=== PATIENT | male | born 1980 | race African-American/Black ===

== ENCOUNTER 2019-06-10 19:43 | Emergency (ER) | payer OTHER ==
[~2019-06-10] VITALS: Ht 170.2 cm; Wt 139.3 kg
[2019-06-10 20:06] VITALS: BP 149/88
[2019-06-10 20:36] LABS: INFLUENZA A PATIENT NEGATIVE (NEGATIVE); INFLUENZA B PATIENT NEGATIVE (NEGATIVE)
[2019-06-10] MEDS: IBUPROFEN 400 MG TABLET. PO ONE (20:47)
[2019-06-10] MEDS: ONDANSETRON ODT 4 MG TAB.RAPDIS. PO ONE (20:47)
[2019-06-10] MEDS: ACETAMINOPHEN 500 MG TABLET PO ONE (20:47)
--- NOTE | 2019-06-10 21:10 | RAD ---
CHEST PA LATERAL History: Fever, cough Comparison: None. Findings: Frontal and lateral views of chest were obtained. Limited pulmonary inflation noted. The cardiomediastinal silhouette is normal. Pulmonary vasculature is normal. The lungs are clear. No pleural effusion or pneumothorax is seen. There is no acute bone abnormality. IMPRESSION: No acute cardiopulmonary process. Electronically signed by: Russ Rojo MD (06/10/2019 9:07 PM) [facility]
[2019-06-10] MEDS ORDERED: ONDA4TAB12 PO (21:29)
--- NOTE | 2019-06-10 21:30 | PHYS DOC ---
Past Medical History Past Medical History: Hypertension (VALENTÍN NARAYAN APRN) Past Surgical History: No Surgical History (VALENTÍN NARAYAN APRN) Alcohol Use: None Drug Use: None (VALENTÍN NARAYAN APRN) Attending Signature I have participated in the care of this patient and I have reviewed and agree with all pertinent clinical information above including history, exam, and recommendations. (ABIMBOLA PANDEY MD) Adult General Chief Complaint Chief Complaint: FLU SYMPTOM HPI HPI Patient is a 38 year old male with history of hypertension who presents to the ED today complaining of fever and body aches, chills that began yesterday. Also complaining of one episode of vomiting yesterday. Denies any abdominal pain. (VALENTÍN NARAYAN APRN) Review of Systems Review of Systems Constitutional: Reports fever, body aches, chills Eyes: Denies change in visual acuity, redness, or eye pain [] HENT: Denies nasal congestion or sore throat [] Respiratory: Denies cough or shortness of breath [] Cardiovascular: No additional information not addressed in HPI [] GI: Reports one episode of vomiting. Denies abdominal pain, nausea, bloody stools or diarrhea [] : Denies dysuria or hematuria [] Musculoskeletal: Denies back pain or joint pain [] Integument: Denies rash or skin lesions [] Neurologic: Denies headache, focal weakness or sensory changes [] All other systems were reviewed and found to be within normal limits, except as documented in this note. (VALENTÍN NARAYAN APRN) Current Medications Current Medications Current Medications Medications (Trade) Dose Ordered Sig/[facility] Start Time Stop Time Status Last Admin Dose Admin Acetaminophen (Tylenol) 1,000 mg 1X ONCE 06/10/19 20:45 06/10/19 20:46 DC 06/10/19 20:47 1,000 MG Ibuprofen (Motrin) 800 mg 1X ONCE 06/10/19 20:45 06/10/19 20:46 DC 06/10/19 20:47 800 MG Ondansetron HCl (Zofran Odt) 4 mg 1X ONCE 06/10/19 20:45 06/10/19 20:46 DC 06/10/19 20:47 4 MG (ABIMBOLA PANDEY MD) Allergies Allergies Allergies Coded Allergies Type Severity Reaction Last Updated Verified No Known Drug Allergies 06/10/19 No (ABIMBOLA PANDEY MD) Physical Exam Physical Exam Constitutional: Well developed, well nourished, no acute distress, non-toxic appearance. [] HENT: Normocephalic, atraumatic, bilateral external ears normal, oropharynx moist, no oral exudates, nose normal. [] Eyes: PERRLA, EOMI, conjunctiva normal, no discharge. [] Neck: Normal range of motion, no tenderness, supple, no stridor. [] Cardiovascular:Heart rate regular rhythm, no murmur [] Lungs & Thorax: Bilateral breath sounds clear to auscultation [] Abdomen: Bowel sounds normal, soft, no tenderness, no masses, no pulsatile masses. [] Skin: Warm, dry, no erythema, no rash. [] Back: No tenderness, no CVA tenderness. [] Extremities: No tenderness, no cyanosis, no clubbing, ROM intact, no edema. [] Neurologic: Alert and oriented X 3, normal motor function, normal sensory function, no focal deficits noted. [] Psychologic: Affect normal, judgement normal, mood normal. [] (VALENTÍN NARAYAN APRN) Current Patient Data Vital Signs Vital Signs Date Time Temp Pulse Resp B/P (MAP) Pulse Ox O2 Delivery O2 Flow Rate FiO2 06/10/19 20:06 102.5 119 20 149/88 (108) 95 Room Air 102.5 (ABIMBOLA PANDEY MD) Lab Values Laboratory Tests Test 06/10/19 20:04 Influenza Type A Antigen Negative (NEGATIVE) Influenza Type B Antigen Negative (NEGATIVE) (ABIMBOLA PANDEY MD) EKG EKG [] (VALENTÍN NARAYAN APRN) Radiology/Procedures Radiology/Procedures [] (VALENTÍN NARAYAN APRN) Course & Med Decision Making Course & Med Decision Making Pertinent Labs and Imaging studies reviewed. (See chart for details) This is a 38-year-old male patient presented to the ED today with multiple aches, chills, symptoms began yesterday. Also complaining of one episode of vomiting yesterday. No abdominal pain. No tenderness of the abdomen. Temperature 102.5 on arrival. Negative influenza A or B, negative chest x-ray. Recommended supportive care measures. Given prescription for Zofran, Tylenol/Motrin for pain or fever. Instructed to push fluids and rest, follow-up with primary care doctor in the course of this week. (VALENTÍN NARAYAN APRN) Dragon Disclaimer Dragon Disclaimer This electronic medical record was generated, in whole or in part, using a voice recognition dictation system. (VALENTÍN NARAYAN APRN) Departure Departure Impression: Primary Impression: Fever Additional Impression: Vomiting Disposition: 01 HOME, SELF-CARE Condition: STABLE Referrals: NO PCP (PCP) follow up with your doctor in 1-2 weeks Patient Instructions: Fever, Adult, [id number], Nausea and Vomiting Additional Instructions: You were evaluated in the emergency room with symptoms suspicious of viral illness. Please push fluids, maintain good hand hygiene. Rest. Please take Tylenol every 4 hours and Motrin every 6 hours. Please take Zofran as needed for nausea or vomiting. Please follow-up with your own doctor in the next 1 week. Come back to the ED at any point symptoms worsen. Scripts Ondansetron (ONDANSETRON ODT) 4 Mg Tab.rapdis 1 TAB PO PRN Q6-8HRS, #16 TAB Prov: VALENTÍN NARAYAN APRN 06/10/19 Problem Qualifiers Primary Impression: Fever Fever type: unspecified Qualified Codes: R50.9 - Fever, unspecified Additional Impression: Vomiting Vomiting type: associated with bulimia nervosa Nausea presence: unspecified Qualified Codes: F50.2 - Bulimia nervosa VALENTÍN NARAYAN APRN Jun 10, 2019 21:29 ABIMBOLA PANDEY MD Jun 10, 2019 21:34
== END 2019-06-10 21:35 | disposition home or self-care (01) ==
LOC: ER 19:43
DX: R50.9 Fever, unspecified (principal); R11.10 Vomiting, unspecified; M79.10 Myalgia, unspecified site; I10 Essential (primary) hypertension
CPT/HCPCS: 71046; 87804; 99285; Q0162

== ENCOUNTER 2019-06-24 18:44 | Emergency (ER) | payer OTHER ==
[~2019-06-24 18:44] MED LIST: ONDA4TAB12 PO
[2019-06-24 19:43] LABS: BILIRUBIN,URINE NEGATIVE (NEG); CLARITY,URINE CLOUDY; COLOR,URINE YELLOW; NITRITE,URINE NEGATIVE (NEG); PROTEIN,URINE NEGATIVE (NEG-TRACE); UROBILINOGEN,URINE 0.2 mg/dL (0.2 mg/dL)
[2019-06-24 19:48] LABS: BACTERIA,URINE 0 /HPF (0-FEW); RBC,URINE OCC /HPF (0-2)
[2019-06-24 19:49] LABS: SQUAMOUS EPITHELIAL CELL,UR OCC /LPF
--- NOTE | 2019-06-24 20:22 | PHYS DOC ---
Past Medical History Past Medical History: Hypertension (CESAR HADDAD APRN) Past Surgical History: No Surgical History (CESAR HADDAD APRN) Alcohol Use: None Drug Use: None (CESAR HADDAD APRN) Attending Signature I have participated in the care of this patient and I have reviewed and agree with all pertinent clinical information above including history, exam, and recommendations. (ABIMBOLA PANDEY MD) Adult General Chief Complaint Chief Complaint: ABDOMINAL PAIN HPI HPI Patient is a 38 year old [male who presents with left lower quadrant abdominal pain. Patient reports he started have some pain earlier today, reports it has gotten a little bit worse. Does report he seems to have some difficulty passing urine. Does state he has taken an ibuprofen earlier today, but has not taken anything since that time. States he does have a loss of appetite, denies any nausea or vomiting. Denies any recent fevers. Denies any dyspnea. Last bowel movement this morning, however does report it was softer than usual and does seem to have some round pellets. (CESAR HADDAD APRN) Review of Systems Review of Systems Constitutional: Denies fever or chills [] Eyes: Denies change in visual acuity, redness, or eye pain [] HENT: Denies nasal congestion or sore throat [] Respiratory: Denies cough or shortness of breath [] Cardiovascular: No additional information not addressed in HPI [] GI: Reports left lower quadrant abdominal pain, minimal nausea. Denies vomiting, denies diarrhea, denies constipation[] : Denies dysuria or hematuria [] Musculoskeletal: Denies back pain or joint pain [] Integument: Denies rash or skin lesions [] Neurologic: Denies headache, focal weakness or sensory changes [] Endocrine: Denies polyuria or polydipsia [] All other systems were reviewed and found to be within normal limits, except as documented in this note. (CESAR HADDAD APRN) Current Medications Current Medications Current Medications Medications (Trade) Dose Ordered Sig/[facility] Start Time Stop Time Status Last Admin Dose Admin Ciprofloxacin (Cipro) 500 mg 1X ONCE 06/24/19 22:30 06/24/19 22:31 DC 06/24/19 22:25 500 MG Ketorolac Tromethamine (Toradol 15mg Vial) 15 mg 1X ONCE 06/24/19 20:30 06/24/19 20:31 DC 06/24/19 20:46 15 MG Metronidazole (Flagyl) 500 mg 1X ONCE 06/24/19 22:30 06/24/19 22:31 DC 06/24/19 22:25 500 MG Ondansetron HCl (Zofran) 4 mg 1X ONCE 06/24/19 20:30 06/24/19 20:31 DC 06/24/19 20:46 4 MG Sodium Chloride 1,000 ml @ 1,000 mls/hr 1X ONCE 06/24/19 20:30 06/24/19 21:29 DC 06/24/19 20:30 1,000 MLS/HR (ABIMBOLA PANDEY MD) Allergies Allergies Allergies Coded Allergies Type Severity Reaction Last Updated Verified No Known Drug Allergies 06/10/19 No (ABIMBOLA PANDEY MD) Physical Exam Physical Exam Constitutional: Well developed, well nourished, no acute distress, non-toxic appearance. Obese[] Eyes: PERRLA, EOMI, conjunctiva normal, no discharge. [] Neck: Normal range of motion, no tenderness, supple, no stridor. [] Cardiovascular:Heart rate regular rhythm, no murmur [] Lungs & Thorax: Bilateral breath sounds clear to auscultation [] Abdomen: Bowel sounds diminished overall, soft, left lower quadrant tenderness, no masses, no pulsatile masses. [] Skin: Warm, dry, no erythema, no rash. [] Back: No tenderness, no CVA tenderness. [] Extremities: No tenderness, no cyanosis, no clubbing, ROM intact, no edema. [] Neurologic: Alert and oriented X 3, normal motor function, normal sensory function, no focal deficits noted. [] Psychologic: Affect normal, judgement normal, mood normal. [] (CESAR HADDAD APRN) Current Patient Data Vital Signs Vital Signs Date Time Temp Pulse Resp B/P (MAP) Pulse Ox O2 Delivery O2 Flow Rate FiO2 06/24/19 22:29 104 22 154/97 (116) 98 Room Air 06/24/19 19:44 98.6 98.6 (ABIMBOLA PANDEY MD) Lab Values Laboratory Tests Test 06/24/19 19:25 06/24/19 20:50 Urine Collection Type Unknown Urine Color Yellow Urine Clarity Cloudy Urine pH 5.0 Urine Specific Ward 1.015 Urine Protein Negative mg/dL (NEG-TRACE) Urine Glucose (UA) Negative mg/dL (NEG) Urine Ketones (Stick) Negative mg/dL (NEG) Urine Blood Negative (NEG) Urine Nitrite Negative (NEG) Urine Bilirubin Negative (NEG) Urine Urobilinogen Dipstick 0.2 mg/dL (0.2 mg/dL) Urine Leukocyte Esterase Negative (NEG) Urine RBC Occ /HPF (0-2) Urine WBC 1-4 /HPF (0-4) Urine Squamous Epithelial Cells Occ /LPF Urine Bacteria 0 /HPF (0-FEW) Urine Mucus Mod /LPF White Blood Count 11.2 x10^3/uL (4.0-11.0) H Red Blood Count 6.10 x10^6/uL (4.30-5.70) H Hemoglobin 13.8 g/dL (13.0-17.5) Hematocrit 43.5 % (39.0-53.0) Mean Corpuscular Volume 71 fL (79-100) L Mean Corpuscular Hemoglobin 23 pg (25-35) L Mean Corpuscular Hemoglobin Concent 32 g/dL (31-37) Red Cell Distribution Width 15.1 % (11.5-14.5) H Platelet Count 315 x10^3/uL (140-400) Neutrophils (%) (Auto) 73 % (31-73) Lymphocytes (%) (Auto) 18 % (24-48) L Monocytes (%) (Auto) 8 % (0-9) Eosinophils (%) (Auto) 0 % (0-3) Basophils (%) (Auto) 1 % (0-3) Neutrophils # (Auto) 8.1 x10^3/uL (1.8-7.7) H Lymphocytes # (Auto) 2.0 x10^3/uL (1.0-4.8) Monocytes # (Auto) 0.9 x10^3/uL (0.0-1.1) Eosinophils # (Auto) 0.0 x10^3/uL (0.0-0.7) Basophils # (Auto) 0.1 x10^3/uL (0.0-0.2) Platelet Estimate Adequate (ADEQUATE) Polychromasia Slight Hypochromasia Mod Microcytosis Marked Sodium Level 135 mmol/L (136-145) L Potassium Level 3.7 mmol/L (3.5-5.1) Chloride Level 99 mmol/L (98-107) Carbon Dioxide Level 28 mmol/L (21-32) Anion Gap 8 (6-14) Blood Urea Nitrogen 9 mg/dL (8-26) Creatinine 1.1 mg/dL (0.7-1.3) Estimated GFR (Cockcroft-Gault) 90.6 BUN/Creatinine Ratio 8 (6-20) Glucose Level 119 mg/dL (70-99) H Calcium Level 9.2 mg/dL (8.5-10.1) Total Bilirubin 0.7 mg/dL (0.2-1.0) Aspartate Amino Transferase (AST) 15 U/L (15-37) Alanine Aminotransferase (ALT) 26 U/L (16-63) Alkaline Phosphatase 60 U/L (46-116) Total Protein 7.8 g/dL (6.4-8.2) Albumin 3.6 g/dL (3.4-5.0) Albumin/Globulin Ratio 0.9 (1.0-1.7) L Lipase 64 U/L (73-393) L Laboratory Tests 06/24/19 20:50 Laboratory Tests 06/24/19 20:50 (ABIMBOLA PANDEY MD) EKG EKG [] (CESAR HADDAD APRN) Radiology/Procedures Radiology/Procedures [] Mild basilar volume loss. Unremarkable visualized heart. Limited evaluation of the solid abdominal and pelvic organs without intravenous contrast. No focal hepatic abnormality. Small focus of mineralization along the right liver margin on image 21 series 2. Unremarkable gallbladder, pancreas, spleen and adrenal glands. No nephrolithiasis or hydroureteronephrosis. Unremarkable urinary bladder and prostate. Segmental colonic wall thickening with surrounding inflammatory changes involving the mid descending colon. Punctate focus of air medial to the colon in this region, image 52 series 2. This is favored air within an inflamed diverticulia when correlating with coronal image 32 series 4. No fluid collection. Normal appendix. Nonobstructed small bowel. Unremarkable stomach. Minimal vascular calcifications. No free pelvic fluid. Age accelerated lower lumbar facet degeneration at L5-S1 more so than L4-L5. This results in bony neural foraminal encroachment on the left more so than right at L5-S1. This is severe on the left. Impression: 1. Colonic wall edema and surrounding inflammatory changes involving the mid descending colon that appears secondary to diverticulitis. Tiny focus of air along the colon that is surrounded by inflammatory changes is favored secondary to air within an inflamed diverticula as opposed to a small contained perforation. No fluid collection or bowel obstruction. 2. Age-accelerated lower lumbar facet degeneration. This results in severe bony neural foraminal encroachment on the left at L5-S1. Recommend correlation for chronic symptoms referrable to the left L5 distribution. Electronically signed by: SHERIE MAGALLON MD (06/24/2019 9:23 PM) [facility] [place] (CESAR HADDAD APRN) Course & Med Decision Making Course & Med Decision Making Pertinent Labs and Imaging studies reviewed. (See chart for details) [Reviewed results with patient, will treat patient. One dose here and we'll provide prescription for remaining medications. Patient advised to avoid alcohol taking metronidazole. Advised patient to take the entire course as prescribed. Advised patient to watch his diet, increase fiber, follow up with primary care (CESAR HADDAD APRN) Dragon Disclaimer Dragon Disclaimer This electronic medical record was generated, in whole or in part, using a voice recognition dictation system. (CESAR HADDAD APRN) Departure Departure Impression: Primary Impression: Diverticulitis Disposition: HOME, SELF-CARE Condition: GOOD Referrals: NO PCP (PCP) Patient Instructions: Diverticulitis, [id number] Additional Instructions: As he described, make sure to take the antibiotics as prescribed for the entire duration. Avoid alcohol when taking the medication. Try to increase fiber in your diet. Scripts Ciprofloxacin Hcl (CIPROFLOXACIN HCL) 500 Mg Tablet 1 TAB PO BID, #20 TAB Prov: CESAR HADDAD APRN 06/24/19 Metronidazole (METRONIDAZOLE) 500 Mg Tablet 1 TAB PO TID for 10 Days, #30 TAB 0 Refills Prov: CESAR HADDAD APRN 06/24/19 CESAR HADDAD APRN Jun 24, 2019 20:22 ABIMBOLA PANDEY MD Jun 25, 2019 07:55
[2019-06-24] MEDS: IV NORMAL SALINE 1000ML BAG 1,000 ML IV ONE (20:30)
[2019-06-24] MEDS: ONDANSETRON PF 4 MG/2 ML VIAL. IVP ONE (20:46)
[2019-06-24] MEDS: KETOROLAC 15 MG/ML VIAL. IVP ONE (20:46)
[2019-06-24 21:02] LABS: BASO # 0.1 x10^3/uL (0.0-0.2); BASO % 1 % (0-3); EOS % 0 % (0-3); HEMATOCRIT 43.5 % (39.0-53.0); HEMOGLOBIN 13.8 g/dL (13.0-17.5); LYMPH % 18 % (24-48); MEAN CORPUSCULAR HEMOGLOBIN 23 pg (25-35); MEAN CORPUSCULAR HGB CONC 32 g/dL (31-37); MEAN CORPUSCULAR VOLUME 71 fL (79-100); MONO # 0.9 x10^3/uL (0.0-1.1); MONO % 8 % (0-9); NEUT # 8.1 x10^3/uL (1.8-7.7); NEUT % 73 % (31-73); PLATELET COUNT 315 x10^3/uL (140-400); RED CELL DISTRIBUTION WIDTH 15.1 % (11.5-14.5); WHITE BLOOD COUNT 11.2 x10^3/uL (4.0-11.0)
[2019-06-24 21:11] LABS: CALCIUM 9.2 mg/dL (8.5-10.1); CREATININE 1.1 mg/dL (0.7-1.3); GFR 90.6; POTASSIUM 3.7 mmol/L (3.5-5.1)
[2019-06-24 21:18] LABS: ALBUMIN 3.6 g/dL (3.4-5.0); ALBUMIN/GLOBULIN RATIO 0.9 (1.0-1.7); TOTAL BILIRUBIN 0.7 mg/dL (0.2-1.0); TOTAL PROTEIN 7.8 g/dL (6.4-8.2)
--- NOTE | 2019-06-24 21:26 | RAD ---
Study: CT abdomen and pelvis without contrast Indication: Left lower quadrant abdominal pain. Comparison: None. Technique: Helical CT imaging performed of the abdomen and pelvis without the use of intravenous contrast. Sagittal and coronal reformats were obtained. One or more of the following individualized dose reduction techniques were utilized for this examination: 1. Automated exposure control 2. Adjustment of the mA and/or kV according to patient size 3. Use of iterative reconstruction technique. Findings: Mild basilar volume loss. Unremarkable visualized heart. Limited evaluation of the solid abdominal and pelvic organs without intravenous contrast. No focal hepatic abnormality. Small focus of mineralization along the right liver margin on image 21 series 2. Unremarkable gallbladder, pancreas, spleen and adrenal glands. No nephrolithiasis or hydroureteronephrosis. Unremarkable urinary bladder and prostate. Segmental colonic wall thickening with surrounding inflammatory changes involving the mid descending colon. Punctate focus of air medial to the colon in this region, image 52 series 2. This is favored air within an inflamed diverticulia when correlating with coronal image 32 series 4. No fluid collection. Normal appendix. Nonobstructed small bowel. Unremarkable stomach. Minimal vascular calcifications. No free pelvic fluid. Age accelerated lower lumbar facet degeneration at L5-S1 more so than L4-L5. This results in bony neural foraminal encroachment on the left more so than right at L5-S1. This is severe on the left. Impression: 1. Colonic wall edema and surrounding inflammatory changes involving the mid descending colon that appears secondary to diverticulitis. Tiny focus of air along the colon that is surrounded by inflammatory changes is favored secondary to air within an inflamed diverticula as opposed to a small contained perforation. No fluid collection or bowel obstruction. 2. Age-accelerated lower lumbar facet degeneration. This results in severe bony neural foraminal encroachment on the left at L5-S1. Recommend correlation for chronic symptoms referrable to the left L5 distribution. Electronically signed by: SHERIE MAGALLON MD (06/24/2019 9:23 PM) [facility] [place]
[2019-06-24 21:35] LABS: HYPOCHROMIA MOD; MICROCYTOSIS MARKED; PLT ESTIMATE ADEQUATE (ADEQUATE); POLYCHROMASIA SLIGHT
[2019-06-24] MEDS ORDERED: METR-34 PO (22:23)
[2019-06-24] MEDS ORDERED: CIPR500T PO (22:23)
[2019-06-24] MEDS: CIPROFLOXACIN HCL 250 MG TABLET. PO ONE (22:25)
[2019-06-24] MEDS: metroNIDAZOLE 500 MG TABLET PO ONE (22:25)
[2019-06-24 22:29] VITALS: BP 154/97
== END 2019-06-24 22:32 | disposition home or self-care (01) ==
LOC: ER 18:44
DX: K57.92 Diverticulitis of intestine, part unspecified, without perforation or abscess without bleeding (principal); I10 Essential (primary) hypertension; R19.7 Diarrhea, unspecified
CPT/HCPCS: 36415; 74176; 80053; 81001; 83690; 85025; 96361; 96374; 96375; 99285; J1885; J2405; J7030

== ENCOUNTER 2021-03-08 09:44 | Emergency (ER) | payer OTHER ==
[~2021-03-08] VITALS: Ht 175.3 cm; Wt 135.4 kg
[~2021-03-08 09:44] MED LIST changes: +CIPR500T2 PO; +METR-34 PO
--- NOTE | 2021-03-08 10:08 | PHYS DOC ---
Past Medical History Past Medical History: Hypertension (KAREL MONROY RECLAMATION ENGINEER) Past Surgical History: No Surgical History (KAREL MONROY RECLAMATION ENGINEER) Smoking Status: Former Smoker Alcohol Use: None Drug Use: None (KAREL MONROY APRN) General Adult EDM: Chief Complaint: NAUSEA/VOMITING/DIARRHEA HPI: HPI: Patient is a 40 year old male who presents with last week he had diarrhea nausea and vomiting but this week he has had this nausea and vomiting epigastric pain. He states that the pain does not radiate and just sits in the epigastric area and is like a dull and sharp type pain. He denies fever, chest pain, shortness of breath, cough, headache, dizziness, syncope, vision change, numbness or tingling, focal weakness, blood in his vomit or stool. He states he takes no medications daily. He is a smoker and he did have the Covid Norm & Norm vaccine in September. He does have a history of in our charting that says he has hypertension. He states he has been keeping some water and Gatorade down. (KAREL MONROY RECLAMATION ENGINEER) Review of Systems: Review of Systems: Constitutional: Denies fever or chills. [] Eyes: Denies change in visual acuity. [] HENT: Denies nasal congestion or sore throat. [] Respiratory: Denies cough or shortness of breath. [] Cardiovascular: Denies chest pain or edema. [] GI: + Epigastric abdominal pain, +nausea, +vomiting, denies bloody stools or +diarrhea. [] : Denies dysuria. [] Musculoskeletal: Denies back pain or joint pain. [] Integument: Denies rash. [] Neurologic: Denies headache, focal weakness or sensory changes. [] Endocrine: Denies polyuria or polydipsia. [] Lymphatic: Denies swollen glands. [] Psychiatric: Denies depression or anxiety. [] (KAREL MONROY RECLAMATION ENGINEER) Heart Score: C/O Chest Pain: No HEART Score for Chest Pain: HEART Score for Chest Pain Response (Comments) Value History Slighlty/Non-Suspicious 0 ECG Normal 0 Age < 45 0 Risk Factors 1 or 2 Risk Factors 1 Troponin < Normal Limit 0 Total 1 Risk Factors: Risk Factors: DM, Current or recent (<one month) smoker, HTN, HLP, family history of CAD, obesity. Risk Scores: Score 0 - 3: 2.5% MACE over next 6 weeks - Discharge Home Score 4 - 6: 20.3% MACE over next 6 weeks - Admit for Clinical Observation Score 7 - 10: 72.7% MACE over next 6 weeks - Early Invasive Strategies (KAREL MONROY APRN) Current Medications: Current Medications Medications (Trade) Dose Ordered Sig/Marybeth Start Time Stop Time Status Last Admin Dose Admin Famotidine (Pepcid Vial) 20 mg 1X ONCE 03/08/21 10:00 03/08/21 10:01 UNV Ondansetron HCl (Zofran) 4 mg 1X ONCE 03/08/21 10:00 03/08/21 10:01 UNV Sodium Chloride 1,000 ml @ 1,000 mls/hr Q1H 03/08/21 10:00 03/08/21 10:59 UNV (KAREL MONROY APRN) Allergies: Allergies: Allergies Coded Allergies Type Severity Reaction Last Updated Verified No Known Drug Allergies 06/10/19 No (KAREL MONROY APRN) Physical Exam: PE: Constitutional: Well developed, well nourished, no acute distress, non-toxic appearance. [] HENT: Normocephalic, atraumatic, bilateral external ears normal, oropharynx moist, no oral exudates, nose normal. [] Eyes: PERRLA, EOMI, conjunctiva normal, no discharge. [] Neck: Normal range of motion, no tenderness, supple, no stridor. [] Cardiovascular:Heart rate regular rhythm, no murmur [] Lungs & Thorax: Bilateral breath sounds clear to auscultation [] Abdomen: Bowel sounds normal, soft, epigastric tenderness, no masses, no pulsatile masses. [] Skin: Warm, dry, no erythema, no rash. [] Back: No tenderness, no CVA tenderness. [] Extremities: No tenderness, no cyanosis, no clubbing, ROM intact, no edema. [] Neurologic: Alert and oriented X 3, normal motor function, normal sensory function, no focal deficits noted. [] Psychologic: Affect normal, judgement normal, mood normal. [] (KAREL MONROY APRN) EKG: EK and read by Dr. Johnson is sinus rhythm and no STEMI. No ischemic changes (KAREL MONROY APRN) Radiology/Procedures: Radiology/Procedures: [] Impression: [facility] [address] [place], [place] [id number] IMAGING REPORT Signed PATIENT: BYRNO PRADO ACCOUNT: [id number] : 1980 LOCATION: ER AGE: 40 SEX: M EXAM STATUS: REG ER ORD. PHYSICIAN: KAREL MONROY APRN REASON: diarrhea, vomiting, nausea, abdominal tenderness PROCEDURE: CT ABD PELV W/ IV CONTRST ONLY PQRS Compliance Statement: One or more of the following individualized dose reduction techniques were utilized for this examination: 1. Automated exposure control 2. Adjustment of the mA and/or kV according to patient size 3. Use of iterative reconstruction technique CT abdomen/pelvis with contrast 03/08/2021 12:03 PM INDICATION: Diarrhea, vomiting, nausea and abdominal tenderness COMPARISON: CT abdomen 06/24/2019 TECHNIQUE: Multiple axial CT images of the abdomen and pelvis were obtained after the intravenous administration of Isovue-370. Coronal and sagittal refor mats are provided. FINDINGS: Evaluation of the abdomen is limited by motion artifact. There is bibasilar subsegmental atelectasis and/or scarring. Mild cardiomegaly. Pancreas and gallbladder are normal in appearance. Liver, spleen, and adrenal glands are normal in appearance. The abdominal aorta is normal in course and caliber. There are no pathologically enlarged lymph nodes in the abdomen and pelvis. There is no abdominal free fluid. There is no free intraperitoneal air. Small and large bowel are normal in caliber. There is no evidence for bowel obstruction. There are no pericolonic inflammatory changes. A normal, nondilated appendix is visualized without adjacent inflammatory changes. There is ill-defined hypoenhancement of the interpolar left kidney measuring approximately 4.4 x 3.0 cm with perinephric fat stranding. Additional wedge- shaped area of hypoattenuation identified along the inferior pole of left kidney. Findings are most suggestive of pyelonephritis. Urinary bladder is within normal limits given degree of distention. Prostate and seminal vesicles are normal. Small fat-containing bilateral inguinal hernias. No suspicious osseous abnormality is identified. IMPRESSION: Constellation of findings is most suggestive of pyelonephritis involving the left kidney. Correlate with urinalysis. If there are no signs or symptoms of infection, this may increase suspicion for underlying renal neoplasm. Short-term follow-up renal mass protocol CT could be of benefit to assess for resolution or underlying neoplastic process. Electronically signed by: Tone Kramer MD (03/08/2021 12:40 PM) [id number] DICTATED and SIGNED BY: TONE KRAMER MD DATE: 03/08/21 [id number] [facility] [address] [place], [place] [id number] IMAGING REPORT Signed PATIENT: BYRON PRADO ACCOUNT: [id number] : 1980 LOCATION: ER AGE: 40 SEX: M EXAM STATUS: REG ER ORD. PHYSICIAN: KAREL MONROY APRN REASON: ABDNORMAL FINDINGS ON CT PROCEDURE: RENAL COMPLETE LEFT EXAM: RENAL ULTRASOUND CLINICAL HISTORY: Reason: ABDNORMAL FINDINGS ON CT specifically, findings of pyelonephritis of the left kidney although underlying mass lesion cannot be excluded. Vomiting/nausea and abdominal tenderness. COMPARISON: CT study performed today. TECHNIQUE: Ultrasound examination of the bilateral kidneys and urinary bladder was performed. FINDINGS: The longitudinal and AP and transverse dimensions of the left kidney are 12.8 cm and 5.5 cm and 5.0 cm respectively. No hydronephrosis or renal mass or per inephric fluid collection is seen on the left side. The right kidney was not evaluated sonographically. The urinary bladder is not abnormally distended. No intraluminal echodensities or masses are seen. IMPRESSION: Normal left renal sonogram. No obvious mass lesion is seen sonographically. Finding seen on CT are consistent with pyelonephritis. Electronically signed by: Senthil Wilcox MD (03/08/2021 3:08 PM) [id number] DICTATED and SIGNED BY: SENTHIL WILCOX MD DATE: 03/08/21 [id number] (KAREL MONROY APRN) Course & Med Decision Making: Course & Med Decision Making Pertinent Labs and Imaging studies reviewed. (See chart for details) COVID-19 CRITERIA: The patient was evaluated during the global COVID-19 pandemic, and that diagnosis was suspected/considered upon their initial p resentation. Their evaluation, treatment and testing was consistent with current guidelines for patients who present with complaints or symptoms that may be related to COVID-19. Alert and oriented x4. Ambulatory steady gait. Speaks in full clear sentences. Skin pink warm and dry. Afebrile. Abdomen is soft but tender to the epigastric area. No rigidity. Lungs are clear to auscultation all lobes. CT scan reading suggesting findings of pyelonephritis and possible underlying renal neoplasm. I have ordered Rocephin IV. He is also received a liter of IV fluid. Troponin only slight elevated at 0.021. No specific Ekg changes to suspect STEMI or cardiac event, also all symptoms have been going on for [address] Johnson aware of this and states no need to repeat troponin. Heart score is a 1. Renal US showed no acute findings. Urinalysis does not show infection or bacteria. No kidney symptoms. Patient has Gastroenteritis likely. I have gone over these findings with Dr Johnson and he states to send patient home and to follow up with primary care provider. [] (KAREL MONROY APRN) Course & Med Decision Making I discussed the case with the [facility] staff. Patient presented with several weeks of gastrointestinal symptoms and epigastric discomfort. EKG was nonischemic. Troponin did not meet levels for NSTEMI. Given duration of symptoms, do not feel that delta troponin would be helpful at this time. Patient is a 40-year-old male without coronary risk factor and no typical chest pain. Likelihood of CAD is very low. CT imaging did show some perinephric fat stranding on the left, but the patient did not report any urinary symptoms to suggest infection and his UA was without infectious changes. UA also did not show any blood. Ultrasound follow-up study showed a normal appearance of the kidney, no evidence of neoplasm. Given no urinary symptoms antibiotic coverage was deferred after he initially had Rocephin ordered in the ED. He was instructed to follow-up with his PCP regarding his ED work-up. (MAKAYLA JOHNSON MD) Dragon Disclaimer: Dragon Disclaimer: This electronic medical record was generated, in whole or in part, using a voice recognition dictation system. (KAREL MONROY APRN) COVID-19 Patient Risks: Age 65 or older: No Sign of co-morbidity: Yes Exp to person + for COVID: No Exp to PUI: No Travel from affected area: No Lower respiratory symptoms: Yes Fever: No Other: Yes (N,V) (KAREL MONROY APRN) PPE Use: Full PPE with N95 mask or PAPR: Yes (KAREL MONROY APRN) Departure Departure Impression: Primary Impression: Nausea & vomiting Qualified Codes: R11.2 - Nausea with vomiting, unspecified Additional Impressions: Diarrhea Qualified Codes: R19.7 - Diarrhea, unspecified Abnormal radiologic findings on diagnostic imaging of left kidney Disposition: HOME / SELF CARE / HOMELESS Condition: STABLE Referrals: NO PCP (PCP) Patient Instructions: Diarrhea, Diet for Diarrhea, Adult, Incidental Abnormal Radiological Finding, Nausea and Vomiting Additional Instructions: Follow-up with your primary care provider soon as possible. Drink plenty of fluids. If you continue to have vomiting and diarrhea or pain you need to return emergency room. Scripts Ondansetron (ONDANSETRON ODT) 4 Mg Tab.rapdis 1 TAB PO PRN Q6-8HRS, #16 TAB Prov: KAREL MONROY APRN 03/08/21 Famotidine (FAMOTIDINE) 20 Mg Tablet 20 MG PO BID, #25 TAB Prov: KAREL MONROY APRN 03/08/21 KAREL MONROY APRN Mar 08, 2021 10:08 MAKAYLA JOHNSON MD Mar 08, 2021 15:48
[2021-03-08] MEDS: IOHEXOL 300 MG/ML 100ML VIAL. IV ONE (10:15)
[2021-03-08] MEDS ORDERED: CONTRAST GIVEN. MC PRN (10:15)
[2021-03-08] MEDS: IV NORMAL SALINE 1000ML BAG 1,000 ML IV SCH (10:21)
[2021-03-08] MEDS: ONDANSETRON PF 4 MG/2 ML VIAL. IVP ONE (10:21)
[2021-03-08] MEDS: FAMOTIDINE 20 MG/2 ML VIAL IVP ONE (10:21)
[2021-03-08 10:34] LABS: BASO # 0.1 x10^3/uL (0.0-0.2); BASO % 1 % (0-3); EOS % 0 % (0-3); HEMATOCRIT 42.4 % (39.0-53.0); HEMOGLOBIN 13.8 g/dL (13.0-17.5); LYMPH # 2.4 x10^3/uL (1.0-4.8); LYMPH % 27 % (24-48); MEAN CORPUSCULAR HEMOGLOBIN 24 pg (25-35); MEAN CORPUSCULAR HGB CONC 33 g/dL (31-37); MEAN CORPUSCULAR VOLUME 72 fL (79-100); MONO # 0.9 x10^3/uL (0.0-1.1); MONO % 10 % (0-9); NEUT # 5.7 x10^3/uL (1.8-7.7); NEUT % 62 % (31-73); PLATELET COUNT 266 x10^3/uL (140-400); RED BLOOD COUNT 5.86 x10^6/uL (4.30-5.70); RED CELL DISTRIBUTION WIDTH 14.5 % (11.5-14.5); WHITE BLOOD COUNT 9.1 x10^3/uL (4.0-11.0)
[2021-03-08 11:33] LABS: CALCIUM 8.4 mg/dL (8.5-10.1); CREATININE 1.2 mg/dL (0.7-1.3); GFR 81.1; POTASSIUM 3.6 mmol/L (3.5-5.1)
[2021-03-08 11:42] LABS: ALBUMIN 3.2 g/dL (3.4-5.0); ALBUMIN/GLOBULIN RATIO 0.9 (1.0-1.7); MAGNESIUM 2.1 mg/dL (1.8-2.4); TOTAL BILIRUBIN 0.9 mg/dL (0.2-1.0); TOTAL PROTEIN 6.7 g/dL (6.4-8.2)
[2021-03-08 13:24] LABS: BILIRUBIN,URINE NEGATIVE (NEG); CLARITY,URINE CLEAR; COLOR,URINE YELLOW; NITRITE,URINE NEGATIVE (NEG); PH,URINE 5.5 (<5.0-8.0); PROTEIN,URINE NEGATIVE (NEG-TRACE)
[2021-03-08 13:31] LABS: BARBITURATES NEG (NEG); BENZODIAZEPINES NEG (NEG); CANNABINOIDS POS (NEG); COCAINE NEG (NEG); METHADONE NEG (NEG); OPIATES NEG (NEG); PHENCYCLIDINE NEG (NEG)
[2021-03-08 13:33] LABS: AMPHETAMINE/METHAMPHETAMINE NEG (NEG); HYALINE CASTS, URINE FEW /HPF
[2021-03-08 13:38] LABS: BACTERIA,URINE 0 /HPF (0-FEW); RBC,URINE 0 /HPF (0-2); WBC,URINE 0 /HPF (0-4)
--- NOTE | 2021-03-08 14:00 | RAD ---
PQRS Compliance Statement: One or more of the following individualized dose reduction techniques were utilized for this examinat ion: 1. Automated exposure control 2. Adjustment of the mA and/or kV according to patient size 3. Use of iterative reconstruction technique CT abdomen/pelvis with contrast 03/08/2021 12:03 PM INDICATION: Diarrhea, vomiting, nausea and abdominal tenderness COMPARISON: CT abdomen 06/24/2019 TECHNIQUE: Multiple axial CT images of the abdomen and pelvis were obtained after the intravenous adm inistration of Isovue-370. Coronal and sagittal reformats are provided. FINDINGS: Evaluation of the abdomen is limited by motion artifact. There is bibasilar subsegmental at electasis and/or scarring. Mild cardiomegaly. Pancreas and gallbladder are normal in appearance. Live r, spleen, and adrenal glands are normal in appearance. The abdominal aorta is normal in course and caliber. There are no pathologically enlarged lymph nodes in the abdomen and pelvis. There is no abdominal free fluid. There is no free intraperitoneal air. Small and large bowel are normal in caliber. There is no evidence for bowel obstruction. There are no pericolonic inflammatory changes. A normal, nondilated appendix is visualized without adjacent infla mmatory changes. There is ill-defined hypoenhancement of the interpolar left kidney measuring approximately 4.4 x 3.0 cm with perinephric fat stranding. Additional wedge-shaped area of hypoattenuation identified along t he inferior pole of left kidney. Findings are most suggestive of pyelonephritis. Urinary bladder is within normal limits given degree of distention. Prostate and seminal vesicles are normal. Small fat-containing bilateral inguinal hernias. No suspicious osseous abnormality is identi fied. IMPRESSION: Constellation of findings is most suggestive of pyelonephritis involving the left kidney. Correlate w ith urinalysis. If there are no signs or symptoms of infection, this may increase suspicion for under lying renal neoplasm. Short-term follow-up renal mass protocol CT could be of benefit to assess for r esolution or underlying neoplastic process. Electronically signed by: Wendi Mello MD (03/08/2021 12:40 PM) [id number]
[2021-03-08] MEDS: cefTRIAXone IV Push 1 GM VIAL. IVP ONE (14:11)
--- NOTE | 2021-03-08 15:11 | RAD ---
EXAM: RENAL ULTRASOUND CLINICAL HISTORY: Reason: ABDNORMAL FINDINGS ON CT specifically, findings of pyelonephritis of the l eft kidney although underlying mass lesion cannot be excluded. Vomiting/nausea and abdominal tenderne ss. COMPARISON: CT study performed today. TECHNIQUE: Ultrasound examination of the bilateral kidneys and urinary bladder was performed. FINDINGS: The longitudinal and AP and transverse dimensions of the left kidney are 12.8 cm and 5.5 cm and 5.0 c m respectively. No hydronephrosis or renal mass or perinephric fluid collection is seen on the left s francia. The right kidney was not evaluated sonographically. The urinary bladder is not abnormally disten ded. No intraluminal echodensities or masses are seen. IMPRESSION: Normal left renal sonogram. No obvious mass lesion is seen sonographically. Finding seen on CT are co nsistent with pyelonephritis. Electronically signed by: Gaudencio Wilcox MD (03/08/2021 3:08 PM) [id number]
--- NOTE | 2021-03-08 15:18 | EKG ---
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
[2021-03-08] MEDS ORDERED: ONDA4TAB12 PO (15:20)
[2021-03-08] MEDS ORDERED: FAMO20TA5 PO (15:20)
[2021-03-08 15:30] VITALS: BP 152/99
== END 2021-03-08 15:50 | disposition home or self-care (01) ==
LOC: ER 09:44
DX: R11.2 Nausea with vomiting, unspecified (principal); Z20.822 Contact with and (suspected) exposure to COVID-19; R19.7 Diarrhea, unspecified; R93.422 Abnormal radiologic findings on diagnostic imaging of left kidney; R10.13 Epigastric pain; I10 Essential (primary) hypertension; Z87.891 Personal history of nicotine dependence
CPT/HCPCS: 36415; 74177; 76775; 80053; 80307; 81001; 83690; 83735; 84484; 85025; 87426; 93005; 96361; 96374; 96375; 99285; J0696; J2405; J3490; J7030; Q9967; U0003; U0005

== ENCOUNTER 2021-03-15 02:43 | Inpatient (IN) | payer OTHER ==
[~2021-03-15] VITALS: Ht 175.3 cm; Wt 136.5 kg
[~2021-03-15 02:43] MED LIST changes: +FAMO20TA5 PO
--- NOTE | 2021-03-15 04:03 | PHYS DOC ---
Past Medical History Past Medical History: Hypertension Past Surgical History: No Surgical History Smoking Status: Current Every Day Smoker Alcohol Use: None Drug Use: None General Adult EDM: Chief Complaint: SHORTNESS OF BREATH HPI: HPI: Patient is a 40-year-old male who presents for shortness of breath. He is here 1 week ago for similar complaints in addition to constellation of upper respiratory and gastrointestinal symptoms that were nonconcerning for any emergent or surgical issues, he is Covid negative at that time with unremarkable work-up and discharged home. He reports improvement in URI symptoms but ongoing shortness of breath that is worse when lying flat in addition to intermittent nausea and looser stools than usual. He denies any significant cardiac history or other known medical issues, takes no medications on a daily basis. He smokes, denies alcohol or illicit drug abuse. Has no significant family medical history for early cardiac . States that he was trying to sleep this evening but was having worsening shortness of breath when lying flat and at times, woke up in a panic gasping for breath. Review of Systems: Review of Systems: Fourteen body systems of review of systems have been reviewed. See HPI for pertinent positives and negative responses, other dixon all other systems are negative, non-pertinent or non-contributory Heart Score: C/O Chest Pain: No HEART Score for Chest Pain: HEART Score for Chest Pain Response (Comments) Value History Slighlty/Non-Suspicious 0 ECG Normal 0 Age < 45 0 Risk Factors 1 or 2 Risk Factors 1 Troponin < Normal Limit 0 Total 1 Risk Factors: Risk Factors: DM, Current or recent (<one month) smoker, HTN, HLP, family history of CAD, obesity. Risk Scores: Score 0 - 3: 2.5% MACE over next 6 weeks - Discharge Home Score 4 - 6: 20.3% MACE over next 6 weeks - Admit for Clinical Observation Score 7 - 10: 72.7% MACE over next 6 weeks - Early Invasive Strategies Allergies: Allergies: Allergies Coded Allergies Type Severity Reaction Last Updated Verified No Known Drug Allergies 06/10/19 No Physical Exam: PE: Constitutional: Well developed, well nourished and obese, nontoxic in appearance but appears uncomfortable HENT: Normocephalic, atraumatic, bilateral external ears normal, oropharynx moist, no oral exudates, nose normal. Eyes: PERRLA, EOMI, conjunctiva normal, no discharge. Neck: Normal range of motion, no tenderness, supple, no stridor. Cardiovascular: Heart rate regular, sinus rhythm, no murmurs rubs or gallops Lungs & Thorax: Increased work of breathing, accessory muscle use noted in neck, appears uncomfortable with bibasilar Rales Abdomen: Bowel sounds normal, soft, no tenderness, no masses, no pulsatile masses. Nonsurgical abdomen, no peritoneal signs Skin: Warm, dry, no erythema, no rash. Back: No tenderness, no CVA tenderness. Extremities: No tenderness, no cyanosis, no clubbing, ROM intact, no edema. Neurologic: Alert and oriented X 3, grossly normal motor & sensory function, no focal deficits noted. Psychologic: Anxious affect and mood Current Patient Data: Labs: Laboratory Tests Test 03/15/21 04:05 03/15/21 04:50 SARS-CoV-2 Antigen (Rapid) Negative White Blood Count 7.7 x10^3/uL Red Blood Count 5.52 x10^6/uL Hemoglobin 12.7 g/dL Hematocrit 39.9 % Mean Corpuscular Volume 72 fL Mean Corpuscular Hemoglobin 23 pg Mean Corpuscular Hemoglobin Concent 32 g/dL Red Cell Distribution Width 15.0 % Platelet Count 376 x10^3/uL Neutrophils (%) (Auto) 57 % Lymphocytes (%) (Auto) 34 % Monocytes (%) (Auto) 7 % Eosinophils (%) (Auto) 1 % Basophils (%) (Auto) 2 % Neutrophils # (Auto) 4.3 x10^3/uL Lymphocytes # (Auto) 2.6 x10^3/uL Monocytes # (Auto) 0.5 x10^3/uL Eosinophils # (Auto) 0.1 x10^3/uL Basophils # (Auto) 0.1 x10^3/uL Sodium Level 141 mmol/L Potassium Level 3.8 mmol/L Chloride Level 105 mmol/L Carbon Dioxide Level 26 mmol/L Anion Gap 10 Blood Urea Nitrogen 10 mg/dL Creatinine 1.2 mg/dL Estimated GFR (Cockcroft-Gault) 81.1 BUN/Creatinine Ratio 8 Glucose Level 110 mg/dL Calcium Level 8.9 mg/dL Total Bilirubin 0.3 mg/dL Aspartate Amino Transf (AST/SGOT) 12 U/L Alanine Aminotransferase (ALT/SGPT) 25 U/L Alkaline Phosphatase 47 U/L Troponin I Quantitative 0.037 ng/mL AT-Mgm-C-Type Natriuretic Peptide 2774 pg/mL Total Protein 7.4 g/dL Albumin 3.1 g/dL Albumin/Globulin Ratio 0.7 Current Medications Medications (Trade) Dose Ordered Sig/Marybeth Route PRN Reason Start Time Stop Time Status Last Admin Dose Admin Iohexol (Omnipaque 350 Mg/ml) 100 ml 1X ONCE IV 03/15/21 05:30 03/15/21 05:31 DC 03/15/21 05:45 Info (CONTRAST GIVEN -- Rx MONITORING) 1 each PRN DAILY PRN MC SEE COMMENTS 03/15/21 05:30 03/17/21 05:29 Vital Signs: Vital Signs Date Time Temp Pulse Resp B/P (MAP) Pulse Ox O2 Delivery O2 Flow Rate FiO2 03/15/21 03:30 98.7 106 20 162/109 (126) Room Air 98.7 EKG: EKG: This rhythmEKG ordered and interpreted by myself 0 [place] is 95 bpm, unremarkable intervals, no axis deviation, no STEMI Radiology/Procedures: Radiology/Procedures: EXAM: CT chest with contrast - pulmonary embolus protocol CLINICAL HISTORY: SHORTNESS OF BREATH COMPARISON: None. TECHNIQUE: CT of the chest following the administration of intravenous contrast during the pulmonary arterial phase. Axial, coronal and sagittal reformatted images were generated including MIP images. ---PQRS compliance statement - One or more of the following individualized dose reduction techniques were utilized for this study: 1. Automated exposure control 2. Adjustment of the mA and/or kV according to patient size 3. Use of iterative reconstruction technique--- FINDINGS: CHEST: Diagnostic quality: Suboptimal contrast bolus. Pulmonary emboli: No large central pulmonary emboli seen. The pulmonary artery branches are not adequately assessed. Right heart strain: None Pulmonary arteries: Normal in caliber. Heart is mildly enlarged. No pericardial effusion. Trace bilateral pleural effusion. No pneumothorax. AP window lymph node measures 3 x 1.5 cm. A few borderline enlarged mediastinal lymph nodes are seen. Linear opacities bilaterally including lower lobes, lingula and right upper lobe likely scarring/atelectasis. Small lung nodules may be obscured by motion artifact. Patchy groundglass opacities are seen. Visualized Upper abdomen: Trace infiltration about the left kidney Bones: Multilevel degenerative changes of the spine are seen. No aggressive osseous lesion. IMPRESSION: 1. Markedly suboptimal contrast bolus. No large central pulmonary emboli seen. The pulmonary artery branches are not adequately assessed. 2. Trace pleural effusions. 3. Bilateral groundglass opacities possibly infectious or inflammatory process. 4. Enlarged AP window lymph node may be reactive. Episodic disease is not excluded in the appropriate scenario. 5. Trace infiltration about the left kidney is partially visualized, possibly pyelonephritis. Electronically signed by: Mathieu Mendenhall MD (03/15/2021 5:56 AM) [facility] Course & Med Decision Making: Course & Med Decision Making Airway patent, breathing unlabored, IV access and vitals obtained nonconcerning for any emergent or surgical issues HPI, physical exam and comprehensive ER work-up concerning for fluid overload/pulmonary edema. I am concerned for cardiomyopathy, I suspect etiology to be pulmonary hypertension/sleep apnea related Patient initially 87% on room air but after repositioning in upright position while in room, this improved. Patient had several episodes of oxygen desaturations into the upper 80s with positional movement and lying flat while in room that again responded to positional changes and subsequent CPAP use I contacted hospitalist and discussed need for hospitalization for further inpatient diagnostic work-up and intervention as indicated, they agreed and accepted patient under their care. I disclosed all findings and information with patient with good understanding, all questions and concerns addressed prior to admission Antonio Disclaimer: Antonio Disclaimer: This electronic medical record was generated, in whole or in part, using a voice recognition dictation system. Departure Departure Impression: Primary Impression: Pulmonary edema Disposition: ADMITTED INPATIENT Admitting Physician: CRYSTALS (dr green) Condition: STABLE Referrals: NO PCP (PCP) Scripts Empagliflozin (Jardiance) 25 Mg Tablet 25 MG PO DAILY for DM2 for 30 Days, #30 TAB 5 Refills Prov: LYDIA AUGUST MD 03/16/21 Linagliptin (TRADJENTA) 5 Mg Tablet 5 MG PO DAILY for DM2 for 30 Days, #30 TAB 5 Refills Prov: LYDIA AUGUST MD 03/16/21 Aspirin (ASPIRIN EC) 81 Mg Tablet. 81 MG PO DAILYWBKFT for CHF for 30 Days, #30 TAB.SR 11 Refills Prov: LYDIA AUGUST MD 03/16/21 Spironolactone (ALDACTONE) 25 Mg Tablet 25 MG PO DAILY for CHF for 30 Days, #30 TAB 5 Refills Prov: LYDIA AUGUST MD 03/16/21 Losartan Potassium (LOSARTAN POTASSIUM ) 25 Mg Tablet 25 MG PO DAILY for CHF for 30 Days, #30 TAB 5 Refills Prov: LYDIA AUGUST MD 03/16/21 Metoprolol Succinate (Toprol XL) 50 Mg Tab.er.24h 50 MG PO DAILY for CHF for 30 Days, #30 TAB.SR 5 Refills Prov: LYDIA AUGUST MD 03/16/21 Nitroglycerin (NITROSTAT) 0.4 Mg Tab.subl 0.4 MG SL PRN Q5MIN PRN for CHEST PAIN for 30 Days, #9 TAB Prov: LYDIA AUGUST MD 03/16/21 Atorvastatin Calcium (ATORVASTATIN CALCIUM) 10 Mg Tablet 10 MG PO QHS for CHF for 30 Days, #30 TAB 5 Refills Prov: LYDIA AUGUST MD 03/16/21 CHESTER MENDOZA DO Mar 15, 2021 04:03
--- NOTE | 2021-03-15 04:29 | RAD ---
EXAM: AP View of the chest DATE: 03/15/2021 4:14 AM INDICATION: Reason: shob / Spl. Instructions: / History: COMPARISON: 06/10/2019 FINDINGS: Marked cardiomegaly. Bilateral interstitial prominence. Trace right pleural effusion. No pneumothorax . IMPRESSION: Cardiomegaly with interstitial prominence and trace right pleural effusion may be seen with pulmonary edema. Atypical infectious or inflammatory process may also have this appearance. Electronically signed by: Mathieu Mendenhall MD (03/15/2021 4:27 AM) ANNA
[2021-03-15 05:11] LABS: BASO # 0.1 x10^3/uL (0.0-0.2); BASO % 2 % (0-3); EOS # 0.1 x10^3/uL (0.0-0.7); EOS % 1 % (0-3); HEMATOCRIT 39.9 % (39.0-53.0); HEMOGLOBIN 12.7 g/dL (13.0-17.5); LYMPH # 2.6 x10^3/uL (1.0-4.8); LYMPH % 34 % (24-48); MEAN CORPUSCULAR HEMOGLOBIN 23 pg (25-35); MEAN CORPUSCULAR HGB CONC 32 g/dL (31-37); MEAN CORPUSCULAR VOLUME 72 fL (79-100); MONO # 0.5 x10^3/uL (0.0-1.1); MONO % 7 % (0-9); NEUT # 4.3 x10^3/uL (1.8-7.7); NEUT % 57 % (31-73); PLATELET COUNT 376 x10^3/uL (140-400); RED BLOOD COUNT 5.52 x10^6/uL (4.30-5.70); WHITE BLOOD COUNT 7.7 x10^3/uL (4.0-11.0)
--- NOTE | 2021-03-15 05:11 | EKG ---
[facility] [address] [place] [address] Test Date: 2021-03-15 Test Time: 05:01:41 Pat Name: BYRON PRADO Department: Room: Gender: M Lcac Operator: : 1980 Requested By: CHESTER MENDOZA Order Number: [id number] Reading MD: Measurements Intervals [place] Rate: 95 P: 49 SC: 166 QRS: 73 QRSD: 104 T: 39 QT: 360 QTc: 456 Interpretive Statements SINUS RHYTHM LEFT ATRIAL ABNORMALITY ABNORMAL ECG RI6.02 No previous ECG available for comparison
[2021-03-15 05:17] LABS: CALCIUM 8.9 mg/dL (8.5-10.1); CREATININE 1.2 mg/dL (0.7-1.3); GFR 81.1; POTASSIUM 3.8 mmol/L (3.5-5.1)
[2021-03-15 05:23] LABS: ALBUMIN 3.1 g/dL (3.4-5.0); ALBUMIN/GLOBULIN RATIO 0.7 (1.0-1.7); TOTAL BILIRUBIN 0.3 mg/dL (0.2-1.0); TOTAL PROTEIN 7.4 g/dL (6.4-8.2)
[2021-03-15] MEDS ORDERED: CONTRAST GIVEN. MC PRN (05:30)
[2021-03-15] MEDS ORDERED: IOHEXOL 350 MG/ML 100 ML VIAL. IV ONE (05:30)
--- NOTE | 2021-03-15 05:58 | RAD ---
EXAM: CT chest with contrast - pulmonary embolus protocol CLINICAL HISTORY: SHORTNESS OF BREATH COMPARISON: None. TECHNIQUE: CT of the chest following the administration of intravenous contrast during the pulmonary arterial phase. Axial, coronal and sagittal reformatted images were generated including MIP images. ---PQRS compliance statement - One or more of the following individualized dose reduction techniques were utilized for this study: 1. Automated exposure control 2. Adjustment of the mA and/or kV according to patient size 3. Use of iterative reconstruction technique--- FINDINGS: CHEST: Diagnostic quality: Suboptimal contrast bolus. Pulmonary emboli: No large central pulmonary emboli seen. The pulmonary artery branches are not adeq uately assessed. Right heart strain: None Pulmonary arteries: Normal in caliber. Heart is mildly enlarged. No pericardial effusion. Trace bilateral pleural effusion. No pneumothorax. AP window lymph node measures 3 x 1.5 cm. A few borderline enlarged mediastinal lymph nodes are seen. Linear opacities bilaterally including lower lobes, lingula and right upper lobe likely scarring/ate lectasis. Small lung nodules may be obscured by motion artifact. Patchy groundglass opacities are see n. Visualized Upper abdomen: Trace infiltration about the left kidney Bones: Multilevel degenerative changes of the spine are seen. No aggressive osseous lesion. IMPRESSION: 1. Markedly suboptimal contrast bolus. No large central pulmonary emboli seen. The pulmonary artery branches are not adequately assessed. 2. Trace pleural effusions. 3. Bilateral groundglass opacities possibly infectious or inflammatory process. 4. Enlarged AP window lymph node may be reactive. Episodic disease is not excluded in the appropriat e scenario. 5. Trace infiltration about the left kidney is partially visualized, possibly pyelonephritis. Electronically signed by: Mathieu Mendenhall MD (03/15/2021 5:56 AM) ANNA
[2021-03-15] MEDS ORDERED: cefTRIAXone IV Push 1 GM VIAL. IVP ONE (06:30)
[2021-03-15] MEDS ORDERED: AZITHRMYCN 500MG IVPB FOR OMNI 250 ML IV ONE (06:30)
[2021-03-15] MEDS ORDERED: ACETAMINOPHEN 325 MG TABLET. PO PRN (06:45)
[2021-03-15] MEDS ORDERED: ONDANSETRON PF 4 MG/2 ML VIAL. IVP PRN (06:45)
[2021-03-15] MEDS ORDERED: guaiFENesin DM 200MG/20MG 10 ML SYRUP PO PRN (06:45)
[2021-03-15] MEDS ORDERED: hydrALAZINE 20 MG/ML VIAL. IVP PRN (06:45)
[2021-03-15] MEDS ORDERED: NITROGLYCERIN SUBLINGUAL 0.4 MG BOTTLE OF 25. SL PRN (06:45)
--- NOTE | 2021-03-15 06:53 | PDOC1 ---
History and Physical Date of Admission Date of Admission DATE: 03/15/21 TIME: 06:44 Identification/Chief Complaint Chief Complaint Shortness of breath Source Source: Patient History of Present Illness History of Present Illness Mr Zheng is a 40-year-old male with PMHx HTN, morbid obesity, smoker who presents for shortness of breath. He is here 1 week ago for similar complaints in addition to constellation of upper respiratory and gastrointestinal symptoms that were nonconcerning for any emergent or surgical issues, he is Covid negative at that time with unremarkable work-up and discharged home. He reports improvement in URI symptoms but ongoing shortness of breath that is worse when lying flat in addition to intermittent nausea and looser stools than usual. He denies any significant cardiac history or other known medical issues, takes no medications on a daily basis. He smokes, denies alcohol or illicit drug abuse. Has no significant family medical history for early cardiac . States that he was trying to sleep this evening but was having worsening shortness of breath when lying flat and at times, woke up in a panic gasping for breath. 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 He also notes that he has been having diarrhea for a week. No liquid stools just loose bowel movements. He had a Norm & Norm vaccine against COVID-19 in September 2020 Patient with O2 saturations 87% on room air worsening O2 saturation with laying flat which improved significantly with CPAP. Afebrile, tachycardic WBC 7.7, Hb 12.7, platelets 376.41, K3.8, BUN 10, CR 1.2, glucose 1, albumin 3.1, LFTs otherwise within normal laboratory limits, troponin 0.037, NT proBNP 2774, rapid COVID-19 negative EKG appears sinus rhythm rate 35 bpm normal axis and intervals, peaking of p waves, QTC 456, no ST segment elevations or T WI Chest radiograph with cardiomegaly and interstitial prominence. Due to tachycardia shortness of breath he underwent CTPA which was negative for pulmonary embolism but revealed small lymphadenopathy and bibasilar groundglass opacities. Admitted for further care. Past Medical History Cardiovascular: HTN Past Surgical History Past Surgical History: No pertinent history Family History Family History: Coronary Artery Disease, Diabetes, High Cholestrol, Hypertension Social History Smoke: 1 pack per day ALCOHOL: none Drugs: None Current Problem List Problem List Problems Medical Problems: (1) Pulmonary edema Status: Acute Current Medications Current Medications Current Medications Iohexol (Omnipaque 350 Mg/ml) 100 ml 1X ONCE IV Last administered on 03/15/21at 05:45; Start 03/15/21 at 05:30; Stop 03/15/21 at 05:31; Status DC Info (CONTRAST GIVEN -- Rx MONITORING) 1 each PRN DAILY PRN MC SEE COMMENTS; Start 03/15/21 at 05:30; Stop 03/17/21 at 05:29 Ceftriaxone Sodium (Rocephin) 1 gm 1X ONCE IVP ; Start 03/15/21 at 06:30; Stop 03/15/21 at 06:31; Status DC Azithromycin 250 ml @ 250 mls/hr 1X ONCE IV ; Start 03/15/21 at 06:30; Stop 03/15/21 at 07:29 Active Scripts Active Ondansetron Odt (Ondansetron) 4 Mg Tab.rapdis 1 Tab PO PRN Q6-8HRS Famotidine 20 Mg Tablet 20 Mg PO BID Ciprofloxacin Hcl 500 Mg Tablet 1 Tab PO BID Metronidazole 500 Mg Tablet 1 Tab PO TID 10 Days Ondansetron Odt (Ondansetron) 4 Mg Tab.rapdis 1 Tab PO PRN Q6-8HRS Allergies Allergies: Coded Allergies: No Known Drug Allergies (Unverified , 06/10/19) ROS General: YES: Fatigue, Malaise; No: Chills, Night Sweats, Appetite, Other PSYCHOLOGICAL ROS: No: Anxiety, Behavioral Disorder, Concentration difficultie, Decreased libido, Depression, Disorientation, Hallucinations, Hostility, Irritablity, Memory difficulties, Mood Swings, Obsessive thoughts, Physical abuse, Sexual abuse, Sleep disturbances, Suicidal ideation, Other Eyes: No Blurry vision, No Decreased vision, No Double vision, No Dry eyes, No Excessive tearing, No Eye Pain, No Itchy Eyes, No Loss of vision, No Ph otophobia, No Scotomata, No Uses contacts, No Uses glasses, No Other HEENT: No: Heacaches, Visual Changes, Hearing change, Nasal congestion, Nasal discharge, Oral lesions, Sinus pain, Sore Throat, Epistaxis, Sneezing, Snoring, Tinnitus, Vertigo, Vocal changes, Other ALLERGY AND IMMUNOLOGY: No: Hives, Insect Bite Sensitivity, Itchy/Watery Eyes, Nasal Congestion, Post Nasal Drip, Seasonal Allergies, Other Hematological and Lymphatic: No: Bleeding Problems, Blood Clots, Blood Transfusions, Brusing, Night Sweats, Pallor, Swollen Lymph Nodes, Other ENDOCRINE: No: Breast Changes, Galactorrhea, Hair Pattern Changes, Hot Flashes, Malaise/lethargy, Mood Swings, Palpitations, Polydipsia/polyuria, Skin Changes, Temperature Intolerance, Unexpected Weight Changes, Other Breast: No New/Changing Breast Lumps, No Nipple changes, No Nipple discharge, No Other Respiratory: YES: Shortness of breath, SOB with excertion; No: Cough, Hemoptysis, Orthopnea, Pleuritic Pain, Sputum Changes, Stridor, Tachypnea, Wheezing, Other Cardiovascular: yes Orthopnea, yes Paroxysmal Noc. Dyspnea, yes Edema; No Chest Pain, No Palpitations, No Lt Headedness, No Other Gastrointestinal: Yes Diarrhea; No Nausea, No Vomiting, No Abdominal Pain, No Constipation, No Melena, No Hematochezia, No Other Genitourinary: No Dysuria, No Frequency, No Incontinence, No Hematuria, No Retention, No Discharge, No Urgency, No Pain, No Flank Pain, No Other, No , No , No , No , No , No , No Musculoskeletal: No Gait Disturbance, No Joint Pain, No Joint Stiffness, No Joint Swelling, No Muscle Pain, No Muscular Weakness, No Pain In:, No Swelling In:, No Other Neurological: No Behavorial Changes, No Bowel/Bladder ControlChng, No Confusion, No Dizziness, No Gait Disturbance, No Headaches, No Impaired Coord/balance, No Memory Loss, No Numbness/Tingling, No Seizures, No Speech Problems, No Tremors, No Visual Changes, No Weakness, No Other Skin: No Dry Skin, No Eczema, No Hair Changes, No Lumps, No Mole Changes, No Mottling, No Nail Changes, No Pruritus, No Rash, No Skin Lesion Changes, No Other, No Acne Physical Exam General: Alert, Oriented X3, Cooperative, moderate distress HEENT: Atraumatic, PERRLA, EOMI, Mucous membr. moist/pink Lungs: Normal air movement, Other (bibasilar crackles) Heart: S1S2, RRR, no thrills, no rubs, no gallops, no murmurs Abdomen: Normal bowel sounds, Soft, No tenderness, No hepatosplenomegaly, No masses Rectal Exam: not examined Extremities: No clubbing, No cyanosis, Normal pulses, No tenderness/swelling, Other (2+ edema to mid mcdonough) Skin: No rashes, No breakdown, No significant lesion Neuro: Normal gait, Normal speech, Strength at 5/5 X4 ext, Normal tone, Sensation intact, Cranial nerves 3-12 NL, Reflexes 2+ Psych/Mental Status: Mental status NL, Mood NL Vitals Vitals Vital Signs Date Time Temp Pulse Resp B/P (MAP) Pulse Ox O2 Delivery O2 Flow Rate FiO2 03/15/21 05:10 94 BiPAP/CPAP 03/15/21 03:57 100 35 139/99 (112) 03/15/21 03:30 98.7 98.7 Labs Labs Laboratory Tests Test 03/15/21 04:05 03/15/21 04:50 SARS-CoV-2 Antigen (Rapid) Negative (NEGATIVE) White Blood Count 7.7 x10^3/uL (4.0-11.0) Red Blood Count 5.52 x10^6/uL (4.30-5.70) Hemoglobin 12.7 g/dL (13.0-17.5) Hematocrit 39.9 % (39.0-53.0) Mean Corpuscular Volume 72 fL (79-100) Mean Corpuscular Hemoglobin 23 pg (25-35) Mean Corpuscular Hemoglobin Concent 32 g/dL (31-37) Red Cell Distribution Width 15.0 % (11.5-14.5) Platelet Count 376 x10^3/uL (140-400) Neutrophils (%) (Auto) 57 % (31-73) Lymphocytes (%) (Auto) 34 % (24-48) Monocytes (%) (Auto) 7 % (0-9) Eosinophils (%) (Auto) 1 % (0-3) Basophils (%) (Auto) 2 % (0-3) Neutrophils # (Auto) 4.3 x10^3/uL (1.8-7.7) Lymphocytes # (Auto) 2.6 x10^3/uL (1.0-4.8) Monocytes # (Auto) 0.5 x10^3/uL (0.0-1.1) Eosinophils # (Auto) 0.1 x10^3/uL (0.0-0.7) Basophils # (Auto) 0.1 x10^3/uL (0.0-0.2) Sodium Level 141 mmol/L (136-145) Potassium Level 3.8 mmol/L (3.5-5.1) Chloride Level 105 mmol/L (98-107) Carbon Dioxide Level 26 mmol/L (21-32) Anion Gap 10 (6-14) Blood Urea Nitrogen 10 mg/dL (8-26) Creatinine 1.2 mg/dL (0.7-1.3) Estimated GFR (Cockcroft-Gault) 81.1 BUN/Creatinine Ratio 8 (6-20) Glucose Level 110 mg/dL (70-99) Calcium Level 8.9 mg/dL (8.5-10.1) Total Bilirubin 0.3 mg/dL (0.2-1.0) Aspartate Amino Transf (AST/SGOT) 12 U/L (15-37) Alanine Aminotransferase (ALT/SGPT) 25 U/L (16-63) Alkaline Phosphatase 47 U/L (46-116) Troponin I Quantitative 0.037 ng/mL (0.000-0.055) UY-Knl-W-Type Natriuretic Peptide 2774 pg/mL (0-124) Total Protein 7.4 g/dL (6.4-8.2) Albumin 3.1 g/dL (3.4-5.0) Albumin/Globulin Ratio 0.7 (1.0-1.7) Laboratory Tests Test 03/15/21 04:05 03/15/21 04:50 SARS-CoV-2 Antigen (Rapid) Negative (NEGATIVE) White Blood Count 7.7 x10^3/uL (4.0-11.0) Red Blood Count 5.52 x10^6/uL (4.30-5.70) Hemoglobin 12.7 g/dL (13.0-17.5) Hematocrit 39.9 % (39.0-53.0) Mean Corpuscular Volume 72 fL (79-100) Mean Corpuscular Hemoglobin 23 pg (25-35) Mean Corpuscular Hemoglobin Concent 32 g/dL (31-37) Red Cell Distribution Width 15.0 % (11.5-14.5) Platelet Count 376 x10^3/uL (140-400) Neutrophils (%) (Auto) 57 % (31-73) Lymphocytes (%) (Auto) 34 % (24-48) Monocytes (%) (Auto) 7 % (0-9) Eosinophils (%) (Auto) 1 % (0-3) Basophils (%) (Auto) 2 % (0-3) Neutrophils # (Auto) 4.3 x10^3/uL (1.8-7.7) Lymphocytes # (Auto) 2.6 x10^3/uL (1.0-4.8) Monocytes # (Auto) 0.5 x10^3/uL (0.0-1.1) Eosinophils # (Auto) 0.1 x10^3/uL (0.0-0.7) Basophils # (Auto) 0.1 x10^3/uL (0.0-0.2) Sodium Level 141 mmol/L (136-145) Potassium Level 3.8 mmol/L (3.5-5.1) Chloride Level 105 mmol/L (98-107) Carbon Dioxide Level 26 mmol/L (21-32) Anion Gap 10 (6-14) Blood Urea Nitrogen 10 mg/dL (8-26) Creatinine 1.2 mg/dL (0.7-1.3) Estimated GFR (Cockcroft-Gault) 81.1 BUN/Creatinine Ratio 8 (6-20) Glucose Level 110 mg/dL (70-99) Calcium Level 8.9 mg/dL (8.5-10.1) Total Bilirubin 0.3 mg/dL (0.2-1.0) Aspartate Amino Transf (AST/SGOT) 12 U/L (15-37) Alanine Aminotransferase (ALT/SGPT) 25 U/L (16-63) Alkaline Phosphatase 47 U/L (46-116) Troponin I Quantitative 0.037 ng/mL (0.000-0.055) DT-Xdw-K-Type Natriuretic Peptide 2774 pg/mL (0-124) Total Protein 7.4 g/dL (6.4-8.2) Albumin 3.1 g/dL (3.4-5.0) Albumin/Globulin Ratio 0.7 (1.0-1.7) Images Images Chest radiograph: Marked cardiomegaly. Bilateral interstitial prominence. Trace right pleural effu rodney. No pneumothorax. IMPRESSION: Cardiomegaly with interstitial prominence and trace right pleural effusion may be seen with pulmonary edema. Atypical infectious or inflammatory process may also have this appearance. CTPA: CHEST: Diagnostic quality: Suboptimal contrast bolus. Pulmonary emboli: No large central pulmonary emboli seen. The pulmonary artery branches are not adequately assessed. Right heart strain: None Pulmonary arteries: Normal in caliber. Heart is mildly enlarged. No pericardial effusion. Trace bilateral pleural effusion. No pneumothorax. AP window lymph node measures 3 x 1.5 cm. A few borderline enlarged mediastinal lymph nodes are seen. Linear opacities bilaterally including lower lobes, lingula and right upper lobe likely scarring/atelectasis. Small lung nodules may be obscured by motion artifact. Patchy groundglass opacities are seen. Visualized Upper abdomen: Trace infiltration about the left kidney Bones: Multilevel degenerative changes of the spine are seen. No aggressive osseous lesion. IMPRESSION: 1. Markedly suboptimal contrast bolus. No large central pulmonary emboli seen. The pulmonary artery branches are not adequately assessed. 2. Trace pleural effusions. 3. Bilateral groundglass opacities possibly infectious or inflammatory process. 4. Enlarged AP window lymph node may be reactive. Episodic disease is not excluded in the appropriate scenario. 5. Trace infiltration about the left kidney is partially visualized, possibly pyelonephritis. VTE Prophylaxis Ordered VTE Prophylaxis Devices: No VTE Pharmacological Prophylaxi: Yes Assessment/Plan Assessment/Plan A/P: Shortness of breath - with CHF symptoms. Will diurese. Smoking cessation 6 minutes Acute diastolic CHF - IV lasix BID. Consult cardiology. Will get on BB prior to d/c. statin, ASA. Will needs outpatient ischemic w/u, echo, and daily weight, I/O Hypertension - needs treatment Tobaccoism - counseled on cessation Morbid obesity - counseled on lifestyle modification Diarrhea - will r/o COVID 19, likely his loose stools are related to abdominal swelling from acute CHF FEN - Cardiac diet PPX - lovenox FULL CODE Dispo - inpatient for acute CHF Justifications for Admission Other Justification LYDIA AUGSUT MD Mar 15, 2021 06:53
[2021-03-15] MEDS ORDERED: FUROSEMIDE 40 MG/4 ML VIAL. IVP ONE ×2 (09:00→14:30)
[2021-03-15] MEDS ORDERED: LOPERAMIDE 2 MG CAPSULE PO PRN (09:00)
--- NOTE | 2021-03-15 11:40 | PDOC2 ---
JULIO CESAR RED SKI PATROL DIRECTOR 03/15/21 1140: CARDIAC CONSULT DATE OF CONSULT Date of Consult DATE: 03/15/21 TIME: 11:34 REASON FOR CONSULT Reason for Consult: CHF REFERRING PHYSICIAN Referring Physician: Dr. Thomas SOURCE Source: Chart review, Patient HISTORY OF PRESENT ILLNESS HISTORY OF PRESENT ILLNESS This is a 40 yo male who presented secondary to shortness of breath. Was seen in ED last week for SOA and URI symptoms. Was COVID negative at that time. Reports improvement in URI symptoms but has had progressive shortness of breath that is now associated with orthopnea. Associated with mild LE edema. NT Pro BNP elevated and CXR with evidence of pulmonary edema, which prompted this consult. He denies any chest pain, palpitations, dizziness, diaphoresis, or nausea/vomiting. No fevers or sick contacts. Is feeling better s/p IV diuresis. PAST MEDICAL HISTORY Cardiovascular: HTN Pulmonary: No pertinent hx GI: No pertinent hx Endocrine: Other (obesity ) PAST SURGICAL HISTORY Past Surgical History: No pertinent history FAMILY HISTORY Family History: Diabetes, Heart Disease, Hypertension SOCIAL HISTORY Smoke: 1 pack per day ALCOHOL: none Drugs: None CURRENT MEDICATIONS CURRENT MEDICATIONS Current Medications Medications (Trade) Dose Ordered Sig/Marybeth Route PRN Reason Start Time Stop Time Status Last Admin Dose Admin Iohexol (Omnipaque 350 Mg/ml) 100 ml 1X ONCE IV 03/15/21 05:30 03/15/21 05:31 DC 03/15/21 05:45 Ceftriaxone Sodium (Rocephin) 1 gm 1X ONCE IVP 03/15/21 06:30 03/15/21 06:31 DC 03/15/21 07:54 Azithromycin 250 ml @ 250 mls/hr 1X ONCE IV 03/15/21 06:30 03/15/21 07:29 DC 03/15/21 08:50 Furosemide (Lasix) 40 mg 1X ONCE IVP 03/15/21 09:00 03/15/21 09:07 DC 03/15/21 10:05 ALLERGIES ALLERGIES: Coded Allergies: No Known Drug Allergies (Unverified , 06/10/19) ROS Review of System 14 point ROS conducted with pertinent positives noted above in HPI PHYSICAL EXAM General: Alert, Oriented X3, Cooperative, No acute distress HEENT: Atraumatic Lungs: Other (diminished bases) Heart: Regular rate (SR/ST) Abdomen: Soft, Other (obese) Extremities: Other (1+ bilateral LE edema ) Skin: No significant lesion Neuro: Normal speech, Sensation intact Psych/Mental Status: Mental status NL, Mood NL MUSCULOSKELETAL: No deformity VITALS/I&O VITALS/I&O: Vital Signs Date Time Temp Pulse Resp B/P (MAP) Pulse Ox O2 Delivery O2 Flow Rate FiO2 03/15/21 10:43 97 Room Air 03/15/21 10:05 98 29 157/97 (117) 03/15/21 03:30 98.7 98.7 LABS Lab: Laboratory Tests Test 03/15/21 04:05 03/15/21 04:50 SARS-CoV-2 Antigen (Rapid) Negative (NEGATIVE) White Blood Count 7.7 x10^3/uL (4.0-11.0) Red Blood Count 5.52 x10^6/uL (4.30-5.70) Hemoglobin 12.7 g/dL (13.0-17.5) L Hematocrit 39.9 % (39.0-53.0) Mean Corpuscular Volume 72 fL (79-100) L Mean Corpuscular Hemoglobin 23 pg (25-35) L Mean Corpuscular Hemoglobin Concent 32 g/dL (31-37) Red Cell Distribution Width 15.0 % (11.5-14.5) H Platelet Count 376 x10^3/uL (140-400) Neutrophils (%) (Auto) 57 % (31-73) Lymphocytes (%) (Auto) 34 % (24-48) Monocytes (%) (Auto) 7 % (0-9) Eosinophils (%) (Auto) 1 % (0-3) Basophils (%) (Auto) 2 % (0-3) Neutrophils # (Auto) 4.3 x10^3/uL (1.8-7.7) Lymphocytes # (Auto) 2.6 x10^3/uL (1.0-4.8) Monocytes # (Auto) 0.5 x10^3/uL (0.0-1.1) Eosinophils # (Auto) 0.1 x10^3/uL (0.0-0.7) Basophils # (Auto) 0.1 x10^3/uL (0.0-0.2) Sodium Level 141 mmol/L (136-145) Potassium Level 3.8 mmol/L (3.5-5.1) Chloride Level 105 mmol/L (98-107) Carbon Dioxide Level 26 mmol/L (21-32) Anion Gap 10 (6-14) Blood Urea Nitrogen 10 mg/dL (8-26) Creatinine 1.2 mg/dL (0.7-1.3) Estimated GFR (Cockcroft-Gault) 81.1 BUN/Creatinine Ratio 8 (6-20) Glucose Level 110 mg/dL (70-99) H Calcium Level 8.9 mg/dL (8.5-10.1) Total Bilirubin 0.3 mg/dL (0.2-1.0) Aspartate Amino Transferase (AST) 12 U/L (15-37) L Alanine Aminotransferase (ALT) 25 U/L (16-63) Alkaline Phosphatase 47 U/L (46-116) Troponin I Quantitative 0.037 ng/mL (0.000-0.055) KB-Mid-S-Type Natriuretic Peptide 2774 pg/mL (0-124) H Total Protein 7.4 g/dL (6.4-8.2) Albumin 3.1 g/dL (3.4-5.0) L Albumin/Globulin Ratio 0.7 (1.0-1.7) L Procalcitonin < 0.10 ng/mL (0.00-0.10) Laboratory Tests 03/15/21 04:50 Laboratory Tests 03/15/21 04:50 ASSESSMENT/PLAN ASSESSMENT/PLAN 1. Acute respiratory failure with CHF 2. Acute probable diastolic CHF; improved s/p IV diuresis 3. Hypertension; untreated 4. Tobaccoism; discussed/encouraged cessation Recommendations Mild diuresis with electrolyte replacement Echo to assess LV systolic function if COVID antigen is negative TSH, lipids Discussed dietary Na restriction Start amlodipine for BP control ELIZABETH STOVALL MD 03/16/21 0929: CARDIAC CONSULT ASSESSMENT/PLAN ASSESSMENT/PLAN Patient seen and examined 03/15/2021. Agree with BELLHOP's assessment and plan. Continue diuresis for acute on chronic probably diastolic heart failure Covid test pending Agree with 2D echo to assess LV function if Covid test comes back negative Start amlodipine for better blood pressure control Thank you for your consultation JULIO CESAR RED APRN Mar 15, 2021 11:40 ELIZABTEH STOVALL MD Mar 16, 2021 09:29
[2021-03-15] MEDS ORDERED: POTASSIUM CHLORIDE 20 MEQ TABLET.ER. PO ONE (14:30)
[2021-03-15 15:00] VITALS: BP 148/97
[2021-03-15 15:01] LABS: CHOLESTEROL/HDL RATIO 6.2
[2021-03-15] MEDS: PANTOPRAZOLE 40 MG TABLET.DR. PO SCH (16:49)
[2021-03-15 19:25] VITALS: BP 145/94
[2021-03-15 23:00] VITALS: BP 171/102
[2021-03-16 00:11] LABS: HEMOGLOBIN A1C 6.5 % (4.8-5.6)
--- NOTE | 2021-03-16 01:30 | NUR ---
UPON CHECKING PT'S CPAP, PT WAS NOTED TO HAVE LONG PERIODS OF APNEA WITHOUT VISIBLE ATTEMPT TO TAKE A BREATH. THEN PT STARTED AGAIN, LARGE BREATHS AND TACHYPNEA. BREATHING PATTERN IS QUITE IRREGULAR. PT MACHINE SETTINGS CHANGED FROM CPAP 12 TO BIPAP 18/10 RATE 18 25%. BREATHING PATTERN REMAINS IRREGULAR, WAXING AND WANING PERIODICALLY, MINUTE VENTILATION IS MAINTAINED BETTER ON BIPAP SETTINGS.
[2021-03-16 03:00] VITALS: BP 126/81
[2021-03-16 04:08] LABS: BASO # 0.1 x10^3/uL (0.0-0.2); BASO % 1 % (0-3); EOS # 0.1 x10^3/uL (0.0-0.7); EOS % 2 % (0-3); HEMATOCRIT 40.9 % (39.0-53.0); HEMOGLOBIN 13.2 g/dL (13.0-17.5); LYMPH # 3.2 x10^3/uL (1.0-4.8); LYMPH % 39 % (24-48); MEAN CORPUSCULAR HEMOGLOBIN 24 pg (25-35); MEAN CORPUSCULAR HGB CONC 32 g/dL (31-37); MEAN CORPUSCULAR VOLUME 73 fL (79-100); MONO # 0.7 x10^3/uL (0.0-1.1); MONO % 8 % (0-9); NEUT % 50 % (31-73); PLATELET COUNT 378 x10^3/uL (140-400); RED BLOOD COUNT 5.57 x10^6/uL (4.30-5.70); RED CELL DISTRIBUTION WIDTH 14.6 % (11.5-14.5); WHITE BLOOD COUNT 8.1 x10^3/uL (4.0-11.0)
[2021-03-16 04:29] LABS: CALCIUM 8.8 mg/dL (8.5-10.1); CREATININE 1.3 mg/dL (0.7-1.3); POTASSIUM 3.6 mmol/L (3.5-5.1)
[2021-03-16 07:00] VITALS: BP 172/97
[2021-03-16] MEDS ORDERED: FLU VACC QUAD 21-22 (6MOS+) PF 0.5 ML SYRINGE. VAX IM ONE (09:00)
[2021-03-16] MEDS: PANTOPRAZOLE 40 MG TABLET.DR. PO SCH (09:23)
--- NOTE | 2021-03-16 09:49 | PDOC ---
JULIO CESAR RED PHARMACY ASSISTANT 03/16/21 0949: CARDIO Progress Notes Date and Time Date of Service 03/16/21 Time of Evaluation 1140 Subjective Subjective: No Chest Pain, No shortness of breath, No Palpitations Vitals Vitals Vital Signs Date Time Temp Pulse Resp B/P (MAP) Pulse Ox O2 Delivery O2 Flow Rate FiO2 03/16/21 09:23 108 172/97 03/16/21 07:00 98.6 18 95 Room Air 98.6 Weight Weight [ ] Input and Output Intake and Output Intake and Output 03/16/21 07:00 Intake Total 2630 ml Output Total 2700 ml Balance -70 ml Intake Oral 2380 ml IV Total 250 ml Output Urine Total 2700 ml Laboratory Labs Laboratory Tests Test 03/15/21 12:00 03/15/21 18:30 03/16/21 03:20 Troponin I Quantitative 0.027 ng/mL (0.000-0.055) 0.026 ng/mL (0.000-0.055) Iron Level 41 ug/dL (65-175) Total Iron Binding Capacity 262 ug/dL (250-450) Iron Saturation 16 % (15-34) White Blood Count 8.1 x10^3/uL (4.0-11.0) Red Blood Count 5.57 x10^6/uL (4.30-5.70) Hemoglobin 13.2 g/dL (13.0-17.5) Hematocrit 40.9 % (39.0-53.0) Mean Corpuscular Volume 73 fL (79-100) Mean Corpuscular Hemoglobin 24 pg (25-35) Mean Corpuscular Hemoglobin Concent 32 g/dL (31-37) Red Cell Distribution Width 14.6 % (11.5-14.5) Platelet Count 378 x10^3/uL (140-400) Neutrophils (%) (Auto) 50 % (31-73) Lymphocytes (%) (Auto) 39 % (24-48) Monocytes (%) (Auto) 8 % (0-9) Eosinophils (%) (Auto) 2 % (0-3) Basophils (%) (Auto) 1 % (0-3) Neutrophils # (Auto) 4.0 x10^3/uL (1.8-7.7) Lymphocytes # (Auto) 3.2 x10^3/uL (1.0-4.8) Monocytes # (Auto) 0.7 x10^3/uL (0.0-1.1) Eosinophils # (Auto) 0.1 x10^3/uL (0.0-0.7) Basophils # (Auto) 0.1 x10^3/uL (0.0-0.2) Sodium Level 138 mmol/L (136-145) Potassium Level 3.6 mmol/L (3.5-5.1) Chloride Level 103 mmol/L (98-107) Carbon Dioxide Level 26 mmol/L (21-32) Anion Gap 9 (6-14) Blood Urea Nitrogen 12 mg/dL (8-26) Creatinine 1.3 mg/dL (0.7-1.3) Estimated GFR (Cockcroft-Gault) 74.0 Glucose Level 115 mg/dL (70-99) Calcium Level 8.8 mg/dL (8.5-10.1) Magnesium Level 1.9 mg/dL (1.8-2.4) Physical Exam HEENT: Neck Supple W Full Motion Chest: Symmetric LUNGS: Other (diminished bases ) Heart: S1S2, RRR Abdomen: Soft N/T, Other (obese) Extremities: No Edema Neurology: alert, oriented, follow commands Assessment Assessment 1. Acute respiratory failure with CHF 2. Acute systolic CHF; improved s/p IV diuresis 3. Cardiomyopathy; Echo with LVEF 25%. 3. Hypertension; untreated 4. Tobaccoism; discussed/encouraged cessation Recommendations Add Toprol, losartan, Aldactone for HF optimization Discussed dietary Na restriction and 2000cc FR Daily weights Will need outpatient ischemic evaluation Follow up in our office with Dr. Dia as scheduled Reassess LV systolic function in 3 months to assess need for AICD Justicifation of Admission Dx: Justifications for Admission: Justification of Admission Dx: Yes Comments: Acute systolic CHF Cardiomyopathy ELIZABETH DIA MD 03/16/212101: CARDIO Progress Notes Assessment Assessment Patient seen and examined. Agree with PATROL COMMUN[employer] SERVICE OFFICER's assessment and plan. Continue diuresis for acute on chronic probably diastolic heart failure 2D echo showed EF 25% Plan ischemic evaluation possibly with cardiac cath as outpatient JULIO CESAR RED APRN Mar 16, 2021 09:49 ELIZABETH DIA MD Mar 16, 2021 21:02
--- NOTE | 2021-03-16 10:31 | CARD ---
MR#: [id number] Date of Study: 03/15/2021 Ordering Physician: JULIO CESAR RED, Referring Physician: JULIO CESAR RED, Tech: Imelda Lentz, [facility] APPROVED REPORT EXAM: Two-dimensional and M-mode echocardiogram with Doppler and color Doppler. Other Information Quality : AverageHR: 100bpm INDICATION Congestive Heart Failure RISK FACTORS Hypertension Smoking 2D DIMENSIONS Left Atrium(2D)4.0 (1.6-4.0cm)IVSd1.1 (0.7-1.1cm) Aortic Root(2D)3.8 (2.0-3.7cm)LVDd7.7 (3.9-5.9cm) LVOT Diameter2.5 (1.8-2.4cm)PWd1.5 (0.7-1.1cm) LVDs6.7 (2.5-4.0cm)FS (%) 15.2 % SV103.8 ml Aortic Valve AoV Peak Hieu.96.5cm/sAoV VTI16.0cm AO Peak GR.3.7mmHgLVOT VTI 11.61cm AO Mean GR.3mmHg Mitral Valve MV E Pnkmttex19.0cm/sMV E Peak Gr.3mmHg MV DECEL [id number] A Ohhscvbu62.9cm/s MV E Mean Gr.2mmHgE/A Ratio1.2 TDI Lateral E' P. V5.53cm/sMedial E' P. V3.73cm/s E/Lateral E'15.4E/Medial E'22.8 Tricuspid Valve TR P. [id number]/sRAP [id number] TR Peak Gr.[id number] LEFT VENTRICLE The Left Ventricle is moderately to severely dilated. There is mild concentric left ventricular hyper trophy. The systolic function is severely impaired. The Ejection Fraction is estimated at 25%. There is severe global hypokinesis of the left ventricle. Tissue Doppler imaging reveals moderate left vent ricular diastolic dysfunction. ATRIA The left atrium is mildly dilated. The right atrium is mildly dilated. AORTIC VALVE The aortic valve is normal in structure and function. Doppler and Color Flow revealed trace aortic re gurgitation. There is no significant aortic valvular stenosis. Calculated aortic valve area is 3.36 c m2 with maximum pressure gradient of 4 mmHg and mean pressure gradient of 3 mmHg. MITRAL VALVE The mitral valve is normal in structure and function. There is no evidence of mitral valve prolapse. There is no mitral valve stenosis. Doppler and Color-flow revealed trace to mild mitral regurgitation . TRICUSPID VALVE The tricuspid valve is normal in structure and function. Doppler and Color Flow revealed trace tricus pid regurgitation with an estimated PAP of 31 mmHg. There is no tricuspid valve stenosis. PULMONIC VALVE The pulmonary valve is normal in structure and function. Doppler and Color Flow revealed trace pulmon ic valvular regurgitation. GREAT VESSELS The aortic root is normal in size. The IVC is normal in size and collapses >50% with inspiration. PERICARDIAL EFFUSION There is no evidence of significant pericardial effusion. Critical Notification Critical Value: No <Conclusion> The Left Ventricle is moderately to severely dilated. The systolic function is severely impaired. The Ejection Fraction is estimated at 25%. There is severe global hypokinesis of the left ventricle. There is mild concentric left ventricular hypertrophy. Doppler and Color Flow revealed trace aortic regurgitation. There is no significant aortic valvular stenosis. Doppler and Color-flow revealed trace to mild mitral regurgitation. Doppler and Color Flow revealed trace tricuspid regurgitation with an estimated PAP of 31 mmHg. Signed by : Derek Álvarez MD Electronically Approved : 03/16/2021 10:31:08
[2021-03-16 10:44] VITALS: BP 143/96
--- NOTE | 2021-03-16 11:58 | PDOC ---
[employer] PROGRESS NOTE Date of Service DOS: DATE: 03/16/21 TIME: 11:55 Chief Complaint Chief Complaint A/P: Shortness of breath - with CHF symptoms. Will dikikoe. Smoking cessation 6 minutes Acute systolic and diastolic CHF - IV lasix improved. Consult cardiology. Will get on BB prior to d/c. statin, ASA. Will needs outpatient ischemic w/u, daily weight, I/O. EF 25% Hypertension - needs treatment Tobaccoism - counseled on cessation Morbid obesity - counseled on lifestyle modification Diarrhea - will r/o COVID 19, likely his loose stools are related to abdominal swelling from acute CHF Presumptive PRAVEEN - improved with BIPAP Hyperglycemia - A1c returned 6.5 consistent with newly diagnosed DM2. Will start tradjenta, would benefit from jardiance given his CHF. FEN - Cardiac diet PPX - lovenox FULL CODE Dispo - inpatient for acute CHF History of Present Illness History of Present Illness Mr Zheng is a 40-year-old male with PMHx HTN, morbid obesity, smoker who presents for shortness of breath. He is here 1 week ago for similar complaints in addition to constellation of upper respiratory and gastrointestinal symptoms that were nonconcerning for any emergent or surgical issues, he is Covid negative at that time with unremarkable work-up and discharged home. He reports improvement in URI symptoms but ongoing shortness of breath that is worse when lying flat in addition to intermittent nausea and looser stools than usual. He denies any significant cardiac history or other known medical issues, takes no medications on a daily basis. He smokes, denies alcohol or illicit drug abuse. Has no significant family medical history for early cardiac . States that he was trying to sleep this evening but was having worsening shortness of breath when lying flat and at times, woke up in a panic gasping for breath. 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 He also notes that he has been having diarrhea for a week. No liquid stools just loose bowel movements. He had a Norm & Norm vaccine against COVID-19 in September 2020 Patient with O2 saturations 87% on room air worsening O2 saturation with laying flat which improved significantly with CPAP. Afebrile, tachycardic WBC 7.7, Hb 12.7, platelets 376.41, K3.8, BUN 10, CR 1.2, glucose 1, albumin 3.1, LFTs otherwise within normal laboratory limits, troponin 0.037, NT proBNP 2774, rapid COVID-19 negative EKG appears sinus rhythm rate 35 bpm normal axis and intervals, peaking of p waves, QTC 456, no ST segment elevations or T WI Chest radiograph with cardiomegaly and interstitial prominence. Due to tachycardia shortness of breath he underwent CTPA which was negative for pulmonary embolism but revealed small lymphadenopathy and bibasilar groundglass opacities. Admitted for further care. He was short of breath requiring BiPAP overnight with improvement. IV Lasix did improve his breath and swelling. Echocardiogram revealed EF 25% global hypokinesis. Vitals/I&O Vitals/I&O: Vital Signs Date Time Temp Pulse Resp B/P (MAP) Pulse Ox O2 Delivery O2 Flow Rate FiO2 03/16/21 10:44 98.8 100 18 143/96 (112) 95 Room Air 98.8 I & O 03/15/21 03/15/21 03/16/21 15:00 23:00 07:00 Intake Total 250 ml 980 ml 1400 ml Output Total 1100 ml 1200 ml 400 ml Balance -850 ml -220 ml 1000 ml Physical Exam General: Alert, Oriented X3, Cooperative, moderate distress Heart: Regular rate (SR/ST) Abdomen: Normal bowel sounds, Soft, No tenderness, No hepatosplenomegaly, No masses Extremities: No clubbing, No cyanosis, Normal pulses, No tenderness/swelling, Other (2+ edema to mid mcdonough) Skin: No rashes, No breakdown, No significant lesion Labs Labs: Laboratory Tests Test 03/15/21 12:00 03/15/21 18:30 03/16/21 03:20 Troponin I Quantitative 0.027 ng/mL (0.000-0.055) 0.026 ng/mL (0.000-0.055) Iron Level 41 ug/dL (65-175) Total Iron Binding Capacity 262 ug/dL (250-450) Iron Saturation 16 % (15-34) White Blood Count 8.1 x10^3/uL (4.0-11.0) Red Blood Count 5.57 x10^6/uL (4.30-5.70) Hemoglobin 13.2 g/dL (13.0-17.5) Hematocrit 40.9 % (39.0-53.0) Mean Corpuscular Volume 73 fL (79-100) Mean Corpuscular Hemoglobin 24 pg (25-35) Mean Corpuscular Hemoglobin Concent 32 g/dL (31-37) Red Cell Distribution Width 14.6 % (11.5-14.5) Platelet Count 378 x10^3/uL (140-400) Neutrophils (%) (Auto) 50 % (31-73) Lymphocytes (%) (Auto) 39 % (24-48) Monocytes (%) (Auto) 8 % (0-9) Eosinophils (%) (Auto) 2 % (0-3) Basophils (%) (Auto) 1 % (0-3) Neutrophils # (Auto) 4.0 x10^3/uL (1.8-7.7) Lymphocytes # (Auto) 3.2 x10^3/uL (1.0-4.8) Monocytes # (Auto) 0.7 x10^3/uL (0.0-1.1) Eosinophils # (Auto) 0.1 x10^3/uL (0.0-0.7) Basophils # (Auto) 0.1 x10^3/uL (0.0-0.2) Sodium Level 138 mmol/L (136-145) Potassium Level 3.6 mmol/L (3.5-5.1) Chloride Level 103 mmol/L (98-107) Carbon Dioxide Level 26 mmol/L (21-32) Anion Gap 9 (6-14) Blood Urea Nitrogen 12 mg/dL (8-26) Creatinine 1.3 mg/dL (0.7-1.3) Estimated GFR (Cockcroft-Gault) 74.0 Glucose Level 115 mg/dL (70-99) Calcium Level 8.8 mg/dL (8.5-10.1) Magnesium Level 1.9 mg/dL (1.8-2.4) Assessment and Plan Assessmemt and Plan Problems Medical Problems: (1) Pulmonary edema Status: Acute Comment Review of Relevant I have reviewed the following items jimmy (where applicable) has been applied. Medications: Current Medications Medications (Trade) Dose Ordered Sig/Marybeth Route PRN Reason Start Time Stop Time Status Last Admin Dose Admin Furosemide (Lasix) 40 mg 1X ONCE IVP 03/15/21 14:30 9/28/21 14:31 DC 03/15/21 16:48 Potassium Chloride (Klor-Con) 40 meq 1X ONCE PO 03/15/21 14:30 03/15/21 14:31 DC 03/15/21 16:49 Amlodipine Besylate (Norvasc) 5 mg DAILY PO 03/16/21 09:00 03/16/21 09:23 Pantoprazole Sodium (Protonix) 40 mg DAILYAC PO 03/15/21 16:30 03/16/21 09:23 Images: Echo: The Left Ventricle is moderately to severely dilated. The systolic function is severely impaired. The Ejection Fraction is estimated at 25%. There is severe global hypokinesis of the left ventricle. There is mild concentric left ventricular hypertrophy. Doppler and Color Flow revealed trace aortic regurgitation. There is no significant aortic valvular stenosis. Doppler and Color-flow revealed trace to mild mitral regurgitation. Doppler and Color Flow revealed trace tricuspid regurgitation with an estimated PAP of 31 mmHg. Justifications for Admission Other Justification LYDIA AUGUST MD Mar 16, 2021 11:58
[2021-03-16] MEDS ORDERED: DEXTROSE 50% 25 GM / 50ML DISP.SYRIN. IV PRN (12:00)
[2021-03-16] MEDS ORDERED: ASPIRIN ENTERIC COATED 325 MG TABLET.DR. PO ONE (12:00)
[2021-03-16] MEDS ORDERED: MAGNESIUM OXIDE 400 MG TABLET PO ONE (12:00)
[2021-03-16] MEDS ORDERED: LOSARTAN POTASSIUM 25 MG TABLET. PO SCH (12:00)
[2021-03-16] MEDS ORDERED: POTASSIUM CHLORIDE 10 MEQ TABLET.ER. PO ONE (12:00)
[2021-03-16] MEDS ORDERED: LINAGLIPTIN 5 MG TABLET PO SCH (12:00)
[2021-03-16] MEDS: INSULIN LISPRO 300 UNITS/3 ML VIAL. SQ SCH ×2 (12:00→16:46)
--- NOTE | 2021-03-16 14:53 | NUR ---
SS following for discharge planning. SS reviewed pt chart and discussed with pt RN. Pt is from home and is currently on room air. COVID19 negative. Cardiology following. SS will continue to follow for discharge planning.
[2021-03-16 15:00] VITALS: BP 146/101
[2021-03-16] MEDS ORDERED: SPIRONOLACTONE 25 MG TABLET PO SCH (15:15)
[2021-03-16] MEDS ORDERED: METOPROLOL SUCC 24HR ER 50 MG TAB.ER.24H. PO SCH (15:30)
[2021-03-16] MEDS ORDERED: EMPA25TA PO (16:21)
[2021-03-16] MEDS ORDERED: METO50TA4 PO (16:21)
[2021-03-16] MEDS ORDERED: ATOR10TA60 PO (16:21)
[2021-03-16] MEDS ORDERED: SPIR25TA PO (16:21)
[2021-03-16] MEDS ORDERED: ASPI-886 PO (16:21)
[2021-03-16] MEDS ORDERED: LINA5TAB PO (16:21)
[2021-03-16] MEDS ORDERED: NITR0.4T24 SL (16:21)
[2021-03-16] MEDS ORDERED: LOSA25TA54 PO (16:21)
[2021-03-16 16:42] VITALS: BP 146/101
--- NOTE | 2021-03-16 16:46 | PDOC3 ---
Discharge Summary Visit Information Date of Admission: Mar 15, 2021 Date of Discharge: Mar 16, 2021 Admitting Diagnosis: Acute CHF Final Diagnosis Problems Medical Problems: (1) Pulmonary edema Status: Acute Brief Hospital Course Allergies Allergies Coded Allergies Type Severity Reaction Last Updated Verified No Known Drug Allergies 06/10/19 No Vital Signs Vital Signs Date Time Temp Pulse Resp B/P (MAP) Pulse Ox O2 Delivery O2 Flow Rate FiO2 03/16/21 15:00 98.1 102 18 146/101 (116) 98 Room Air 98.1 Lab Results Laboratory Tests Test 03/15/21 04:05 03/15/21 04:50 03/15/21 12:00 03/15/21 18:30 SARS-CoV-2 RNA (BRITTNY) Negative (Negative) SARS-CoV-2 Antigen (Rapid) Negative (NEGATIVE) White Blood Count 7.7 x10^3/uL (4.0-11.0) Red Blood Count 5.52 x10^6/uL (4.30-5.70) Hemoglobin 12.7 g/dL (13.0-17.5) Hematocrit 39.9 % (39.0-53.0) Mean Corpuscular Volume 72 fL (79-100) Mean Corpuscular Hemoglobin 23 pg (25-35) Mean Corpuscular Hemoglobin Concent 32 g/dL (31-37) Red Cell Distribution Width 15.0 % (11.5-14.5) Platelet Count 376 x10^3/uL (140-400) Neutrophils (%) (Auto) 57 % (31-73) Lymphocytes (%) (Auto) 34 % (24-48) Monocytes (%) (Auto) 7 % (0-9) Eosinophils (%) (Auto) 1 % (0-3) Basophils (%) (Auto) 2 % (0-3) Neutrophils # (Auto) 4.3 x10^3/uL (1.8-7.7) Lymphocytes # (Auto) 2.6 x10^3/uL (1.0-4.8) Monocytes # (Auto) 0.5 x10^3/uL (0.0-1.1) Eosinophils # (Auto) 0.1 x10^3/uL (0.0-0.7) Basophils # (Auto) 0.1 x10^3/uL (0.0-0.2) Sodium Level 141 mmol/L (136-145) Potassium Level 3.8 mmol/L (3.5-5.1) Chloride Level 105 mmol/L (98-107) Carbon Dioxide Level 26 mmol/L (21-32) Anion Gap 10 (6-14) Blood Urea Nitrogen 10 mg/dL (8-26) Creatinine 1.2 mg/dL (0.7-1.3) Estimated GFR (Cockcroft-Gault) 81.1 BUN/Creatinine Ratio 8 (6-20) Glucose Level 110 mg/dL (70-99) Hemoglobin A1c 6.5 % (4.8-5.6) Calcium Level 8.9 mg/dL (8.5-10.1) Total Bilirubin 0.3 mg/dL (0.2-1.0) Aspartate Amino Transf (AST/SGOT) 12 U/L (15-37) Alanine Aminotransferase (ALT/SGPT) 25 U/L (16-63) Alkaline Phosphatase 47 U/L (46-116) Troponin I Quantitative 0.037 ng/mL (0.000-0.055) 0.027 ng/mL (0.000-0.055) 0.026 ng/mL (0.000-0.055) NC-Hfj-V-Type Natriuretic Peptide 2774 pg/mL (0-124) Total Protein 7.4 g/dL (6.4-8.2) Albumin 3.1 g/dL (3.4-5.0) Albumin/Globulin Ratio 0.7 (1.0-1.7) Triglycerides Level 156 mg/dL (0-150) Cholesterol Level 154 mg/dL (0-200) LDL Cholesterol, Calculated 98 mg/dL (0-100) VLDL Cholesterol, Calculated 31 mg/dL (0-40) Non-HDL Cholesterol Calculated 129 mg/dL (0-129) HDL Cholesterol 25 mg/dL (40-60) Cholesterol/HDL Ratio 6.2 Procalcitonin < 0.10 ng/mL (0.00-0.10) Thyroid Stimulating Hormone (TSH) 3.728 uIU/mL (0.358-3.74) Iron Level 41 ug/dL (65-175) Total Iron Binding Capacity 262 ug/dL (250-450) Iron Saturation 16 % (15-34) Test 03/16/21 03:20 03/16/21 12:03 03/16/21 16:23 White Blood Count 8.1 x10^3/uL (4.0-11.0) Red Blood Count 5.57 x10^6/uL (4.30-5.70) Hemoglobin 13.2 g/dL (13.0-17.5) Hematocrit 40.9 % (39.0-53.0) Mean Corpuscular Volume 73 fL (79-100) Mean Corpuscular Hemoglobin 24 pg (25-35) Mean Corpuscular Hemoglobin Concent 32 g/dL (31-37) Red Cell Distribution Width 14.6 % (11.5-14.5) Platelet Count 378 x10^3/uL (140-400) Neutrophils (%) (Auto) 50 % (31-73) Lymphocytes (%) (Auto) 39 % (24-48) Monocytes (%) (Auto) 8 % (0-9) Eosinophils (%) (Auto) 2 % (0-3) Basophils (%) (Auto) 1 % (0-3) Neutrophils # (Auto) 4.0 x10^3/uL (1.8-7.7) Lymphocytes # (Auto) 3.2 x10^3/uL (1.0-4.8) Monocytes # (Auto) 0.7 x10^3/uL (0.0-1.1) Eosinophils # (Auto) 0.1 x10^3/uL (0.0-0.7) Basophils # (Auto) 0.1 x10^3/uL (0.0-0.2) Sodium Level 138 mmol/L (136-145) Potassium Level 3.6 mmol/L (3.5-5.1) Chloride Level 103 mmol/L (98-107) Carbon Dioxide Level 26 mmol/L (21-32) Anion Gap 9 (6-14) Blood Urea Nitrogen 12 mg/dL (8-26) Creatinine 1.3 mg/dL (0.7-1.3) Estimated GFR (Cockcroft-Gault) 74.0 Glucose Level 115 mg/dL (70-99) Calcium Level 8.8 mg/dL (8.5-10.1) Magnesium Level 1.9 mg/dL (1.8-2.4) Glucose (Fingerstick) 129 mg/dL (70-99) 125 mg/dL (70-99) Laboratory Tests Test 03/15/21 18:30 03/16/21 03:20 03/16/21 12:03 03/16/21 16:23 Iron Level 41 ug/dL (65-175) Total Iron Binding Capacity 262 ug/dL (250-450) Iron Saturation 16 % (15-34) Troponin I Quantitative 0.026 ng/mL (0.000-0.055) White Blood Count 8.1 x10^3/uL (4.0-11.0) Red Blood Count 5.57 x10^6/uL (4.30-5.70) Hemoglobin 13.2 g/dL (13.0-17.5) Hematocrit 40.9 % (39.0-53.0) Mean Corpuscular Volume 73 fL (79-100) Mean Corpuscular Hemoglobin 24 pg (25-35) Mean Corpuscular Hemoglobin Concent 32 g/dL (31-37) Red Cell Distribution Width 14.6 % (11.5-14.5) Platelet Count 378 x10^3/uL (140-400) Neutrophils (%) (Auto) 50 % (31-73) Lymphocytes (%) (Auto) 39 % (24-48) Monocytes (%) (Auto) 8 % (0-9) Eosinophils (%) (Auto) 2 % (0-3) Basophils (%) (Auto) 1 % (0-3) Neutrophils # (Auto) 4.0 x10^3/uL (1.8-7.7) Lymphocytes # (Auto) 3.2 x10^3/uL (1.0-4.8) Monocytes # (Auto) 0.7 x10^3/uL (0.0-1.1) Eosinophils # (Auto) 0.1 x10^3/uL (0.0-0.7) Basophils # (Auto) 0.1 x10^3/uL (0.0-0.2) Sodium Level 138 mmol/L (136-145) Potassium Level 3.6 mmol/L (3.5-5.1) Chloride Level 103 mmol/L (98-107) Carbon Dioxide Level 26 mmol/L (21-32) Anion Gap 9 (6-14) Blood Urea Nitrogen 12 mg/dL (8-26) Creatinine 1.3 mg/dL (0.7-1.3) Estimated GFR (Cockcroft-Gault) 74.0 Glucose Level 115 mg/dL (70-99) Calcium Level 8.8 mg/dL (8.5-10.1) Magnesium Level 1.9 mg/dL (1.8-2.4) Glucose (Fingerstick) 129 mg/dL (70-99) 125 mg/dL (70-99) Brief Hospital Course Mr Zheng is a 40-year-old male with PMHx HTN, morbid obesity, smoker who presents for shortness of breath. He is here 1 week ago for similar complaints in addition to constellation of upper respiratory and gastrointestinal symptoms that were nonconcerning for any emergent or surgical issues, he is Covid negative at that time with unremarkable work-up and discharged home. He reports improvement in URI symptoms but ongoing shortness of breath that is worse when lying flat in addition to intermittent nausea and looser stools than usual. He denies any significant cardiac history or other known medical issues, takes no medications on a daily basis. He smokes, denies alcohol or illicit drug abuse. Has no significant family medical history for early cardiac . States that he was trying to sleep this evening but was having worsening shortness of breath when lying flat and at times, woke up in a panic gasping for breath. 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 He also notes that he has been having diarrhea for a week. No liquid stools just loose bowel movements. He had a ParasitX & ParasitX vaccine against COVID-19 in September 2020 Patient with O2 saturations 87% on room air worsening O2 saturation with laying flat which improved significantly with CPAP. Afebrile, tachycardic WBC 7.7, Hb 12.7, platelets 376.41, K3.8, BUN 10, CR 1.2, glucose 1, albumin 3.1, LFTs otherwise within normal laboratory limits, troponin 0.037, NT proBNP 2774, rapid COVID-19 negative EKG appears sinus rhythm rate 35 bpm normal axis and intervals, peaking of p waves, QTC 456, no ST segment elevations or T WI Chest radiograph with cardiomegaly and interstitial prominence. Due to tachycardia shortness of breath he underwent CTPA which was negative for pulmonary embolism but revealed small lymphadenopathy and bibasilar groundglass opacities. Admitted for further care. He was short of breath requiring BiPAP overnight with improvement. IV Lasix did improve his breath and swelling. Echocardiogram revealed EF 25% global hypokinesis. Consults: Cardiology Problem list: Shortness of breath - with CHF symptoms. Will diurese. Smoking cessation 6 minutes Acute systolic and diastolic CHF - IV lasix improved. Consult cardiology. Will get on BB prior to d/c. statin, ASA. Will needs outpatient ischemic w/u, daily weight, I/O. EF 25% Hypertension - needs treatment Tobaccoism - counseled on cessation Morbid obesity - counseled on lifestyle modification Diarrhea - will r/o COVID 19, likely his loose stools are related to abdominal swelling from acute CHF Presumptive PRAVEEN - improved with BIPAP Hyperglycemia - A1c returned 6.5 consistent with newly diagnosed DM2. Will start tradjenta, would benefit from jardiance given his CHF. Counseled on diabetic care Greater than 30 minutes spent on d/c Discharge Information Condition at Discharge: Improved Follow Up: Weeks (1) Disposition/Orders: D/C to Home Scheduled Aspirin (Aspirin Ec) 81 Mg Tablet., 81 MG PO [id number] for CHF for 30 Days, #30 Ref 11 Prescribed by: LYDIA AUGUST MD on 03/16/21 1621 Atorvastatin Calcium (Atorvastatin Calcium) 10 Mg Tablet, 10 MG PO QHS for CHF for 30 Days, #30 Ref 5 Prescribed by: LYDIA AUGUST MD on 03/16/21 1621 Empagliflozin (Jardiance) 25 Mg Tablet, 25 MG PO DAILY for DM2 for 30 Days, #30 Ref 5 Prescribed by: LYDIA AUGUST MD on 03/16/21 1621 Famotidine (Famotidine) 20 Mg Tablet, 20 MG PO BID, #25 Prescribed by: KAREL MONROY APRN on 03/08/21 1520 Last Action: Reviewed on 03/15/21 1432 by YONNY AGUILAR Linagliptin (Tradjenta) 5 Mg Tablet, 5 MG PO DAILY for DM2 for 30 Days, #30 Ref 5 Prescribed by: LYDIA AUGUST MD on 03/16/21 1621 Losartan Potassium (Losartan Potassium ) 25 Mg Tablet, 25 MG PO DAILY for CHF for 30 Days, #30 Ref 5 Prescribed by: LYDIA AUGUST MD on 03/16/21 1621 Metoprolol Succinate (Toprol XL) 50 Mg Tab.er.24h, 50 MG PO DAILY for CHF for 30 Days, #30 Ref 5 Prescribed by: LYDIA AUGUST MD on 03/16/21 1621 Spironolactone (Aldactone) 25 Mg Tablet, 25 MG PO DAILY for CHF for 30 Days, #30 Ref 5 Prescribed by: LYDIA AUGUST MD on 03/16/21 1621 Scheduled PRN Nitroglycerin (Nitrostat) 0.4 Mg Tab.subl, 0.4 MG SL PRN Q5MIN PRN for CHEST PAIN for 30 Days, #9 Prescribed by: LYDIA AUGUST MD on 03/16/21 1621 Discontinued Medications Ciprofloxacin Hcl (Ciprofloxacin Hcl) 500 Mg Tablet, 1 TAB PO BID, #20 Prescribed by: CESAR HADDAD APRN on 06/24/19 2223 Metronidazole (Metronidazole) 500 Mg Tablet, 1 TAB PO TID for 10 Days, #30 Ref 0 Prescribed by: CESAR HADDAD APRN on 06/24/19 2223 Ondansetron (Ondansetron Odt) 4 Mg Tab.rapdis, 1 TAB PO PRN Q6-8HRS, #16 Prescribed by: Neena Espinal APRN on 06/10/19 2129 Ondansetron (Ondansetron Odt) 4 Mg Tab.rapdis, 1 TAB PO PRN Q6-8HRS, #16 Prescribed by: KAREL MONROY APRN on 03/08/21 1520 Last Action: Reviewed on 03/15/21 1432 by YONNY AGUILAR Justicifation of Admission Dx: Justifications for Admission: Justification of Admission Dx: Yes LYDIA AUGUST MD Mar 16, 2021 16:46
--- NOTE | 2021-03-16 18:00 | NUR ---
Discharge Note: BYRON PRADO Discharge instructions and discharge home medications reviewed with Patient and a copy given. All questions have been answered and understanding verbalized. The following instructions and handouts were given: CHF booklet, diabetes. IV discontinued, no complications. Patient discharged to home with self care. All belongings taken home with patient.
[2021-03-16] MEDS ORDERED: ATORVASTATIN CALCIUM 10 MG TABLET. PO SCH (21:00)
[2021-03-17] MEDS ORDERED: ASPIRIN ENTERIC COATED 81 MG TABLET.DR. PO SCH (08:00)
== END 2021-03-16 18:00 | disposition home or self-care (01) | DRG 291 ==
LOC: ER 02:43 → 6 SOUTH 06:42 → ED HOLD 06:53 → 6 SOUTH 13:45
PROVIDERS: ADMIT Family Medicine; ATTEND Family Medicine
PROC: 5A09357 Assistance with Respiratory Ventilation, Less than 24 Consecutive Hours, Continuous Positive Airway Pressure (ICD-10-PCS; principal; 2021-03-15)
PROC: 5A09357 Assistance with Respiratory Ventilation, Less than 24 Consecutive Hours, Continuous Positive Airway Pressure (ICD-10-PCS; 2021-03-16)
DX: I11.0 Hypertensive heart disease with heart failure (principal); J96.00 Acute respiratory failure, unspecified whether with hypoxia or hypercapnia; J98.11 Atelectasis; I50.43 Acute on chronic combined systolic (congestive) and diastolic (congestive) heart failure; I42.9 Cardiomyopathy, unspecified; E11.65 Type 2 diabetes mellitus with hyperglycemia; E66.01 Morbid (severe) obesity due to excess calories; F17.210 Nicotine dependence, cigarettes, uncomplicated; G47.33 Obstructive sleep apnea (adult) (pediatric); Z20.822 Contact with and (suspected) exposure to COVID-19; Z82.49 Family history of ischemic heart disease and other diseases of the circulatory system; Z83.3 Family history of diabetes mellitus; Z86.16 Personal history of COVID-19; E66.9 Obesity, unspecified
CPT/HCPCS: 36415; 71045; 71275; 80048; 80053; 80061; 82962; 83036; 83540; 83550; 83735; 83880; 84145; 84443; 84484; 85025; 87426; 90471; 90686; 93005; 93306; 94660; J0456; J0696; J1815; J1940; Q9967; U0003; U0005; 99285-25; G0378

== ENCOUNTER 2021-03-30 18:52 | Emergency (ER) | payer OTHER ==
[~2021-03-30] VITALS: Ht 175.3 cm; Wt 137.2 kg
[~2021-03-30 18:52] MED LIST changes: +ASPI-886 PO; +ATOR10TA60 PO; +EMPA25TA PO; +LINA5TAB PO; +LOSA25TA54 PO; +METO50TA4 PO; +NITR0.4T24 SL; +SPIR25TA PO
--- NOTE | 2021-03-30 19:26 | ED.ADGEN ---
Past Medical History Past Medical History: Hypertension Past Surgical History: No Surgical History Smoking Status: Current Every Day Smoker Alcohol Use: None Drug Use: None General Adult EDM: Chief Complaint: CHEST PAIN HPI: HPI: Patient is a 40 year old male coming in for chest pain starting 30 minutes prior to arrival. Patient states he was leaving his uncles house about the drive home refill of the pain that was gradually getting worse. Says the pain is pressure-like and substernal, does not radiate. No other associated symptoms such as lightheadedness, sweating, nausea. Patient states he is unable to lay down because a cause of shortness of breath. Patient was just discharged from this facility about 2 weeks ago for new diagnosis of CHF. Patient's echocardiogram from 2 weeks ago shows systolic dysfunction with an EF of 25%. Patient said the pain was 6 out of 10 at maximal intensity, was given the 24 mg aspirin and a nitroglycerin by EMS and says the pain is much better but now has a headache. Review of Systems: Review of Systems: All other systems within normal limits except for as noted in the HPI Current Medications: Current Medications Medications (Trade) Dose Ordered Sig/Marybeth Start Time Stop Time Status Last Admin Dose Admin Info (CONTRAST GIVEN -- Rx MONITORING) 1 each PRN DAILY PRN 03/30/21 21:15 04/01/21 21:14 Iohexol (Omnipaque 350 Mg/ml) 100 ml 1X ONCE 03/30/21 20:15 03/30/21 21:08 DC 03/30/21 20:44 100 ML Allergies: Allergies: Allergies Coded Allergies Type Severity Reaction Last Updated Verified No Known Drug Allergies 03/30/21 No Physical Exam: PE: Constitutional: Well developed, well nourished, no acute distress, non-toxic appearance. [] HENT: Normocephalic, atraumatic, bilateral external ears normal, nose normal. [] Eyes: PERRLA, conjunctiva normal, no discharge. [] Neck: No rigidity, supple, no stridor. [] Cardiovascular: Regular rate and rhythm, brisk cap refill [] Lungs & Thorax: Non labored symmetric respirations, no tachypnea or respiratory distress. Bilateral basilar crackles more prominent on the right [] Abdomen: Soft, nondistended. Skin: Warm, dry, no erythema, no rash. [] Back: Unremarkable Extremities: No deformities, range of motion grossly intact, no lower extremity edema [] Neurologic: Alert and oriented X 3, no focal deficits noted. [] Psychologic: Affect normal, judgement normal, mood normal. [] Current Patient Data: Labs: Laboratory Tests Test 03/30/21 19:15 03/30/21 22:40 White Blood Count 6.8 x10^3/uL (4.0-11.0) Red Blood Count 5.53 x10^6/uL (4.30-5.70) Hemoglobin 12.6 g/dL (13.0-17.5) L Hematocrit 39.6 % (39.0-53.0) Mean Corpuscular Volume 72 fL (79-100) L Mean Corpuscular Hemoglobin 23 pg (25-35) L Mean Corpuscular Hemoglobin Concent 32 g/dL (31-37) Red Cell Distribution Width 15.1 % (11.5-14.5) H Platelet Count 265 x10^3/uL (140-400) Neutrophils (%) (Auto) 46 % (31-73) Lymphocytes (%) (Auto) 44 % (24-48) Monocytes (%) (Auto) 7 % (0-9) Eosinophils (%) (Auto) 2 % (0-3) Basophils (%) (Auto) 1 % (0-3) Neutrophils # (Auto) 3.1 x10^3/uL (1.8-7.7) Lymphocytes # (Auto) 3.0 x10^3/uL (1.0-4.8) Monocytes # (Auto) 0.5 x10^3/uL (0.0-1.1) Eosinophils # (Auto) 0.1 x10^3/uL (0.0-0.7) Basophils # (Auto) 0.0 x10^3/uL (0.0-0.2) Platelet Estimate Adequate (ADEQUATE) Polychromasia Slight Hypochromasia Mod Microcytosis Mod Prothrombin Time 13.4 SEC (11.7-14.0) Prothrombin Time INR 1.0 (0.8-1.1) D-Dimer (Yolanda) 0.57 ug/mlFEU (0.00-0.50) H Sodium Level 141 mmol/L (136-145) Potassium Level 3.9 mmol/L (3.5-5.1) Chloride Level 107 mmol/L (98-107) Carbon Dioxide Level 23 mmol/L (21-32) Anion Gap 11 (6-14) Blood Urea Nitrogen 18 mg/dL (8-26) Creatinine 1.2 mg/dL (0.7-1.3) Estimated GFR (Cockcroft-Gault) 81.1 BUN/Creatinine Ratio 15 (6-20) Glucose Level 102 mg/dL (70-99) H Calcium Level 8.6 mg/dL (8.5-10.1) Magnesium Level 1.9 mg/dL (1.8-2.4) Total Bilirubin 0.5 mg/dL (0.2-1.0) Aspartate Amino Transferase (AST) 17 U/L (15-37) Alanine Aminotransferase (ALT) 38 U/L (16-63) Alkaline Phosphatase 55 U/L (46-116) Troponin I Quantitative 0.017 ng/mL (0.000-0.055) 0.021 ng/mL (0.000-0.055) IQ-Wgl-C-Type Natriuretic Peptide 2214 pg/mL (0-124) H Total Protein 6.8 g/dL (6.4-8.2) Albumin 3.4 g/dL (3.4-5.0) Albumin/Globulin Ratio 1.0 (1.0-1.7) Lipase 64 U/L (73-393) L Laboratory Tests 03/30/21 19:15 Laboratory Tests 03/30/21 19:15 Vital Signs: Vital Signs Date Time Temp Pulse Resp B/P (MAP) Pulse Ox O2 Delivery O2 Flow Rate FiO2 03/30/21 20:20 87 24 165/96 (119) 97 Room Air 03/30/21 18:57 99.2 99.2 EKG: EK:Sinus rhythm, heart rate 90 bpm, normal axis, no ST elevation or depression, no ectopy, T wave inversion in lead V6. Unable to obtain prior EKGs for comparison 2344: Heart rate 90 bpm, no changes from previous EKG Heart Score: C/O Chest Pain: Yes HEART Score for Chest Pain: HEART Score for Chest Pain Response (Comments) Value History Moderately Suspicious 1 ECG Normal 0 Age < 45 0 Risk Factors >3 Risk Factors or Hx CAD 2 Troponin < Normal Limit 0 Total 3 Risk Factors: Risk Factors: DM, Current or recent (<one month) smoker, HTN, HLP, family history of CAD, obesity. Risk Scores: Score 0 - 3: 2.5% MACE over next 6 weeks - Discharge Home Score 4 - 6: 20.3% MACE over next 6 weeks - Admit for Clinical Observation Score 7 - 10: 72.7% MACE over next 6 weeks - Early Invasive Strategies Radiology/Procedures: Radiology/Procedures: [place] [address] IMAGING REPORT Signed PATIENT: BYRON PRADO ACCOUNT: [id number] : 1980 LOCATION: ER AGE: 40 SEX: M EXAM STATUS: PRE ER ORD. PHYSICIAN: CRISTIANA ZHENG MD REASON: chest pain PROCEDURE: CHEST AP ONLY Exam: Chest one view INDICATION: Chest pain TECHNIQUE: Frontal view of the chest Comparisons: 03/15/2021 FINDINGS: Heart is mildly enlarged. Pulmonary vessels are within normal limits. The lung and pleural spaces are clear. IMPRESSION: No acute pulmonary process. Electronically signed by: Bhaskar Condon MD (03/30/2021 7:28 PM) [facility] DICTATED and SIGNED BY: BHASKAR CONDON MD DATE: 03/30/21 [id number] 0 [][place] [id number] IMAGING REPORT Signed PATIENT: GIORGIO LOWERY ACCOUNT: [id number] : 04/02/1978 LOCATION: ER AGE: 42 SEX: F EXAM STATUS: REG ER ORD. PHYSICIAN: CRISTIANA ZHENG MD REASON: SOA PROCEDURE: CHEST PA & LATERAL PA and lateral chest. HISTORY: Short of air PA and lateral views of the chest show the lungs are clear. Heart is normal in size. There is no effusion. IMPRESSION: 1. No acute chest disease. Electronically signed by: Narciso Hester MD (03/30/2021 8:10 PM) [facility] DICTATED and SIGNED BY: NARCISO HESTER MD DATE: 03/30/21 [id number] 0 Course & Med Decision Making: Course & Med Decision Making Pertinent Labs and Imaging studies reviewed. (See chart for details) Patient observed in emergency department without return of chest pain. Repeat EKG and troponin negative. Discussed options of discharge with return precautions versus admission for observation for chest pain rule out. Patient states that he would like to go home since he just stayed in the hospital and understands return precautions and how to use nitroglycerin and when to call EMS. He has an already scheduled follow-up appointment with cardiology in 5 days. [] Dragon Disclaimer: Dragon Disclaimer: This electronic medical record was generated, in whole or in part, using a voice recognition dictation system. Departure Departure Impression: Primary Impression: Chest pain Disposition: HOME / SELF CARE / HOMELESS Condition: STABLE Referrals: NO PCP (PCP) Patient Instructions: Chest Pain (Nonspecific) CRISTIANA ZHENG MD Mar 30, 2021 19:26
--- NOTE | 2021-03-30 19:30 | RAD ---
Exam: Chest one view INDICATION: Chest pain TECHNIQUE: Frontal view of the chest Comparisons: 03/15/2021 FINDINGS: Heart is mildly enlarged. Pulmonary vessels are within normal limits. The lung and pleural spaces are clear. IMPRESSION: No acute pulmonary process. Electronically signed by: Bhaskar Limon MD (03/30/2021 7:28 PM) [facility]
[2021-03-30 19:40] LABS: BASO % 1 % (0-3); EOS # 0.1 x10^3/uL (0.0-0.7); EOS % 2 % (0-3); HEMATOCRIT 39.6 % (39.0-53.0); HEMOGLOBIN 12.6 g/dL (13.0-17.5); LYMPH % 44 % (24-48); MEAN CORPUSCULAR HEMOGLOBIN 23 pg (25-35); MEAN CORPUSCULAR HGB CONC 32 g/dL (31-37); MEAN CORPUSCULAR VOLUME 72 fL (79-100); MONO # 0.5 x10^3/uL (0.0-1.1); MONO % 7 % (0-9); NEUT # 3.1 x10^3/uL (1.8-7.7); NEUT % 46 % (31-73); PLATELET COUNT 265 x10^3/uL (140-400); RED BLOOD COUNT 5.53 x10^6/uL (4.30-5.70); RED CELL DISTRIBUTION WIDTH 15.1 % (11.5-14.5); WHITE BLOOD COUNT 6.8 x10^3/uL (4.0-11.0)
[2021-03-30 19:41] LABS: CALCIUM 8.6 mg/dL (8.5-10.1); CREATININE 1.2 mg/dL (0.7-1.3); GFR 81.1; POTASSIUM 3.9 mmol/L (3.5-5.1); PROTHROMBIN TIME PATIENT 13.4 SEC (11.7-14.0)
[2021-03-30 19:45] LABS: D-DIMER 0.57 ug/mlFEU (0.00-0.50)
[2021-03-30 19:46] LABS: ALBUMIN 3.4 g/dL (3.4-5.0); MAGNESIUM 1.9 mg/dL (1.8-2.4); TOTAL BILIRUBIN 0.5 mg/dL (0.2-1.0); TOTAL PROTEIN 6.8 g/dL (6.4-8.2)
[2021-03-30 20:12] LABS: HYPOCHROMIA MOD; MICROCYTOSIS MOD; PLT ESTIMATE ADEQUATE (ADEQUATE); POLYCHROMASIA SLIGHT
[2021-03-30] MEDS ORDERED: IOHEXOL 350 MG/ML 100 ML VIAL. IV ONE (20:15)
--- NOTE | 2021-03-30 20:58 | RAD ---
Exam: CT of chest with contrast INDICATION: Elevated d-dimer, chest pain TECHNIQUE: Sequential axial images through the chest obtained following the administration of 100 mL of Omni 350 IV contrast. Sagittal and coronal reformatted images were reconstructed from the axial da ta and reviewed. 3-D reformatted images were reconstructed from the axial data and reviewed. Exposure: One or more of the following in the visualized dose reduction techniques were utilized for this examination: 1. Automated exposure control 2. Adjustment of the MA and/or KV according to patient size 3. Use of iterative of reconstructive technique Comparisons: Chest x-ray same day FINDINGS: Visualized portions of the thyroid are unremarkable. Numerous prominent and mildly enlarged prevascul ar and pretracheal lymph nodes. Heart size is enlarged. No pericardial effusion. Thoracic aorta has a normal course and caliber. Pulm onary artery is not enlarged. No pulmonary embolus identified within the main, lobar or segmental pul monary arteries. Airways are patent. No consolidation or pneumothorax. No suspicious lung nodules are identified. No pleural effusion or thickening. Visualized upper abdomen is unremarkable. No suspicious osseous lesions or acute fractures. IMPRESSION: No pulmonary embolus identified within the main, lobar or segmental pulmonary arteries. Electronically signed by: Bhaskar Limon MD (03/30/2021 8:56 PM) [facility]
[2021-03-30] MEDS ORDERED: CONTRAST GIVEN. MC PRN (21:15)
--- NOTE | 2021-03-30 23:54 | EKG ---
[facility] [address] [place] [address] Test Date: 2021-03-30 Test Time: 23:44:13 Pat Name: BYRON PRADO Department: Room: Gender: M Sizer Hand: : 1980 Requested By: CRISTIANA ZHENG Order Number: [id number] Reading MD: Derek Álvarez Measurements Intervals [place] Rate: 92 P: 23 MA: 150 QRS: 60 QRSD: 102 T: 49 QT: 382 QTc: 478 Interpretive Statements SINUS RHYTHM MILD NON SPECIFIC ST CHANGES Electronically Signed On 03-31-2021 15:55:59 CDT by Derek Álvarez
--- NOTE | 2021-03-30 23:54 | EKG ---
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
[2021-03-31 00:31] VITALS: BP 152/96
== END 2021-03-31 00:41 | disposition home or self-care (01) ==
LOC: ER 18:52
DX: R07.2 Precordial pain (principal); R06.02 Shortness of breath; R51.9 Headache, unspecified; I10 Essential (primary) hypertension; F17.200 Nicotine dependence, unspecified, uncomplicated
CPT/HCPCS: 36415; 71045; 71275; 80053; 83690; 83735; 83880; 84484; 85025; 85379; 85610; 93005; 99285; Q9967

== ENCOUNTER 2021-04-05 07:54 | Outpatient (CLI) | payer OTHER ==
[~2021-04-05] VITALS: Ht 175.3 cm; Wt 140.0 kg
[2021-04-05] VITALS (11 sets, daily range): BP systolic 130–165; BP diastolic 92–112
[~2021-04-05 07:54] MED LIST changes: +IODIXANOL 320 MG/ML 100 ML VIAL. ONE; +LIDOCAINE 1% PF 2 ML VIAL. ONE
[2021-04-05] MEDS ORDERED: VERAPAMIL 5 MG/2 ML VIAL. ONE (08:11)
[2021-04-05] MEDS ORDERED: MIDAZOLAM HCL/PF 5 MG/5 ML VIAL. ONE (08:11)
[2021-04-05] MEDS ORDERED: fentaNYL PF VIAL 100 MCG/2 ML VIAL ONE (08:11)
[2021-04-05] MEDS ORDERED: HEPARIN for IV BOLUS 10,000 UNIT/10 ML VIAL. ONE (08:11)
[2021-04-05] MEDS ORDERED: NITROGLYCERIN 200 MCG/2 ML SYRINGE FOR CATH/VASC LAB. ONE (08:12)
[2021-04-05] MEDS ORDERED: fentaNYL PF VIAL 100 MCG/2 ML VIAL IV ONE (09:00)
[2021-04-05] MEDS ORDERED: HEPARIN for IV BOLUS 10,000 UNIT/10 ML VIAL. IART ONE (09:00)
[2021-04-05] MEDS ORDERED: VERAPAMIL 5 MG/2 ML VIAL. IART ONE (09:00)
[2021-04-05] MEDS ORDERED: MIDAZOLAM HCL/PF 5 MG/5 ML VIAL. IV ONE (09:00)
[2021-04-05] MEDS ORDERED: IODIXANOL 320 MG/ML 100 ML VIAL. IART ONE (09:00)
[2021-04-05] MEDS ORDERED: NITROGLYCERIN 200 MCG/2 ML SYRINGE FOR CATH/VASC LAB. IART ONE (09:00)
[2021-04-05] MEDS ORDERED: LIDOCAINE 1% PF 2 ML VIAL. INJ ONE (09:00)
[2021-04-05] MEDS ORDERED: IODIXANOL 320 MG/ML 100 ML VIAL. ONE (09:11)
--- NOTE | 2021-04-05 10:08 | CARD ---
MR#: [id number] Date of Study: 04/05/2021 Ordering Physician: ELIZABETH DIA, Referring Physician: ELIZABETH DIA Tech: RT Darcy(R) APPROVED REPORT Technologist: Kae Mancilla RT(R) Nurse: Cary Portillo RN Procedure(s) performed: Left heart catheterization, selective coronary angiography via right transrad ial approach MODERATE SEDATION TIME: 50 MINUTES FLUORO TIME: 17.9 MIN DOSE: 153.8 GYCM2 CONTRAST: 188CC VISI INDICATION The indication(s) include : Cardiomyopathy, chronic systolic heart failure with EF 25%. [facility] Clinical Frailty Scale [facility] Clinical Frailty Scale: Mildly Frail Heart Failure Heart Failure: Yes If Yes, Newly Diagnosed: No If Yes, HF Type: Systolic If Yes, NYHA Class: Class II CASE TECHNIQUE IV conscious sedation was used throughout procedure with appropriate monitoring and was performed in the presence of a registered nurse who was an independent trained observer other than the physician p erforming the procedure. During this case, Fluoroscopy and low osmolar contrast were used for imaging . Specimen(s) Removed: No Estimated Blood loss: 15 cc's. PROCEDURE NARRATIVE After explaining the risks, benefits and alternative options, informed consent was obtained from leif ent. Patient was brought to the cardiac Installation And Repair Technician and right wrist was prepped and draped in the usual fashion after confirming a positive modified Kaden's test. Arterial access was obtained in the righ t radial artery and a 6 Nicaraguan sheath was inserted. 6 [place]araguan Angelo catheter was used to perform presley ective angiography of the right coronary artery. After several unsuccessful attempts at engaging the left main coronary artery with the 6 Nicaraguan Anderson followed by 6 Nicaraguan multipurpose catheter, this w as engaged with 6 Nicaraguan AL 1 catheter and selective angiography was performed. LVEDP and transaorti c gradients were measured. Left ventriculography was not performed since recent 2D echo showed EF 25 %. Patient tolerated the procedure well. Hemostasis was achieved using TR band. There were no imme diate complications. The following findings were noted: FINDINGS 1. Hemodynamics: Left ventricular end-diastolic pressure of 27 mmHg. No pullback gradient across th e aortic valve. 2. Coronary angiography: a. The left main coronary artery arose from the left sinus of Valsalva, gave rise to the left anteri or descending and left circumflex arteries and did not show any significant stenosis. b. The left anterior descending artery did not show any significant stenosis. c. The left circumflex artery did not show any significant stenosis. d. The right coronary artery was a large and dominant vessel arising from the right sinus of Valsalv a that did not show any significant stenosis. Conclusion No significant coronary artery disease Recommendations Optimization of medical therapy for nonischemic cardiomyopathy and repeat 2D echo in 3 months to eval uate the need for AICD implantation. Signed by : Elizabeth Dia, Electronically Approved : 04/05/2021 10:08:09
--- NOTE | 2021-04-05 10:15 | PDOC ---
MODERATE SEDATION ASSESSMENT RISKS/ALTERNATIVES Risks/Alternatives Risks and alternatives of this type of sedation and procedure discussed with: RISK/ALTERNATIVES: Patient H & P ON CHART H & P H & P on chart and reviewed for co-morbid conditions and appropriate labs. H&P ON CHART: Yes STATUS PREG STATUS ASSESSED: N/A MEDS/ALLERGIES REVIEWED Meds/Allergies Reviewed Medications and Allergies including time and route of recently administered narcotics and sedatives. MEDS/ALLERGIES REVIEWED: Yes ASA RATING ASA RATING: III AIRWAY ASSESSMENT Airway Assessment Airway patency, oral function limitations, presence of caps, crowns, dentures, partials, and ability to extend neck assessed. AIRWAY ASSESSMENT: Yes MALLAMPATI SCORE MALLAMPATI SCORE: II PRE-SEDATION ASSESSMENT PRE-SEDATION ASSESSMENT: Yes ELIZABETH STOVALL MD Apr 05, 2021 10:15
--- NOTE | 2021-04-05 12:02 | NUR ---
PIV removed, dressing changed at TR band site. No bleeding at site. Instructions provided on site care, sedation. Patient verbalized understanding. Patient states he is going to PCP appointment this afternoon at 1400-- states he does not want to reschedule because he wants to get straighten medications out. Labs printed and provided to patient. Patient's cousin is driving. Armboard present. Patient verbalized that he will remove tomorrow.
== END 2021-04-05 13:00 | disposition home or self-care (01) ==
LOC: CCL 07:54
PROVIDERS: ATTEND Internal Medicine Cardiovascular Disease
DX: I11.0 Hypertensive heart disease with heart failure (principal); I50.22 Chronic systolic (congestive) heart failure; I42.8 Other cardiomyopathies; E78.00 Pure hypercholesterolemia, unspecified; E11.9 Type 2 diabetes mellitus without complications; F17.210 Nicotine dependence, cigarettes, uncomplicated; Z79.82 Long term (current) use of aspirin; Z79.899 Other long term (current) drug therapy; Z98.890 Other specified postprocedural states; Z82.49 Family history of ischemic heart disease and other diseases of the circulatory system; Z83.3 Family history of diabetes mellitus
CPT/HCPCS: 93458; 99152; 99153; C1769; C1894; J1644; J2250; J3010; J3490; Q9967

== ENCOUNTER → 2021-04-06 | Outpatient (CLI) | payer OTHER ==
[2021-04-05 11:57] VITALS: BP 159/99
[~2021-04-06] MED LIST changes: -IODIXANOL 320 MG/ML 100 ML VIAL. ONE; -LIDOCAINE 1% PF 2 ML VIAL. ONE
--- NOTE | 2021-04-07 13:37 | SLEEP ---
DATE OF STUDY: 04/06/2021 POLYSOMNOGRAM OBJECTIVE: The patient is a 40-year-old male with snoring, fatigue, observed apnea, excessive somnolence, awakening short of breath. Height 5 feet 9 inches, weight 302 pounds, body mass index 45. [place] sleep score 6. INTERPRETATION: Sleep architecture is characterized by a sleep efficiency of 93% across the 8.4 hours of recording time. There is a decreased amount of slow-wave sleep. Sleep onset latency is 4 minutes. Respiratory monitoring shows a total of 228 events for an apnea-hypopnea index across the study of 29.2 events per hour of sleep. This was done as a split night study and prior to treatment, the apnea-hypopnea index is 76.6 events per hour of sleep. The patient is titrated on CPAP. He does have good control of apnea on 11 cm, but then turned to the supine position and apneas return. The CPAP was titrated to the final setting of 15 cm. The minimum oxygen saturation is 75%. There are no periodic limb movements of sleep or cardiac arrhythmias. IMPRESSION: Abnormal polysomnogram showing severe obstructive sleep apnea and hypopnea treatable on CPAP at 15 cm using a Respironics DreamWear full face mask, medium size. RECOMMENDATIONS: 1. The patient should be established on the setting. 2. He should avoid sedatives and alcohol and pursue weight loss. He should avoid the supine position. Thank you for letting us help with the patient's care. POLLO DR: Cynthia TID: [id number] CC: LYDIA AUGUST MD, Debbie Egan MD
== END ==
LOC: SLPLAB 19:25
PROVIDERS: ATTEND Internal Medicine
DX: G47.33 Obstructive sleep apnea (adult) (pediatric) (principal)
CPT/HCPCS: 95810

== ENCOUNTER 2021-05-20 12:15 | Emergency (ER) | payer OTHER ==
[~2021-05-20] VITALS: Ht 172.7 cm; Wt 145.0 kg
--- NOTE | 2021-05-20 14:36 | PHYS DOC ---
Past Medical History Past Medical History: CHF, Hypertension Past Surgical History: No Surgical History Smoking Status: Current Every Day Smoker Alcohol Use: None Drug Use: None General Adult EDM: Chief Complaint: COUGH HPI: HPI: Patient is a 40 year old male with history of nonischemic cardiomyopathy EF 25% , obstructive sleep apnea, HTN who presents with increasing shortness of breath cough. Symptoms been progressive over the past 2 weeks. He notices worsening orthopnea and exertional dyspnea. No chest pain. No fevers/chills. Cough is nonproductive. No sick contacts. Denies Covid contacts. Is vaccinated against Covid. He has not noticed much change in his lower extremity edema. Medications include metoprolol and spironolactone. States he has not missed any doses. States he is not currently on a diuretic medication. His superintendent pressure is Dr. Montejo. 03/2021 Cardiac Cath: no significant coronary artery disease 02/2021 Echo conclusion: The Left Ventricle is moderately to severely dilated. The systolic function is severely impaired. The Ejection Fraction is estimated at 25%. There is severe global hypokinesis of the left ventricle. There is mild concentric left ventricular hypertrophy. Doppler and Color Flow revealed trace aortic regurgitation. There is no significant aortic valvular stenosis. Doppler and Color-flow revealed trace to mild mitral regurgitation. Doppler and Color Flow revealed trace tricuspid regurgitation with an estimated PAP of 31 mmHg. Review of Systems: Review of Systems: Constitutional: Denies fever or chills. [] Eyes: Denies change in visual acuity. [] HENT: Denies nasal congestion or sore throat. [] Respiratory: Reports cough and shortness of breath Cardiovascular: Denies chest pain or edema. [] GI: Denies abdominal pain, nausea, vomiting, bloody stools or diarrhea. [] : Denies dysuria. [] Musculoskeletal: Denies back pain or joint pain. [] Integument: Denies rash. [] Neurologic: Denies headache, focal weakness or sensory changes. [] Endocrine: Denies polyuria or polydipsia. [] Lymphatic: Denies swollen glands. [] Psychiatric: Denies depression or anxiety. [] Heart Score: C/O Chest Pain: No Allergies: Allergies: Allergies Coded Allergies Type Severity Reaction Last Updated Verified No Known Drug Allergies 05/20/21 No Physical Exam: PE: Constitutional: Well developed, well nourished, no acute distress, non-toxic a ppearance. [] HENT: Normocephalic, atraumatic Eyes: conjunctiva normal, no discharge. [] Neck: Normal range of motion, no tenderness, supple, no stridor. [] Cardiovascular:Heart rate regular rhythm, no murmur [] Lungs & Thorax: Bilateral breath sounds clear to auscultation. Normal work of breathing. No crackles. [] Abdomen: Bowel sounds normal, soft, no tenderness, no masses, no pulsatile masses. [] Skin: Warm, dry, no erythema, no rash. [] Back: No tenderness, no CVA tenderness. [] Extremities: Trace pitting edema in bilateral lower extremity Neurologic: Alert and oriented X 3, normal motor function, normal sensory function, no focal deficits noted. [] Psychologic: Affect normal, judgement normal, mood normal. [] Current Patient Data: Vital Signs: Vital Signs Date Time Temp Pulse Resp B/P (MAP) Pulse Ox O2 Delivery O2 Flow Rate FiO2 05/20/21 14:25 98.1 96 16 131/93 (106) 98 98.1 EKG: EKG: [] Radiology/Procedures: Radiology/Procedures: [] Impression: [facility] [address] [place], [place] [id number] IMAGING REPORT Signed PATIENT: BYRON PRADO ACCOUNT: [id number] : 1980 LOCATION: ER AGE: 40 SEX: M EXAM STATUS: REG ER ORD. PHYSICIAN: MAKAYLA JOHNSON MD REASON: sob, HF hx PROCEDURE: CHEST AP ONLY EXAM: AP View of the chest DATE: 05/20/2021 2:42 PM INDICATION: Reason: sob, HF hx / Spl. Instructions: / History: COMPARISON: 03/30/2021 [id number] FINDINGS: Cardiomegaly. Patchy perihilar and lung base airspace opacities, mildly progressed compared to 03/30/2021. No pleural effusion. No pneumothorax. No focal parenchymal airspace opacity. IMPRESSION: Cardiomegaly with bilateral airspace opacities likely consolidative process such as pneumonia. Pulmonary edema could have this appearance although no pleural effusions are seen. Electronically signed by: Mathieu Jensen MD (05/20/2021 3:24 PM) [id number] DICTATED and SIGNED BY: MATHIEU JENSEN MD DATE: 05/20/21 [id number] 0 Course & Med Decision Making: Course & Med Decision Making Pertinent Labs and Imaging studies reviewed. (See chart for details) Patient 40-year-old male with history of nonischemic cardiomyopathy, EF 25% who presents with increasing cough and shortness of breath. Describes orthopnea and exertional dyspnea, concerning for heart failure exace rbation. Is not currently on any diuretic medication. We will check CXR, BNP, BMP, CBC, EKG, and Covid swabs. Consider Covid, CHF. No wheezes to suggest COPD. No fever/chills, sputum production suggest bacterial pneumonia. Fortunately, is hemodynamically stable, satting well on room air. 1442 BNP elevated from baseline, CXR with interstitial opacities read as pneumonia vs pulmonary edema. I favor edema given his history. COVID swabs pending. Discussed with Dr. Dia, the patient's superintendent pressure, and we feel he is appropriate for an outpatient trial of lasix 20mg BID. 1616 Dragon Disclaimer: Dragon Disclaimer: This electronic medical record was generated, in whole or in part, using a voice recognition dictation system. Departure Departure Impression: Primary Impression: Non-ischemic cardiomyopathy Additional Impression: Pulmonary edema Disposition: 01 HOME / SELF CARE / HOMELESS Condition: STABLE Referrals: RANDA AZEVEDO MD (PCP) Additional Instructions: Your Covid test is pending. Please self isolate until you know the results of this test. It appears that you have extra fluid on your lungs that are causing your cough and shortness of breath. Would like to start you on a medication called furosemide 20 mg daily to try to get you to pee off more of this fluid. Please call your superintendent pressure office to schedule a follow-up appointment. If you develop increasing shortness of breath, significant weight gain, sign ificant swelling in your legs, or other new/concerning symptoms please return to the emergency department for reevaluation. Scripts Furosemide (LASIX) 20 Mg Tablet 1 TAB PO DAILY for 30 Days, #30 TAB 0 Refills Prov: MAKAYLA JOHNSON MD 05/20/21 MAKAYLA JOHNSON MD May 20, 2021 14:36
[2021-05-20 14:56] LABS: BASO # 0.1 x10^3/uL (0.0-0.2); BASO % 1 % (0-3); EOS # 0.1 x10^3/uL (0.0-0.7); EOS % 2 % (0-3); HEMATOCRIT 38.5 % (39.0-53.0); HEMOGLOBIN 12.2 g/dL (13.0-17.5); LYMPH # 2.7 x10^3/uL (1.0-4.8); LYMPH % 38 % (24-48); MEAN CORPUSCULAR HEMOGLOBIN 23 pg (25-35); MEAN CORPUSCULAR HGB CONC 32 g/dL (31-37); MEAN CORPUSCULAR VOLUME 72 fL (79-100); MONO # 0.6 x10^3/uL (0.0-1.1); MONO % 8 % (0-9); NEUT # 3.8 x10^3/uL (1.8-7.7); NEUT % 52 % (31-73); PLATELET COUNT 350 x10^3/uL (140-400); RED BLOOD COUNT 5.32 x10^6/uL (4.30-5.70); RED CELL DISTRIBUTION WIDTH 15.4 % (11.5-14.5); WHITE BLOOD COUNT 7.3 x10^3/uL (4.0-11.0)
[2021-05-20 15:02] LABS: CALCIUM 8.5 mg/dL (8.5-10.1); CREATININE 1.1 mg/dL (0.7-1.3); GFR 89.7; MAGNESIUM 2.2 mg/dL (1.8-2.4)
--- NOTE | 2021-05-20 15:26 | RAD ---
EXAM: AP View of the chest DATE: 05/20/2021 2:42 PM INDICATION: Reason: sob, HF hx / Spl. Instructions: / History: COMPARISON: 03/30/2021 [id number] FINDINGS: Cardiomegaly. Patchy perihilar and lung base airspace opacities, mildly progressed compared to 2020. No pleural effusion. No pneumothorax. No focal parenchymal airspace opacity. IMPRESSION: Cardiomegaly with bilateral airspace opacities likely consolidative process such as pneumonia. Pulmon carol edema could have this appearance although no pleural effusions are seen. Electronically signed by: Mathieu Mendenhall MD (05/20/2021 3:24 PM) [id number]
[2021-05-20 15:42] LABS: HYPOCHROMIA MOD; MICROCYTOSIS SLIGHT; PLT ESTIMATE ADEQUATE (ADEQUATE)
[2021-05-20] MEDS ORDERED: FURO-69 PO (16:18)
[2021-05-20 16:27] VITALS: BP 143/90
--- NOTE | 2021-05-21 04:43 | EKG ---
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
--- NOTE | 2021-05-23 13:15 | NUR ---
IP: Informed pt of negative covid test. pt verbalized understanding.
== END 2021-05-20 16:28 | disposition home or self-care (01) ==
LOC: ER 12:15
DX: I42.8 Other cardiomyopathies (principal); J81.1 Chronic pulmonary edema; I11.0 Hypertensive heart disease with heart failure; I50.9 Heart failure, unspecified; F17.200 Nicotine dependence, unspecified, uncomplicated; Z20.822 Contact with and (suspected) exposure to COVID-19
CPT/HCPCS: 36415; 71045; 80048; 83735; 83880; 85025; 87426; 93005; 99285; U0003; U0005

== ENCOUNTER → 2021-08-25 | Outpatient (CLI) | payer OTHER ==
[~2021-08-25] MED LIST changes: -EMPA25TA PO; +EMPA25TA3 PO; +FURO-69 PO
--- NOTE | 2021-08-25 12:55 | CARD ---
MR#: [id number] Date of Study: 08/25/2021 Ordering Physician: ELIZABETH STOVALL, Referring Physician: Jasmina BARRIOS: Miles Kelly [facility] APPROVED REPORT EXAM: Two-dimensional and M-mode echocardiogram with Doppler and color Doppler. Other Information Quality : AverageHR: 84bpm Rhythm : NSR INDICATION Cardiomyopathy Congestive Heart Failure RISK FACTORS Hypertension Obesity Hyperlipidemia Smoking 2D DIMENSIONS Left Atrium(2D)6.1 (1.6-4.0cm)IVSd1.0 (0.7-1.1cm) Aortic Root(2D)4.1 (2.0-3.7cm)LVDd8.4 (3.9-5.9cm) LVOT Diameter2.5 (1.8-2.4cm)PWd1.3 (0.7-1.1cm) LA Mluext744 (18-58mL)LVDs7.2 (2.5-4.0cm) FS (%) 13.6 %SV106.5 ml LVEF(%)27.9 (>50%) M-Mode DIMENSIONS Left Atrium(MM)5.94 (2.5-4.0cm)Aortic Root4.12 (2.2-3.7cm) Aortic Valve AoV Peak Hieu.106.0cm/sAoV VTI19.0cm AO Peak GR.4.5mmHgLVOT Peak Hieu.51.2cm/s AO Mean GR.3mmHgAVA (VMAX)2.41cm2 Mitral Valve MV E Nencjkfu046.4cm/sMV E Peak Gr.6mmHg MV DECEL [id number] A Ylhriqmi77.2cm/s MV E Mean Gr.2mmHgE/A Ratio2.1 Pulmonary Valve PV Peak Fsihdkmj52.7cm/s Tricuspid Valve TR P. Vhobqntu066ui/sTR Peak Gr.34mmHg Pulmonary Vein S1 Zsvlhuwy32.9cm/sD2 Cfnqqrqz96.2cm/s LEFT VENTRICLE The Left Ventricle is severely dilated. There is normal left ventricular wall thickness. The ejection fraction is severely impaired. The Ejection Fraction is 25% There is global hypokinesis of the left ventricle. Transmitral Doppler flow pattern is Grade III-reversible restrictive diastolic dysfunction . No left ventricle thrombus noted on this study. There is no ventricular septal defect visualized. T here is no left ventricular aneurysm. There is no mass noted in the left ventricle. RIGHT VENTRICLE The right ventricle is normal size. There is normal right ventricular wall thickness. The right ventr icular systolic function is normal. ATRIA The left atrium is severely dilated. The right atrium size is normal. The interatrial septum is bowed towards the right consistent with elevated Left Atrial pressure. AORTIC VALVE The aortic valve is normal in structure and function. Doppler and Color Flow revealed no significant aortic regurgitation. There is no significant aortic valvular stenosis. There is no aortic valvular v egetation. MITRAL VALVE The mitral valve is normal in structure and function. There is no evidence of mitral valve prolapse. There is no mitral valve stenosis. Doppler and Color-flow revealed mild mitral regurgitation. TRICUSPID VALVE The tricuspid valve is normal in structure and function. Doppler and Color Flow revealed mild tricusp id regurgitation. The PA pressure was estimated at 42 mmHg. There is no tricuspid valve prolapse or v egetation. There is no tricuspid valve stenosis. PULMONIC VALVE Doppler and Color Flow revealed no pulmonic valvular regurgitation. There is no pulmonic valvular antonella nosis. GREAT VESSELS The aortic root is mildly enarged at 4.1 cm. The ascending aorta is normal in size. The IVC is normal in size and collapses >50% with inspiration. PERICARDIAL EFFUSION There is no pleural effusion. There is no evidence of significant pericardial effusion. Critical Notification Critical Value: No <Conclusion> The Left Ventricle is severely dilated. The ejection fraction is severely impaired. The Ejection Fraction is 25% There is global hypokinesis of the left ventricle. Doppler and Color Flow revealed mild tricuspid regurgitation. The PA pressure was estimated at 42 mmH g. Signed by : Alexis Montejo, Electronically Approved : 08/25/2021 12:54:47
== END ==
LOC: ECHO 09:01
PROVIDERS: ATTEND Internal Medicine Cardiovascular Disease
DX: I08.1 Rheumatic disorders of both mitral and tricuspid valves (principal); I77.810 Thoracic aortic ectasia; I50.22 Chronic systolic (congestive) heart failure
CPT/HCPCS: 93306; C8929

== ENCOUNTER 2021-08-30 01:44 | Inpatient (IN) | payer OTHER ==
[~2021-08-30] VITALS: Ht 172.7 cm; Wt 133.0 kg
--- NOTE | 2021-08-30 01:59 | PHYS DOC ---
Past Medical History Past Medical History: CHF, Hypertension Past Surgical History: No Surgical History Smoking Status: Current Every Day Smoker Alcohol Use: None Drug Use: None General Adult EDM: Chief Complaint: HYPERTENSION HPI: HPI: 40 year old male past medical history of nonischemic cardiomyopathy EF 25%, obstructive sleep apnea, HTN, HLD, tobacco use and diabetes, presents to the ed with c/o "pretty high blood pressure, " and he woke up this morning with a gradual onset, diffuse headache. States he took his blood pressure at this time but forgot what the number was. Thought if he took a warm shower tonight his blood pressure was going down. States it was 136/115. Denies any cocaine, no methamphetamine or excessive caffeine use. Denies any head or neck injury. States he has been to the hospital approximately year ago for his heart. Has not followed up with cardiology and states he has an appointment coming up these next 2 weeks. Forgot to take his BP medication today. Took 1 baby aspirin and 2 Advil prior to ED arrival. Review of Systems: Review of Systems: Constitutional: Denies fever or chills. [] Eyes: Denies change in visual acuity. [] HENT: Denies nasal congestion or sore throat. [] Respiratory: Denies cough or shortness of breath. [] Cardiovascular: Denies chest pain or edema. [] GI: Denies abdominal pain, nausea, vomiting, bloody stools or diarrhea. [] : Denies dysuria. [] Musculoskeletal: Denies back pain or joint pain. [] Integument: Denies rash. [] Neurologic: Denies headache, focal weakness or sensory changes. [] Endocrine: Denies polyuria or polydipsia. [] Lymphatic: Denies swollen glands. [] Psychiatric: Denies depression or anxiety. [] Heart Score: C/O Chest Pain: No Risk Factors: Risk Factors: DM, Current or recent (<one month) smoker, HTN, HLP, family history of CAD, obesity. Risk Scores: Score 0 - 3: 2.5% MACE over next 6 weeks - Discharge Home Score 4 - 6: 20.3% MACE over next 6 weeks - Admit for Clinical Observation Score 7 - 10: 72.7% MACE over next 6 weeks - Early Invasive Strategies Allergies: Allergies: Allergies Coded Allergies Type Severity Reaction Last Updated Verified No Known Drug Allergies 05/20/21 No Physical Exam: PE: Constitutional: Well developed, well nourished, no acute distress, non-toxic appearance. HENT: Normocephalic, atraumatic, Eyes: EOMI, conjunctiva normal, no discharge. Neck: Normal range of motion, supple, Cardiovascular: S1/2 present, regular rhythm Lungs & Thorax: Speaking in full sentences, bilateral equal chest rise, no tachypnea or increased work of breathing Abdomen: soft, no tenderness, Skin: Warm, dry, no erythema, no rash. [] Back: No tenderness, no CVA tenderness. [] Extremities: No tenderness, no cyanosis, no lower extremity edema Neurologic: Alert and oriented X 3, normal motor function, normal sensory function, no focal deficits noted. [] Psychologic: Affect normal, judgement normal, mood normal. [] EKG: EKG: Sinus rhythm 93 bpm, no axis deviation, QTC 470, no T wave inversion, no ST elevation or ST depression Radiology/Procedures: Radiology/Procedures: IMAGING REPORT Signed PATIENT: BYRON PRADO ACCOUNT: [id number] : 1980 LOCATION: ER AGE: 40 SEX: M EXAM STATUS: REG ER ORD. PHYSICIAN: MITIZ EPSTEIN DO REASON: headache, htn PROCEDURE: PORTABLE CHEST 1V AP chest x-ray HISTORY: Headache, hypertension. COMPARISON: Chest x-ray May 20, 2021 FINDINGS: Moderate to marked cardiomegaly stable. No pneumothorax. There are mild perihilar and lower lobe opacities could represent atelectasis or perhaps mild pulmonary edema. No pleural effusions. Bones are normal. IMPRESSION: Cardiomegaly stable. Mild perihilar and lower lobe opacities may be edema or atelectasis. Electronically signed by: Aranza Davila MD (08/30/2021 3:11 AM) [facility] DICTATED and SIGNED BY: ARANZA DAVILA MD DATE: 08/30/21 [id number] 0 Course & Med Decision Making: Course & Med Decision Making Pertinent Labs and Imaging studies reviewed. (See chart for details) Concern for orthopnea with cardiomegaly that appears worsening on chest x-ray from prior. Labs also show acute renal insufficiency. Patient states he takes losartan 25 mg daily, viral lactone 25 mg daily and metoprolol 50 mg daily. States he has not run out of these medications. History of Lasix twice daily but "ran out" of refills. Came to the ED because he cannot lie flat last night, he cannot sleep. History concerning for early CHF exacerbation. Patient also reports he has "a procedure where they look at my heart with a camera," scheduled for , Dr. Oliveira? Will admit for further medical management and cardiology consultation. Patient stable time of admission agrees with this plan. I have spoken with the patient and/or caregivers. I have explained the patient's condition, diagnosis and treatment plan based on the information available to me at this time. I have answered the patient's and/or caregivers questions and answered any concerns. The patient and/or caregivers have as good an understanding of the patient's diagnosis, condition and treatment plan as can be expected at this point. The patient has been stabilized within the capability of the emergency department. The patient will be transported for further care and management or will be moved to an observation or inpatient service. I have communicated with the staff or medical practitioner taking over this patient's care. Antonio Disclaimer: Antonio Disclaimer: This electronic medical record was generated, in whole or in part, using a voice recognition dictation system. Departure Departure Impression: Primary Impression: Orthopnea Additional Impressions: Hypertension Headache Acute renal insufficiency Disposition: ADMITTED INPATIENT Admitting Physician: ANUEL (Dr. Almodovar) Condition: STABLE Referrals: RANDA AZEVEDO MD (PCP) MITZI EPSTEIN DO Aug 30, 2021 01:59
[2021-08-30 02:23] LABS: BASO # 0.1 x10^3/uL (0.0-0.2); BASO % 1 % (0-3); EOS # 0.1 x10^3/uL (0.0-0.7); EOS % 2 % (0-3); HEMATOCRIT 40.6 % (39.0-53.0); HEMOGLOBIN 12.6 g/dL (13.0-17.5); LYMPH # 2.7 x10^3/uL (1.0-4.8); LYMPH % 46 % (24-48); MEAN CORPUSCULAR HEMOGLOBIN 23 pg (25-35); MEAN CORPUSCULAR HGB CONC 31 g/dL (31-37); MEAN CORPUSCULAR VOLUME 73 fL (79-100); MONO # 0.5 x10^3/uL (0.0-1.1); MONO % 9 % (0-9); NEUT # 2.4 x10^3/uL (1.8-7.7); NEUT % 41 % (31-73); PLATELET COUNT 228 x10^3/uL (140-400); RED BLOOD COUNT 5.57 x10^6/uL (4.30-5.70); RED CELL DISTRIBUTION WIDTH 15.6 % (11.5-14.5); WHITE BLOOD COUNT 5.8 x10^3/uL (4.0-11.0)
[2021-08-30 02:33] LABS: CALCIUM 8.7 mg/dL (8.5-10.1); CREATININE 1.4 mg/dL (0.7-1.3); GFR 67.9
[2021-08-30 02:39] LABS: ALBUMIN 3.6 g/dL (3.4-5.0); DIRECT BILIRUBIN 0.2 mg/dL (0.0-0.2); TOTAL PROTEIN 6.9 g/dL (6.4-8.2)
--- NOTE | 2021-08-30 03:13 | RAD ---
AP chest x-ray HISTORY: Headache, hypertension. COMPARISON: Chest x-ray May 20, 2021 FINDINGS: Moderate to marked cardiomegaly stable. No pneumothorax. There are mild perihilar and lower lobe opacities could represent atelectasis or perhaps mild pulmonary edema. No pleural effusions. Jasson karen are normal. IMPRESSION: Cardiomegaly stable. Mild perihilar and lower lobe opacities may be edema or atelectasis. Electronically signed by: Luis Enrique Davila MD (08/30/2021 3:11 AM) [facility]
--- NOTE | 2021-08-30 03:43 | EKG ---
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
[2021-08-30 03:53] LABS: PLT ESTIMATE ADEQUATE (ADEQUATE)
[2021-08-30 03:54] LABS: ANISOCYTOSIS SLIGHT; HYPOCHROMIA MOD; MICROCYTOSIS SLIGHT
[2021-08-30 04:15] VITALS: BP 145/84
--- NOTE | 2021-08-30 05:10 | NUR ---
Admit from ER to [facility] room 671 via [facility]. Stood from [facility] in room and ambulated to bed with steady gait. A/O x 4 on arrival. Denies pain. Reports SOA at times. Reports HTN prior to admit. VSS WNL on admit to the floor. Orientated to room and call light. Reviewed POC to include Tele monitor and Lab draws. Verbalized understanding. Resting in bed. Eating box lunch. Call light at hand.
[2021-08-30 07:00] VITALS: BP 133/100
[2021-08-30 11:00] VITALS: BP 137/82
--- NOTE | 2021-08-30 11:19 | HP ---
DATE OF SERVICE: 08/30/2021 ADMIT DATE: 08/30/2021 CHIEF COMPLAINT: Elevated blood pressure, shortness of breath, orthopnea, headache. HISTORY OF PRESENT ILLNESS: The patient is a pleasant 40-year-old male who has a 25% ejection fraction. He presented to the ER with the above chief complaints. Basically, it appears he probably has acute on chronic systolic congestive heart failure. Chest x-ray is showing cardiomegaly and vascular congestion. His BNP level is elevated at 3500. I discussed the case with ER physician. We are going to admit the patient and diurese him and consult Cardiology. PAST MEDICAL HISTORY: CHF, cardiomyopathy with 25% ejection fraction, hypertension, tobacco abuse, noncompliance, hyperlipidemia, obstructive sleep apnea. ALLERGIES: None. FAMILY HISTORY: Coronary artery disease. SOCIAL HISTORY: He smokes. No drink or drugs. MEDICATIONS: Reviewed, please refer to the MRAD. REVIEW OF SYSTEMS: GENERAL: No history of weight change, weakness or fevers. SKIN: No bruising, hair changes or rashes. EYES: No blurred, double or loss of vision. NOSE AND THROAT: No history of nosebleeds, hoarseness or sore throat. HEART: No history of palpitations, chest pain or shortness of breath on exertion. LUNGS: He complains of shortness of breath. GASTROINTESTINAL: Denies changes in appetite, nausea, vomiting, diarrhea or constipation. GENITOURINARY: No history of frequency, urgency, hesitancy or nocturia. NEUROLOGIC: Denies history of numbness, tingling, tremor or weakness. PSYCHIATRIC: No history of panic, anxiety or depression. ENDOCRINE: No history of heat or cold intolerance, polyuria or polydipsia. EXTREMITIES: Denies muscle weakness, joint pain, pain on walking or stiffness. PHYSICAL EXAMINATION: VITALS: Within normal limits and are stable. GENERAL: No apparent distress. Alert and oriented. HEENT: Normal cephalic atraumatic, external auditory canals are patent. EYES: Extraocular muscles are intact, pupils are equally round and reactive to light and accommodation. MUSCULOSKELETAL: Well developed, well nourished, good range of motion. ENDOCRINE: No thyromegaly was palpated, LYMPHATICS: No cervical chain or axillary nodes were noted. HEMATOPOIETIC: No bruising. NECK: Supple, no JVD, no thyromegaly was noted. LUNGS: He has bibasilar crackles. HEART: RRR, S1, S2 present. Peripheral pulses intact, no obvious murmurs were noted. ABDOMEN: Soft, nontender. Positive bowel sounds no organomegaly, normal bowel sounds. EXTREMITIES: Without any cyanosis, clubbing, or edema. Pedal pulses intact, Homans sign is negative. NEUROLOGIC: Normal speech, normal tone. A and O x 3, moves all extremities, no obvious focal deficits. PSYCHIATRIC: Normal affect, normal mood. Stable. SKIN: No ulcerations or rashes, good skin turgor, no jaundice. VASCULAR: Good capillary refill, neurovascular bundle appears to be intact. DIAGNOSTIC DATA: Creatinine is a little high at 1.4. Hemoglobin is a little low at 12.6. Chest x-ray shows vascular congestion and cardiomegaly. BNP level 3500. ASSESSMENT AND PLAN: Acute on chronic systolic and diastolic heart failure. The patient has been admitted. We will consult Cardiology. Cardiac monitoring, serial enzymes, serial EKGs, IV Lasix if Cardiology agrees. Home meds. DVT prophylaxis. Full code. RITA/DYLLAN DR: RITA/benoit TID: [id number]
--- NOTE | 2021-08-30 12:16 | NUR ---
SS following for discharge planning. SS reviewed pt chart and discussed with pt RN. Pt is from home and is currently on room air. Cardiology consulted. SS will continue to follow for discharge planning.
--- NOTE | 2021-08-30 12:38 | PDOC2 ---
JESUS DAN CHIMNEY SUPERVISOR BRICK 08/30/21 1238: CARDIAC CONSULT DATE OF CONSULT Date of Consult DATE: 08/30/21 TIME: 12:31 REASON FOR CONSULT Reason for Consult: Orthopnea/ARF REFERRING PHYSICIAN Referring Physician: [facility] SOURCE Source: Chart review, Patient HISTORY OF PRESENT ILLNESS HISTORY OF PRESENT ILLNESS This is a pleasant 40 yo male admitted for complains of shortness of breath. Reports that he has not been able to lay flat in the last 2 days and has been complaining of HOYOS. No chest pain, no nausea or vomiting. No fever or chills. Denies any dizziness or passing out. Reports that he ran out of lasSqrrl in June and has not been compliant with Na restriction. He does however does comply with fluid restriction. He weighs himself at times but could not really tell how much difference he has as he noted that he has been gaining wt. He uses his CPAP nightly. He is known for NICM and will need an AICD. PAST MEDICAL HISTORY Cardiovascular: HTN, Hyperlipidemia, Other (NICM) Endocrine: Diabetes PAST SURGICAL HISTORY Past Surgical History: No pertinent history FAMILY HISTORY Family History: Heart Disease (mother) SOCIAL HISTORY Smoke: No ALCOHOL: occassional Drugs: Marijuana Lives: with Family ALLERGIES ALLERGIES: Coded Allergies: No Known Drug Allergies (Unverified , 08/30/21) ROS Review of System 14 point ROS evaluated with pertinent positives noted per HPI PHYSICAL EXAM General: Alert, Oriented X3, Cooperative, No acute distress HEENT: Atraumatic, Mucous membr. moist/pink Lungs: Other (dimnished bases) Heart: Regular rate (SR), Normal S1, Normal S2 Abdomen: Soft, No tenderness, Other (obese) Extremities: No cyanosis, Other (trace LE edema) Skin: No breakdown, No significant lesion Neuro: Normal speech, Sensation intact Psych/Mental Status: Mental status NL, Mood NL MUSCULOSKELETAL: Full range of motion without pain VITALS/I&O VITALS/I&O: Vital Signs Date Time Temp Pulse Resp B/P (MAP) Pulse Ox O2 Delivery O2 Flow Rate FiO2 08/30/21 07:53 Room Air 08/30/21 07:00 97.6 93 18 133/100 (111) 96 97.6 I & O 08/29/21 08/29/21 08/30/21 15:00 23:00 07:00 Intake Total 1000 ml Output Total 0 ml Balance 1000 ml LABS Lab: Laboratory Tests Test 08/30/21 02:12 08/30/21 05:25 08/30/21 08:00 White Blood Count 5.8 x10^3/uL (4.0-11.0) Red Blood Count 5.57 x10^6/uL (4.30-5.70) Hemoglobin 12.6 g/dL (13.0-17.5) L Hematocrit 40.6 % (39.0-53.0) Mean Corpuscular Volume 73 fL (79-100) L Mean Corpuscular Hemoglobin 23 pg (25-35) L Mean Corpuscular Hemoglobin Concent 31 g/dL (31-37) Red Cell Distribution Width 15.6 % (11.5-14.5) H Platelet Count 228 x10^3/uL (140-400) Neutrophils (%) (Auto) 41 % (31-73) Lymphocytes (%) (Auto) 46 % (24-48) Monocytes (%) (Auto) 9 % (0-9) Eosinophils (%) (Auto) 2 % (0-3) Basophils (%) (Auto) 1 % (0-3) Neutrophils # (Auto) 2.4 x10^3/uL (1.8-7.7) Lymphocytes # (Auto) 2.7 x10^3/uL (1.0-4.8) Monocytes # (Auto) 0.5 x10^3/uL (0.0-1.1) Eosinophils # (Auto) 0.1 x10^3/uL (0.0-0.7) Basophils # (Auto) 0.1 x10^3/uL (0.0-0.2) Platelet Estimate Adequate (ADEQUATE) Hypochromasia Mod Anisocytosis Slight Microcytosis Slight Sodium Level 139 mmol/L (136-145) Potassium Level 4.0 mmol/L (3.5-5.1) Chloride Level 106 mmol/L (98-107) Carbon Dioxide Level 23 mmol/L (21-32) Anion Gap 10 (6-14) Blood Urea Nitrogen 18 mg/dL (8-26) Creatinine 1.4 mg/dL (0.7-1.3) H Estimated GFR (Cockcroft-Gault) 67.9 Glucose Level 132 mg/dL (70-99) H Calcium Level 8.7 mg/dL (8.5-10.1) Magnesium Level 2.0 mg/dL (1.8-2.4) Total Bilirubin 1.0 mg/dL (0.2-1.0) Direct Bilirubin 0.2 mg/dL (0.0-0.2) Aspartate Amino Transferase (AST) 29 U/L (15-37) Alanine Aminotransferase (ALT) 56 U/L (16-63) Alkaline Phosphatase 47 U/L (46-116) Troponin I High Sensitivity 30 ng/L (4-75) 30 ng/L (4-75) 30 ng/L (4-75) LD-Fbe-P-Type Natriuretic Peptide 3512 pg/mL (0-124) H Total Protein 6.9 g/dL (6.4-8.2) Albumin 3.6 g/dL (3.4-5.0) Laboratory Tests 08/30/21 02:12 Laboratory Tests 08/30/21 02:12 ECHOCARDIOGRAM ECHOCARDIOGRAM <Conclusion> The Left Ventricle is severely dilated. The ejection fraction is severely impaired. The Ejection Fraction is 25% There is global hypokinesis of the left ventricle. Doppler and Color Flow revealed mild tricuspid regurgitation. The PA pressure was estimated at 42 mmHg. DATE: 08/25/21 [id number] HEART CATH HEART CATH FINDINGS 1. Hemodynamics: Left ventricular end-diastolic pressure of 27 mmHg. No pullback gradient across the aortic valve. 2. Coronary angiography: a. The left main coronary artery arose from the left sinus of Valsalva, gave rise to the left anterior descending and left circumflex arteries and did not show any significant stenosis. b. The left anterior descending artery did not show any significant stenosis. c. The left circumflex artery did not show any significant stenosis. d. The right coronary artery was a large and dominant vessel arising from the right sinus of Valsalva that did not show any significant stenosis. Conclusion No significant coronary artery disease Recommendations Optimization of medical therapy for nonischemic cardiomyopathy and repeat 2D echo in 3 months to evaluate the need for AICD implantation. DATE: 04/05/21 [id number] ASSESSMENT/PLAN ASSESSMENT/PLAN 1. Acute on chronic HFrEF; likely precipitated by diet and being off lasix 2. HTN: controlled 3. HLP 4. Hx of NICM: recent EF remains low at 25% 5. Marijuana use 6. DM2 Recommendations 1. Restart HF meds including lasix 2. BMP and Mg in AM. 3. Will set up for outpt AICD placement 4. Lifestyle modification, diet compliance ELIZABETH STOVALL MD 08/31/21 0738: CARDIAC CONSULT ASSESSMENT/PLAN ASSESSMENT/PLAN Patient seen and examined 08/30/2021. Agree with RAILROAD CAR REPAIR SUPERVISOR's assessment and plan. Continue diuresis for acute on chronic systolic heart failure. Recent 2D echo showed LVEF 25%. Plan for AICD implantation as outpatient Thank you for your consultation JESUS DAN APRN Aug 30, 2021 12:38 ELIZABETH STOVALL MD Aug 31, 2021 07:38
[2021-08-30] MEDS ORDERED: FUROSEMIDE 40 MG/4 ML VIAL. IVP ONE (12:45)
[2021-08-30] MEDS: FAMOTIDINE 20 MG TABLET. PO SCH ×2 (13:00→20:27)
[2021-08-30] MEDS: LINAGLIPTIN 5 MG TABLET PO SCH (13:01)
[2021-08-30] MEDS: LOSARTAN POTASSIUM 25 MG TABLET. PO SCH (13:01)
[2021-08-30] MEDS: EMPAGLIFLOZIN 25 MG TABLET. PO SCH (13:01)
[2021-08-30] MEDS: SPIRONOLACTONE 25 MG TABLET PO SCH (13:01)
[2021-08-30] MEDS: METOPROLOL SUCC 24HR ER 50 MG TAB.ER.24H. PO SCH (13:01)
[2021-08-30] MEDS: ASPIRIN ENTERIC COATED 81 MG TABLET.DR. PO SCH (14:50)
[2021-08-30 15:00] VITALS: BP 138/85
[2021-08-30 18:49] VITALS: BP 127/76
--- NOTE | 2021-08-30 19:06 | EKG ---
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
[2021-08-30] MEDS ORDERED: ATORVASTATIN CALCIUM 10 MG TABLET. PO SCH (21:00)
[2021-08-30] MEDS ORDERED: SACUBITRIL/VALSARTAN 24/26MG TABLET. PO SCH (21:00)
[2021-08-30 22:24] VITALS: BP 143/82
[2021-08-31 02:13] VITALS: BP 139/87
[2021-08-31 07:00] VITALS: BP 150/97
[2021-08-31] MEDS ORDERED: FUROSEMIDE 40 MG TABLET. PO SCH (09:00)
[2021-08-31] MEDS: EMPAGLIFLOZIN 25 MG TABLET. PO SCH (09:35)
[2021-08-31] MEDS: LOSARTAN POTASSIUM 25 MG TABLET. PO SCH (09:36)
[2021-08-31] MEDS: SPIRONOLACTONE 25 MG TABLET PO SCH (09:36)
[2021-08-31] MEDS: METOPROLOL SUCC 24HR ER 50 MG TAB.ER.24H. PO SCH (09:36)
[2021-08-31] MEDS: LINAGLIPTIN 5 MG TABLET PO SCH (09:36)
[2021-08-31] MEDS: ASPIRIN ENTERIC COATED 81 MG TABLET.DR. PO SCH (09:36)
[2021-08-31] MEDS: FAMOTIDINE 20 MG TABLET. PO SCH (09:36)
[2021-08-31] MEDS ORDERED: FURO40TA4 PO (09:55)
--- NOTE | 2021-08-31 10:06 | DS ---
DATE OF DISCHARGE: 08/31/2021 ADMITTING DIAGNOSIS: Congestive heart failure. DISCHARGE DIAGNOSES: 1. Resolving acute on chronic systolic and diastolic heart failure. 2. Noncompliance with his heart failure medications. 3. Hypertension, hyperlipidemia, nonischemic cardiomyopathy. CONSULTS: Cardiology. PROCEDURES: None. HOSPITAL COURSE: The patient is a pleasant middle-aged male, who was not taking his meds. He states he ran out. He developed heart failure and volume overload. He was admitted. We diuresed him. We consulted Cardiology. Today, I saw and examined him. He is at his baseline and wants to go home. Cardiology is considering an outpatient AICD placement. If okay with Cardiology, we are going to go ahead and discharge. DISPOSITION: Home. ACTIVITY: As tolerated. DIET: Cardiac. MEDICATIONS: Please see the MRAD. Lasix 40 p.o. every day, aspirin 81 a day, atorvastatin 10 a day, Jardiance 25 daily, famotidine 20 b.i.d., Tradjenta 5 daily, losartan 25 a day, metoprolol 50 daily, Aldactone 25 a day. TOTAL TIME: [address]: Ignacio TID: [id number]
[2021-08-31 10:55] VITALS: BP 151/80
--- NOTE | 2021-08-31 12:05 | NUR ---
SS following up with discharge planning. SS reviewed pt chart and discussed with pt RN. Pt is currently on room air. Discharge order on the chart for home with self care.
--- NOTE | 2021-08-31 12:51 | PDOC ---
JESUS DAN BREWING DIRECTOR 08/31/21 1251: CARDIO Progress Notes Date and Time Date of Service 08/31/2021 Time of Evaluation 1240 Subjective Subjective: No Chest Pain, No shortness of breath, No Palpitations Vitals Vitals Vital Signs Date Time Temp Pulse Resp B/P (MAP) Pulse Ox O2 Delivery O2 Flow Rate FiO2 08/31/21 10:55 97.9 87 16 151/80 (103) 97 Room Air 97.9 Weight Weight [ ] Input and Output Intake and Output Intake and Output 08/31/21 07:00 Intake Total 740 ml Output Total 4250 ml Balance -3510 ml Intake Oral 740 ml Output Urine Total 4250 ml Physical Exam HEENT: Neck Supple W Full Motion Chest: Symmetric LUNGS: Other (diminished bases) Heart: RRR (SR) Abdomen: Soft N/T, Other (obese) Extremities: No Calf Tenderness Neurology: alert, oriented, follow commands Assessment Assessment 1. Acute on chronic HFrEF; likely precipitated by diet and being off lasix 2. HTN: controlled 3. HLP 4. Hx of NICM: recent EF remains low at 25% 5. Marijuana use 6. DM2 Recommendations 1. Lasix therapy. HF optimization. It appears that he is no longer on entresto, continue losartan and reevaluate resuming enetresto. Will increase losartan pending BMP 2. Will set up for outpt AICD placement 3. Lifestyle modification, diet compliance Justicifation of Admission Dx: Justifications for Admission: Justification of Admission Dx: Yes ELIZABETH STOVALL MD 09/01/21 0515: CARDIO Progress Notes Assessment Assessment Patient seen and examined 08/31/2021. Agree with HOSPICE HOME HEALTH AIDE's assessment and plan. Aacute on chronic systolic heart failure better compensated Recent 2D echo showed LVEF 25%. Plan for AICD implantation as outpatient JESUS DAN APRN Aug 31, 2021 12:51 EILZABETH STOVALL MD Sep 01, 2021 05:15
[2021-08-31 13:38] LABS: CREATININE 1.4 mg/dL (0.7-1.3); GFR 67.9; POTASSIUM 4.4 mmol/L (3.5-5.1)
[2021-08-31] MEDS ORDERED: LOSA-73 PO (15:28)
--- NOTE | 2021-08-31 16:20 | NUR ---
Discharge Note: BYRON PRADO Discharge instructions and discharge home medications reviewed with Patient and a copy given. All questions have been answered and understanding verbalized. The following instructions and handouts were given: heart failure, Na/fluid restriction. IV discontinued, no complications Patient discharged to home with self care. patient encouraged to make it to all follow up appointments including tomorrows w/ Dr. Dia. Patient given CHF information booklet. All belongings taken home with patient.
== END 2021-08-31 16:17 | disposition home or self-care (01) | DRG 291 ==
LOC: ER 01:44 → 6 SOUTH 02:30
PROVIDERS: ADMIT Internal Medicine; ATTEND Internal Medicine
DX: I11.0 Hypertensive heart disease with heart failure (principal); I50.43 Acute on chronic combined systolic (congestive) and diastolic (congestive) heart failure; Z68.41 Body mass index [BMI] 40.0-44.9, adult; E11.9 Type 2 diabetes mellitus without complications; I42.8 Other cardiomyopathies; E78.5 Hyperlipidemia, unspecified; F12.90 Cannabis use, unspecified, uncomplicated; F17.200 Nicotine dependence, unspecified, uncomplicated; Z82.49 Family history of ischemic heart disease and other diseases of the circulatory system; Z91.19 Patient's noncompliance with other medical treatment and regimen; G47.33 Obstructive sleep apnea (adult) (pediatric); N28.9 Disorder of kidney and ureter, unspecified; E66.9 Obesity, unspecified
CPT/HCPCS: 36415; 71045; 80048; 80076; 83735; 83880; 84484; 85025; 93005; 96374; J1940; 99285-25; G0378

== ENCOUNTER 2021-09-23 10:40 | Inpatient (IN) | payer OTHER ==
[~2021-09-23] VITALS: Ht 172.7 cm; Wt 131.0 kg
[2021-09-23] VITALS (9 sets, daily range): BP systolic 113–178; BP diastolic 82–105
[~2021-09-23 10:40] MED LIST changes: +FURO40TA4 PO; +HYDROmorphone 2 MG/ML INJ. IVP PRN; +IODIXANOL 320 200 ML in NS 200 ML IART ONE; +IV RINGERS,LACTATED 1000ML 1,000 ML IV SCH; +LOSA-73 PO; +MORPHINE SULFATE 2 MG/ML INJ. IVP PRN; +PROCHLORPERAZINE 10 MG/2 ML VIAL. IVP PRN; +fentaNYL PF VIAL 100 MCG/2 ML VIAL IVP PRN
[2021-09-23 11:26] LABS: CALCIUM 8.8 mg/dL (8.5-10.1); CREATININE 1.4 mg/dL (0.7-1.3); GFR 67.9; POTASSIUM 3.8 mmol/L (3.5-5.1)
[2021-09-23] MEDS ORDERED: IODIXANOL 320 200 ML in NS 200 ML IART ONE (11:30)
[2021-09-23] MEDS ORDERED: PROPOFOL 100 ML IV ONE (11:34)
[2021-09-23] MEDS ORDERED: PHENYLEPHRINE in 0.9% NACL PF 1 MG/10 ML SYRINGE. IV ONE (11:34)
[2021-09-23] MEDS ORDERED: KETAMINE HCL IN NACL, ISO-OSM 50 MG/5 ML SYRINGE ONE (11:35)
--- NOTE | 2021-09-23 11:35 | EKG ---
[facility] [address] [place] [address] Test Date: 2021-09-23 Test Time: 11:31:12 Pat Name: BYRON PRADO Department: Room: Gender: M Property Assessment Monitor: : 1980 Requested By: ELIZABETH DIA Order Number: [id number] Reading MD: Elizabeth Dia Measurements Intervals [place] Rate: 85 P: 56 WI: 166 QRS: 66 QRSD: 106 T: 190 QT: 372 QTc: 443 Interpretive Statements SINUS RHYTHM LEFT ATRIAL ABNORMALITY ST & T ABNORMALITY, CONSIDER INFERIOR ISCHEMIA OR LEFT VENTRICULAR STRAIN ABNORMAL ECG Electronically Signed On 09-30-2021 14:16:01 CDT by Elizabeth Dia
[2021-09-23 11:40] LABS: HEMATOCRIT 45.2 % (39.0-53.0); HEMOGLOBIN 14.1 g/dL (13.0-17.5); RED BLOOD COUNT 6.22 x10^6/uL (4.30-5.70); RED CELL DISTRIBUTION WIDTH 14.3 % (11.5-14.5); WHITE BLOOD COUNT 8.2 x10^3/uL (4.0-11.0)
[2021-09-23 11:57] LABS: PROTHROMBIN TIME PATIENT 14.1 SEC (11.7-14.0)
[2021-09-23] MEDS ORDERED: LIDOCAINE 2%/EPI 1:100,000 20 ML VIAL. ONE (12:47)
[2021-09-23] MEDS ORDERED: LIDOCAINE 2%/EPI 1:100,000 20 ML VIAL. IJ ONE (13:00)
[2021-09-23] MEDS ORDERED: ceFAZolin SODIUM 1 GM in IV NORMAL SALINE 100ML 100 ML IRR ONE (13:00)
[2021-09-23] MEDS ORDERED: ceFAZolin SODIUM 3 GM in IV DEXTROSE 5% 100ML 100 ML IV PRN (13:00)
--- NOTE | 2021-09-23 14:46 | CARD ---
MR#: [id number] Date of Study: 09/23/2021 Ordering Physician: ELIZABETH DIA, Referring Physician: ELIZABETH DIA, Tech: Alicja Ansari, RT(R) APPROVED REPORT EXAM Implantation of Medtronic dual-chamber automated implantable cardioverter defibrillator Defibrillation thresholds measurement at the time of implantation fluoro time: 6.6 min dose: 77 gycm2 INDICATIONS Primary prevention of sudden cardiac in a patient with nonischemic cardiomyopathy, chronic syst olic heart failure with LVEF 25% PROCEDURE After explaining the risks, benefits, and alternative options, informed consent was obtained from the patient. The patient was brought to the cardiac catheterization lab and the left chest and shoulder were prepp ed and draped in the usual fashion. IV conscious sedation was used throughout procedure with appropriate monitoring and was performed in the presence of a registered nurse who was an independent trained observer other than the physician p erforming the procedure. During this case, Fluoroscopy were used for imaging. Specimen(s) Removed: No Estimated Blood loss: 15 cc's. 30 cc of 2% lidocaine was infiltrated into the skin and subcutaneous tissues for local anesthesia. A n incision was made over the left infraclavicular fossa and using blunt dissection and cautery, a poc ket was created. Venous access was obtained in the left subclavian vein and 11 and 7 Monegasque sheaths were inserted. A Medtronic bipolar active-fixation right ventricular lead with single coil, model Sp rint Quatro 6935M [id number] was advanced under fluoroscopy guidance and the tip was positioned in the right ventricular apex. Following this, a Medtronic bipolar active-fixation right atrial lead model 761630 , serial number [id number] was positioned in the right atrial appendage under fluoroscopic guidance. The leads were secured into place and were attached to a Medtronic dual-chamber AICD generator mode l [id number], serial number [id number]. Device was placed in the pocket. Ventricular fibrillation was then induced to general defibrillation. Patient did not convert with 25 followed by 25 J internally and had to be shocked externally at 200 J before he got converted to sin us rhythm. Hence we decided to upgrade patient's right ventricular lead from single coil to dual coi l lead. The single coil lead was removed. Venous was again obtained in the left subclavian vein and 9 Monegasque sheath was inserted. A Medtronic bipolar active-fixation right ventricular lead model 6947 M 62, serial number [id number] was advanced under fluoroscopic guidance the tip was placed in the rig ht ventricular apex. The lead was attached to the dual-chamber AICD generator that was placed in the pocket. Ventricular fibrillation was then again induced to check the defibrillation thresholds. Jacob tran did not convert initially with 25 J but did convert with 35 J internally. DFTs were again sage ured, this time patient converted successfully with 30 J. We stopped further need to check since we had a safety margin of 5 J. The pocket was closed in 3 layers. Hemostasis was secured. The right ventricular lead showed a sensing amplitude of 9.3 mV, impedance of 744 ohms and a threshol d of 0.5 V. The right atrial lead showed a sensing amplitude of 4.9 mV, impedance of 797 ohms and a threshold of 0.8 V. Patient tolerated the procedure well. There were no immediate complications. CONCLUSION Successful implantation of Medtronic dual-chamber automated implantable cardioverter defibrillator fo r primary prevention of sudden cardiac in a patient with known history of severe nonischemic ca rdiomyopathy and chronic systolic heart failure with EF 25%. Defibrillation thresholds were measured at the time of implantation Signed by : Elizabeth Dia, Electronically Approved : 09/23/2021 14:46:01
--- NOTE | 2021-09-23 15:32 | RAD ---
XR CHEST 1V INDICATION: Post pacemaker / Spl. Instructions: / History: . COMPARISON STUDY: None. FINDINGS: Life Support Devices: Left pectoral transvenous dual-chamber ICD/pacemaker with leads overlying the r ight atrium and right ventricle. Lungs: Normal lung volume. Stable perihilar opacities. Pleura: No pleural effusion or pneumothorax. Heart and Mediastinum: Stable cardiomediastinal silhouette and great vessels. Bones and Soft Tissues: Stable regional skeleton and soft tissues. IMPRESSION: 1. Left pectoral pacemaker as above. No pneumothorax. 2. Stable perihilar opacities. Electronically signed by: Ap Barriga MD (09/23/2021 3:29 PM) [facility]
--- NOTE | 2021-09-23 15:45 | NUR ---
Patient arrived to room 675 via bed from PACU around 1545, had been there about 1 hour after AICD placement. Patient A&O but drowsy. VSS. Family at bedside. Patient complaints of AICD pain & tongue pain from biting right side of tongue when shocked. Ice pack placed on left chest site & ice given PO. Will continue to monitor.
[2021-09-23] MEDS ORDERED: oxyCODONE/APAP 5/325 1 TAB TABLET PO PRN (16:30)
[2021-09-23] MEDS ORDERED: ATORVASTATIN CALCIUM 10 MG TABLET. PO SCH (21:00)
[2021-09-23] MEDS: FAMOTIDINE 20 MG TABLET. PO SCH (22:11)
[2021-09-23] MEDS: METOPROLOL SUCC 24HR ER 50 MG TAB.ER.24H. PO SCH (23:26)
[2021-09-23] MEDS: LOSARTAN POTASSIUM 50 MG TABLET. PO SCH (23:28)
[2021-09-23] MEDS ORDERED: LABETALOL 20 MG/4 ML DISP.SYRIN. IVP PRN (23:30)
[2021-09-24 02:25] VITALS: BP 173/95
[2021-09-24 07:00] VITALS: BP 160/85
--- NOTE | 2021-09-24 07:23 | PDOC3 ---
Discharge Summary Visit Information Date of Admission: Sep 23, 2021 Date of Discharge: Sep 24, 2021 Admitting Diagnosis: Nonischemic cardiomyopathy Final Diagnosis Nonischemic cardiomyopathy Chronic systolic heart failure Hypertension Hyperlipidemia Brief Hospital Course Allergies Allergies Coded Allergies Type Severity Reaction Last Updated Verified No Known Drug Allergies 08/30/21 No Vital Signs Vital Signs Date Time Temp Pulse Resp B/P (MAP) Pulse Ox O2 Delivery O2 Flow Rate FiO2 09/24/21 02:25 98.4 96 18 173/95 (121) 98 Room Air 98.4 09/23/21 15:18 2.0 Lab Results Laboratory Tests Test 09/23/21 11:00 09/23/21 15:00 09/23/21 16:46 09/23/21 20:23 White Blood Count 8.2 x10^3/uL (4.0-11.0) Red Blood Count 6.22 x10^6/uL (4.30-5.70) Hemoglobin 14.1 g/dL (13.0-17.5) Hematocrit 45.2 % (39.0-53.0) Mean Corpuscular Volume 73 fL (79-100) Mean Corpuscular Hemoglobin 23 pg (25-35) Mean Corpuscular Hemoglobin Concent 31 g/dL (31-37) Red Cell Distribution Width 14.3 % (11.5-14.5) Platelet Count 236 x10^3/uL (140-400) Prothrombin Time 14.1 SEC (11.7-14.0) Prothromb Time International Ratio 1.1 (0.8-1.1) Sodium Level 141 mmol/L (136-145) Potassium Level 3.8 mmol/L (3.5-5.1) Chloride Level 105 mmol/L (98-107) Carbon Dioxide Level 26 mmol/L (21-32) Anion Gap 10 (6-14) Blood Urea Nitrogen 13 mg/dL (8-26) Creatinine 1.4 mg/dL (0.7-1.3) Estimated GFR (Cockcroft-Gault) 67.9 Glucose Level 111 mg/dL (70-99) Calcium Level 8.8 mg/dL (8.5-10.1) Glucose (Fingerstick) 96 mg/dL (70-99) 118 mg/dL (70-99) 113 mg/dL (70-99) Laboratory Tests Test 09/23/21 11:00 09/23/21 15:00 09/23/21 16:46 09/23/21 20:23 White Blood Count 8.2 x10^3/uL (4.0-11.0) Red Blood Count 6.22 x10^6/uL (4.30-5.70) Hemoglobin 14.1 g/dL (13.0-17.5) Hematocrit 45.2 % (39.0-53.0) Mean Corpuscular Volume 73 fL (79-100) Mean Corpuscular Hemoglobin 23 pg (25-35) Mean Corpuscular Hemoglobin Concent 31 g/dL (31-37) Red Cell Distribution Width 14.3 % (11.5-14.5) Platelet Count 236 x10^3/uL (140-400) Prothrombin Time 14.1 SEC (11.7-14.0) Prothromb Time International Ratio 1.1 (0.8-1.1) Sodium Level 141 mmol/L (136-145) Potassium Level 3.8 mmol/L (3.5-5.1) Chloride Level 105 mmol/L (98-107) Carbon Dioxide Level 26 mmol/L (21-32) Anion Gap 10 (6-14) Blood Urea Nitrogen 13 mg/dL (8-26) Creatinine 1.4 mg/dL (0.7-1.3) Estimated GFR (Cockcroft-Gault) 67.9 Glucose Level 111 mg/dL (70-99) Calcium Level 8.8 mg/dL (8.5-10.1) Glucose (Fingerstick) 96 mg/dL (70-99) 118 mg/dL (70-99) 113 mg/dL (70-99) Brief Hospital Course Mr. Zheng is a 40 old male with history of severe nonischemic cardiomyopathy, chronic systolic heart failure with EF 25% underwent Medtronic dual-chamber AICD implantation for primary prevention of sudden cardiac . Defibrillation thresholds were measured at the time of implantation. He was hemodynamically s table during his hospital stay. Device check showed normal function and chest x-ray did not show any pneumothorax. He will follow-up with our office for wound check in 2 weeks. Discharge Information Condition at Discharge: Stable Follow Up: Weeks (2) Disposition/Orders: D/C to Home Scheduled Aspirin (Aspirin Ec) 81 Mg Tablet.dr, 81 MG PO DAILYWBKFT for CHF for 30 Days, #30 Ref 11 Prescribed by: LYDIA AUGUST MD on 03/16/211620 Last Taken: Unknown Dose on 09/22/21 Last Action: Continued on 09/23/212048 by Olivier Ferguson Atorvastatin Calcium (Atorvastatin Calcium) 10 Mg Tablet, 10 MG PO QHS for CHF for 30 Days, #30 Ref 5 Prescribed by: LYDIA AUGUST MD on 03/16/211620 Last Taken: Unknown Dose on 09/22/21 Last Action: Continued on 09/23/212048 by Olivier Ferguson Empagliflozin (Jardiance) 25 Mg Tablet, 25 MG PO DAILY for DM2 for 30 Days, #30 Ref 5 Prescribed by: LYDIA AUGUST MD on 03/16/211620 Last Taken: Unknown Dose on 09/22/21 Last Action: Continued on 09/23/212048 by Olivier Ferguson Famotidine (Famotidine) 20 Mg Tablet, 20 MG PO BID, #25 Prescribed by: KAREL MONROY APRN on 03/08/21 1520 Last Taken: Unknown Dose on 09/22/21 Last Action: Continued on 09/23/212048 by Olivier Ferguson Furosemide (Furosemide) 40 Mg Tablet, 40 MG PO DAILY for . for 30 Days, #30 Prescribed by: NEETA MARK on 08/31/21 0955 Last Taken: Unknown Dose on 09/22/21 Last Action: Continued on 09/23/212048 by Olivier Ferguson Losartan Potassium (Losartan Potassium) 50 Mg Tablet, 50 MG PO DAILY for HYPERTENSION for 30 Days, #30 Ref 3 Prescribed by: JESUS DAN on 08/31/21 1528 Last Taken: Unknown Dose on 09/22/21 Last Action: Continued on 09/23/212048 by Olivier Ferguson Metoprolol Succinate (Toprol XL) 50 Mg Tab.er.24h, 50 MG PO DAILY for CHF for 30 Days, #30 Ref 5 Prescribed by: LYDIA AUGUST MD on 03/16/21 162 Last Taken: Unknown Dose on 09/22/21 Last Action: Continued on 09/23/212048 by Olivier Ferguson Spironolactone (Aldactone) 25 Mg Tablet, 25 MG PO DAILY for CHF for 30 Days, #30 Ref 5 Prescribed by: LYDIA AUGUST MD on 03/16/21 1621 Last Taken: Unknown Dose on 09/22/21 Last Action: Continued on 09/23/212048 by Olivier Ferguson Justicifation of Admission Dx: Justifications for Admission: Justification of Admission Dx: Yes ELIZABETH STOVALL MD Sep 24, 2021 07:23
[2021-09-24] MEDS ORDERED: ASPIRIN ENTERIC COATED 81 MG TABLET.DR. PO SCH (08:00)
[2021-09-24] MEDS ORDERED: SPIRONOLACTONE 25 MG TABLET PO SCH (09:00)
[2021-09-24] MEDS ORDERED: EMPAGLIFLOZIN 25 MG TABLET. PO SCH (09:00)
[2021-09-24] MEDS ORDERED: FUROSEMIDE 40 MG TABLET. PO SCH (09:00)
[2021-09-24] MEDS: LOSARTAN POTASSIUM 50 MG TABLET. PO SCH (10:14)
[2021-09-24] MEDS: FAMOTIDINE 20 MG TABLET. PO SCH (10:14)
[2021-09-24] MEDS: METOPROLOL SUCC 24HR ER 50 MG TAB.ER.24H. PO SCH (10:14)
[2021-09-24 10:57] VITALS: BP 146/91
--- NOTE | 2021-09-24 14:27 | RAD ---
AP and lateral chest HISTORY: Post pacemaker AP and lateral views were taken of the chest. There is a left pacemaker. There is no pneumothorax. T here are no acute infiltrates. Atrial and ventricular leads are noted. The heart is enlarged. There i s no effusion. The arms obscures visualization on the lateral view. IMPRESSION: 1. Left pacemaker. 2. No pneumothorax. 3. No new infiltrates. Electronically signed by: Narciso Hester MD (09/24/2021 2:25 PM) [id number]
--- NOTE | 2021-09-24 15:11 | NUR ---
DISCHARGED PATIENT TO HOME. DISCHARGE INSTRUCTIONS GIVEN. PIV AND HEART MONITOR REMOVED.
== END 2021-09-24 15:00 | disposition home or self-care (01) | DRG 242 ==
LOC: SURG 10:40 → 6 SOUTH 12:45
PROVIDERS: ADMIT Internal Medicine Cardiovascular Disease; ATTEND Internal Medicine Cardiovascular Disease
PROC: 02H63JZ Insertion of Pacemaker Lead into Right Atrium, Percutaneous Approach (ICD-10-PCS; 2021-09-23)
PROC: 02HK3JZ Insertion of Pacemaker Lead into Right Ventricle, Percutaneous Approach (ICD-10-PCS; 2021-09-23)
PROC: 0JH606Z Insertion of Pacemaker, Dual Chamber into Chest Subcutaneous Tissue and Fascia, Open Approach (ICD-10-PCS; principal; 2021-09-23 12:00)
DX: I11.0 Hypertensive heart disease with heart failure (principal); I50.23 Acute on chronic systolic (congestive) heart failure; I42.8 Other cardiomyopathies; E78.5 Hyperlipidemia, unspecified; E11.9 Type 2 diabetes mellitus without complications; Z82.49 Family history of ischemic heart disease and other diseases of the circulatory system
CPT/HCPCS: 33249; 36415; 71045; 71046; 80048; 82962; 85027; 85610; 93005; 93640; C1721; J0690; J2370; J2704; J3490; J7050; J7060; Q9967; G0378; J7030